=== PATIENT | female | born 1950 | race Caucasian/White ===

== ENCOUNTER 2017-01-10 08:01 | Emergency (ER) | payer MEDICAID ==
[~2017-01-10] VITALS: Ht 170.2 cm; Wt 51.0 kg
[~2017-01-10 08:01] MED LIST: MOBI7.5T PO
[2017-01-10 08:06] VITALS: BP 169/87; PULSE 98; RESP 20; TEMP 97.8; O2SAT 97
--- NOTE | 2017-01-10 08:24 | PD ---
HPI Chief Complaint: Fall Time Seen by Provider: 08:12 Travel History International Travel<30 days: No Contact w/Intl Traveler<30days: No Traveled to known affect area: No History of Present Illness HPI The patient was seen and examined in the presence of the nurse. She complains of right sided rib cage pain. One week ago she tripped over a rock and fell. She landed on her right side rib cage. She has pain. Worse with movement. Severity is moderate. Duration one week. No alleviating factors. PFSH Past Medical History Arthritis: Yes Asthma: No Heart Rhythm Problems: No Cardiovascular Problems: Yes (PHLEBITIS) High Cholesterol: No Chest Pain: Yes (on admission 11/2014) Congestive Heart Failure: No COPD: No Cerebrovascular Accident: No Diminished Hearing: No Gastrointestinal Disorders: Yes ("sharp pains ,that is it." ) Headaches: No Hiatal Hernia: No Hypertension: No Immune Disorder: No Implanted Vascular Access Dvce: Yes Kidney Stones: Yes (denied) Musculoskeletal: Yes Neurologic: No Respiratory: No Immunizations Current: No Migraines: Yes (as a child ) Seizures: No Sleep Apnea: No Menopausal: Yes : 0 Past Surgical History Abdominal Surgery: No Appendectomy: Yes Cardiac Surgery: No Ear Surgery: No Endocrine Surgery: No Eye Surgery: No Genitourinary Surgery: No Gynecologic Surgery: No Neurologic Surgery: Yes (CYST REMOVED FROM SPINE) Oral Surgery: No Thoracic Surgery: No Tonsillectomy: Yes Other Surgery: Yes Social History Alcohol Use: No Tobacco Use: No Substance Use: No Allergies-Medications (Allergen,Severity, Reaction): Coded Allergies: *MDRO Multi-Drug Resistant Organism (Verified Adverse Reaction, Unknown, ) 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 Reported Meds & Prescriptions Reported Meds & Active Scripts Active Percocet (Oxycodone-Acetaminophen) 5-325 mg Tab 1 Tab PO Q6H PRN Mobic (Meloxicam) 7.5 Mg Tab 7.5 Mg PO Q12HR 30 Days Review of Systems General / Constitutional: No: Fever HENT: No: Headaches Cardiovascular: Positive: Chest Pain or Discomfort Respiratory: No: Cough Gastrointestinal: No: Nausea Physical Exam Narrative RESPIRATORY: Respiratory effort unlabored, no retractions or use of accessory muscles. Breath sounds are clear and symmetric. CARDIOVASCULAR: Regular rate and rhythm without murmur. Extremities showed no edema or varicosities. GASTROINTESTINAL: Abdomen soft, non-tender, nondistended. Positive bowel sounds. No hepato-splenomegaly, or palpable masses. No guarding. SKIN: Focused skin assessment reveals no rash or ulcers. Skin is warm and dry. Palpation shows no induration or nodules. Muscle skull:. She has a lot of tenderness in the mid and anterior axillary line of the right rib cage. There is no ecchymosis or crepitus. Data Data Last Documented VS Vital Signs Date Time Temp Pulse Resp B/P Pulse Ox O2 Delivery O2 Flow Rate FiO2 01/10/17 08:25 90 16 97 Room Air 01/10/17 08:06 97.8 169/87 Orders Chest, Single Ap (01/10/17 ) Morphine Inj (Morphine Inj) (01/10/17 08:30) Ondansetron Inj (Zofran Inj) (01/10/17 08:30) MDM Medical Decision Making Medical Screen Exam Complete: Yes Emergency Medical Condition: Yes Medical Record Reviewed: Yes Differential Diagnosis Rib fracture, rib contusion, pneumothorax Narrative Course I have reviewed the patient's electronic medical record. She was here for costochondritis January 2016 I reviewed her chest x-ray which is normal No rib fracture or pneumothorax I gave her injection of morphine and Zofran for symptom relief I wrote her pain medication There are no objective findings on exam and has normal x-ray. This injury is 1-week-old She should follow up with primary care and hopefully she will have some gradual resolution Diagnosis Primary Impression: Contusion of rib on right side Qualified Code: S20.211A - Contusion of rib on right side, initial encounter Additional Instructions: The patient was advised to follow up with their physician and return if they worsen. The patient was warned about potential sedation for the medications they will receive on prescription. Med/Other Pt SpecificInfo: Prescription(s) given Scripts Oxycodone-Acetaminophen (Percocet)5-325 mg Tab1 Tab PO Q6H PRN (PAIN) #20 TAB Ref 0 Prov:Colt Esposito MD 01/10/17 Disposition: 01 DISCHARGE HOME Condition: Stable Colt Esposito MD Jan 10, 2017 08:24
[2017-01-10] MEDS ORDERED: ONDANSETRON HCL 4 MG/2 ML VIAL IM ONE (08:30)
[2017-01-10] MEDS ORDERED: MORPHINE SULFATE 4 MG/ML INJ IM ONE (08:30)
--- NOTE | 2017-01-10 08:44 | RADHPO ---
EXAM DATE/TIME: 01/10/2017 08:24 [facility] COMPARISON: CHEST SINGLE AP, February 24, 2016, 11:39. INDICATIONS : Right side rib pain post fall last week. MEDICAL HISTORY : Arthritis. Renal calculi. Ulcers. SURGICAL HISTORY : Appendectomy. Tonsillectomy. Discectomy, cervical. ENCOUNTER: Initial ACUITY: 1 week PAIN SCORE: 10/10 LOCATION: Right chest FINDINGS: A single view of the chest demonstrates the lungs to be symmetrically aerated without evidence of mas s, infiltrate or effusion. The cardiomediastinal contours are unremarkable. Osseous structures are intact. CONCLUSION: No acute disease. No evidence of displaced rib fracture. Delio Rivera MD on January 10, 2017 at 8:42 Board Certified Radiologist. This report was verified electronically.
[2017-01-10] MEDS ORDERED: PERC5TAB12 PO (09:12)
[2017-01-10 09:15] VITALS: RESP 16
[2017-01-10 09:39] VITALS: BP 156/79
== END 2017-01-10 09:41 | disposition home or self-care (01) ==
LOC: PHED 08:01
DX: S20.211A Contusion of right front wall of thorax, initial encounter (principal); Z87.39 Personal history of other diseases of the musculoskeletal system and connective tissue; Z86.79 Personal history of other diseases of the circulatory system; Z87.19 Personal history of other diseases of the digestive system; W01.0XXA Fall on same level from slipping, tripping and stumbling without subsequent striking against object, initial encounter
CPT/HCPCS: 71010; 96372; 99283; J2270; J2405

== ENCOUNTER 2017-07-03 14:51 | Inpatient (IN) | payer MEDICAID, OTHER ==
[2017-07-03] VITALS (8 sets, daily range): BP systolic 124–141; BP diastolic 53–69; PULSE 84–105; RESP 15–18; TEMP 96.9–99.1; O2SAT 94–99
[~2017-07-03] VITALS: Ht 170.2 cm; Wt 57.1 kg
[~2017-07-03 14:51] MED LIST changes: +PERC5TAB12 PO
--- NOTE | 2017-07-03 15:25 | PD ---
HPI Chief Complaint: GI Complaint Time Seen by Provider: 15:09 Travel History International Travel<30 days: No Contact w/Intl Traveler<30days: No Traveled to known affect area: No History of Present Illness HPI C/O CRAMPY ABD PAIN, 6/10, DIARRHEA FOR COUPLE OF WEEKS, THAT DOESN'T SEEM TO BE IMPROVING, WATERY. PATIENT STATES THAT SHE TOOK ALLEVE FOR HER BACK PAIN. DENIES TAKING ANY ANTIBIOTICS AT ALL GOING BACK 2-3MONTHS. PCP IS DR AMAYA PMHX: OSTEOARTHRITIS, SLIPPED DISK, "CROOKED BACK", H/O NECK SURGERY AND BLEEDING ULCER. PFSH Past Medical History Arthritis: Yes Asthma: No Heart Rhythm Problems: No Cardiovascular Problems: Yes (PHLEBITIS) High Cholesterol: No Chest Pain: Yes Congestive Heart Failure: No COPD: No Cerebrovascular Accident: No Diminished Hearing: No Gastrointestinal Disorders: Yes ("sharp pains ,that is it." ) Headaches: No Hiatal Hernia: No Hypertension: No Immune Disorder: No Implanted Vascular Access Dvce: Yes Kidney Stones: Yes (denied) Musculoskeletal: Yes Neurologic: No Respiratory: No Immunizations Current: No Migraines: Yes (as a child ) Seizures: No Sleep Apnea: No Ulcer: Yes (states hx of bleeding ulcers) Influenza Vaccination: No ?: Not Menopausal: Yes : 0 Past Surgical History Abdominal Surgery: No Appendectomy: Yes Cardiac Surgery: No Ear Surgery: No Endocrine Surgery: No Eye Surgery: No Genitourinary Surgery: No Gynecologic Surgery: No Neurologic Surgery: Yes (CYST REMOVED FROM SPINE) Oral Surgery: No Thoracic Surgery: No Tonsillectomy: Yes Other Surgery: Yes Social History Alcohol Use: No Tobacco Use: No (QUIT 2009) Substance Use: No Allergies-Medications (Allergen,Severity, Reaction): Coded Allergies: *MDRO Multi-Drug Resistant Organism (Verified Adverse Reaction, Unknown, 07/03/17) 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 Reported Meds & Prescriptions Reported Meds & Active Scripts Active No Active Prescriptions or Reported Medications Physical Exam Narrative GENERAL: SKIN: Warm and dry. HEAD: Atraumatic. Normocephalic. EYES: Pupils equal and round. No scleral icterus. No injection or drainage. ENT: No nasal bleeding or discharge. Mucous membranes pink and moist. NECK: Trachea midline. No JVD. CARDIOVASCULAR: Regular rate and rhythm. RESPIRATORY: No accessory muscle use. Clear to auscultation. Breath sounds equal bilaterally. GASTROINTESTINAL: Abdomen soft, DIFFUSELY TTP, nondistended. HYPOACTIVE BOWEL SOUNDS MUSCULOSKELETAL: Extremities without clubbing, cyanosis, or edema. No obvious deformities. NEUROLOGICAL: Awake and alert. No obvious cranial nerve deficits. Motor grossly within normal limits. Five out of 5 muscle strength in the arms and legs. Normal speech. PSYCHIATRIC: Appropriate mood and affect; insight and judgment normal. Data Data Last Documented VS Vital Signs Date Time Temp Pulse Resp B/P (MAP) Pulse Ox O2 Delivery O2 Flow Rate FiO2 07/03/17 17:53 100 15 131/54 (79) 97 07/03/17 15:54 Room Air 07/03/17 15:09 99.1 Orders Orders Complete Blood Count With Diff (07/03/17 15:09) Comprehensive Metabolic Panel (07/03/17 15:09) Lipase (07/03/17:09) Prothrombin Time / Inr (Pt) (07/03/17:09) Act Partial Throm Time (Ptt) (07/03/17 15:09) Urinalysis - C+S If Indicated (07/03/17 15:09) Ct Abd/Pel W/O Iv Contrast (07/03/17 15:09) Iv Access Insert/Monitor (07/03/17 15:09) Ecg Monitoring (07/03/17 15:09) Oximetry (07/03/17 15:09) NPO (07/03/17 15:09) Sodium Chloride 0.9% Flush (Ns Flush) (07/03/17 15:15) Enteric Path (Stool) (07/03/17 15:56) C Diff Toxin Pcr (07/03/17 15:56) Giardia Antigen (Stool) (07/03/17 15:56) Stool Ova And Parasite Screen (07/03/17 15:56) Stool Wbc (Leukocytes) (07/03/17 15:56) Hydromorphone Pf Inj (Dilaudid Pf Inj) (07/03/17 16:00) Ondansetron Inj (Zofran Inj) (07/03/17 16:00) Metronidazole 500 Mg Inj (Flagyl 500 Mg (07/03/17 16:00) Hydromorphone Pf Inj (Dilaudid Pf Inj) (07/03/17 17:15) Type And Screen (07/03/17 17:03) Lactic Acid (07/03/17 17:03) Red Blood Cells (Rbc) (07/03/17 17:17) Blood Product Administration (07/03/17 17:17) Sodium Chlor 0.9% 250 Ml Inj (Ns 250 Ml (07/03/17 17:30) Admit Order (Ed Use Only) (07/03/17 ) Labs Laboratory Tests Test 07/03/17 15:50 07/03/17 16:58 07/03/17 17:16 Prothrombin Time 11.8 SEC Prothromb Time International Ratio 1.1 RATIO Activated Partial Thromboplast Time 23.8 SEC Blood Urea Nitrogen 11 MG/DL Creatinine 0.72 MG/DL Random Glucose 99 MG/DL Total Protein 7.2 GM/DL Albumin 2.6 GM/DL Calcium Level 8.9 MG/DL Alkaline Phosphatase 144 U/L Aspartate Amino Transf (AST/SGOT) 26 U/L Alanine Aminotransferase (ALT/SGPT) 28 U/L Total Bilirubin 0.2 MG/DL Sodium Level 138 MEQ/L Potassium Level 3.2 MEQ/L Chloride Level 105 MEQ/L Carbon Dioxide Level 24.4 MEQ/L Anion Gap 9 MEQ/L Estimat Glomerular Filtration Rate 82 ML/MIN Lipase 116 U/L White Blood Count 4.4 TH/MM3 Red Blood Count 2.77 MIL/MM3 Hemoglobin 5.2 GM/DL Hematocrit 17.9 % Mean Corpuscular Volume 64.7 FL Mean Corpuscular Hemoglobin 18.8 PG Mean Corpuscular Hemoglobin Concent 29.1 % Red Cell Distribution Width 18.6 % Platelet Count 484 TH/MM3 Mean Platelet Volume 7.4 FL Neutrophils (%) (Auto) 49.5 % Lymphocytes (%) (Auto) 37.1 % Monocytes (%) (Auto) 11.6 % Eosinophils (%) (Auto) 1.5 % Basophils (%) (Auto) 0.3 % Neutrophils # (Auto) 2.2 TH/MM3 Lymphocytes # (Auto) 1.6 TH/MM3 Monocytes # (Auto) 0.5 TH/MM3 Eosinophils # (Auto) 0.1 TH/MM3 Basophils # (Auto) 0.0 TH/MM3 CBC Comment AUTO DIFF Differential Comment AUTO DIFF CONFIRMED Ovalocytes 1+ Lactic Acid Level 0.7 mmol/L MDM Medical Decision Making Medical Screen Exam Complete: Yes Emergency Medical Condition: Yes Medical Record Reviewed: Yes Differential Diagnosis ENTERITIS V COLITIS V DIVERTIC V CHRONIC PANCREATITIS V ELECTROLYTE ABNL V C DIFF Narrative Course CURRENTLY WILL SIGN PATIENT OUT PENDING BLOODWORK AND REEVALUATION Scripts No Active Prescriptions or Reported Meds Jovany Robins MD Jul 03, 2017 15:25
--- NOTE | 2017-07-03 15:49 | RADRPT ---
EXAM DATE/TIME: 07/03/2017 15:29 [facility] COMPARISON: ANGIOGRAM, GASTRODUODENAL ART, January 13, 2015, 12:38. INDICATIONS : Diarrhea with abdominal and back pain for one month. ORAL CONTRAST: No oral contrast ingested. RADIATION DOSE: 4.54 CTDIvol (mGy) MEDICAL HISTORY : None Central cord syndrome. SURGICAL HISTORY : None. ENCOUNTER: Initial ACUITY: 1 month PAIN SCALE: 4/10 LOCATION: abdomen TECHNIQUE: Volumetric scanning of the abdomen and pelvis was performed. Using automated exposure control and ad justment of the mA and/or kV according to patient size, radiation dose was kept as low as reasonably achievable to obtain optimal diagnostic quality images. DICOM format image data is available electro nically for review and comparison. FINDINGS: LOWER LUNGS: Minimal scarring in the lung bases. LIVER: Pneumobilia likely related to previous sphincterotomy or other biliary tract intervention. No evidenc e of focal liver mass. SPLEEN: Normal size without lesion. PANCREAS: Within normal limits. KIDNEYS: Multiple nonobstructing stones present bilaterally involving upper and mid pole collecting system on the right and upper mid and lower pole collecting system on the left. ADRENAL GLANDS: Within normal limits. VASCULAR: Embolization coils present in the region of the proximal gastroduodenal artery and the proximal gastr oepiploic artery BOWEL/MESENTERY: Mild nonspecific fluid and gaseous distention of the colon. No evidence of wall thickening or surroun ding inflammatory changes. Small bowel is focally unremarkable. ABDOMINAL WALL: Within normal limits. RETROPERITONEUM: There is no lymphadenopathy. BLADDER: No wall thickening or mass. REPRODUCTIVE: Within normal limits. INGUINAL: There is no lymphadenopathy or hernia. MUSCULOSKELETAL: Within normal limits for patient age. CONCLUSION: Pneumobilia. Nonobstructing kidney stones. Nonspecific fluid and gaseous distention of the colon Rajesh Hayden MD on July 03, 2017 at 15:40 Board Certified Radiologist. This report was verified electronically.
[2017-07-03] MEDS ORDERED: HYDROmorphone HCL PF 2 MG/ML VIAL IVS ONE (16:00)
[2017-07-03] MEDS ORDERED: ONDANSETRON HCL 4 MG/2 ML VIAL IVP ONE (16:00)
[2017-07-03] MEDS ORDERED: metroNIDAZOLE 500 MG INJ 100 ML IV ONE (16:00)
[2017-07-03 16:05] LABS: CHLORIDE 105 MEQ/L (98-107); POTASSIUM 3.2 MEQ/L (3.5-5.1); SODIUM (NA) 138 MEQ/L (136-145)
[2017-07-03 16:09] LABS: ANION GAP 9 MEQ/L (5-15); APTT (PATIENT) 23.8 SEC (24.3-30.1); BICARBONATE 24.4 MEQ/L (21.0-32.0); BLOOD UREA NITROGEN 11 MG/DL (7-18); INTERNATIONAL NORMALIZED RATIO 1.1 RATIO; PROTHROMBIN TIME - PATIENT 11.8 SEC (9.8-11.6)
--- NOTE | 2017-07-03 16:12 | PD ---
Data Data Last Documented VS Vital Signs Date Time Temp Pulse Resp B/P (MAP) Pulse Ox O2 Delivery O2 Flow Rate FiO2 07/03/17 17:53 100 15 131/54 (79) 97 07/03/17 15:54 Room Air 07/03/17 15:09 99.1 Orders Orders Complete Blood Count With Diff (07/03/17 15:09) Comprehensive Metabolic Panel (07/03/17 15:09) Lipase (07/03/17 15:09) Prothrombin Time / Inr (Pt) (07/03/17 15:09) Act Partial Throm Time (Ptt) (07/03/17 15:09) Urinalysis - C+S If Indicated (07/03/17 15:09) Ct Abd/Pel W/O Iv Contrast (07/03/17 15:09) Iv Access Insert/Monitor (07/03/17 15:09) Ecg Monitoring (07/03/17 15:09) Oximetry (07/03/17 15:09) NPO (07/03/17 15:09) Sodium Chloride 0.9% Flush (Ns Flush) (07/03/17 15:15) Enteric Path (Stool) (07/03/17 15:56) C Diff Toxin Pcr (07/03/17 15:56) Giardia Antigen (Stool) (07/03/17 15:56) Stool Ova And Parasite Screen (07/03/17 15:56) Stool Wbc (Leukocytes) (07/03/17 15:56) Hydromorphone Pf Inj (Dilaudid Pf Inj) (07/03/17 16:00) Ondansetron Inj (Zofran Inj) (07/03/17 16:00) Metronidazole 500 Mg Inj (Flagyl 500 Mg (07/03/17 16:00) Hydromorphone Pf Inj (Dilaudid Pf Inj) (07/03/17 17:15) Type And Screen (07/03/17 17:03) Lactic Acid (07/03/17 17:03) Red Blood Cells (Rbc) (07/03/17 17:17) Blood Product Administration (07/03/17 17:17) Sodium Chlor 0.9% 250 Ml Inj (Ns 250 Ml (07/03/17 17:30) Admit Order (Ed Use Only) (07/03/17 ) Labs Laboratory Tests Test 07/03/17 15:50 07/03/17 16:58 07/03/17 17:16 Prothrombin Time 11.8 SEC Prothromb Time International Ratio 1.1 RATIO Activated Partial Thromboplast Time 23.8 SEC Blood Urea Nitrogen 11 MG/DL Creatinine 0.72 MG/DL Random Glucose 99 MG/DL Total Protein 7.2 GM/DL Albumin 2.6 GM/DL Calcium Level 8.9 MG/DL Alkaline Phosphatase 144 U/L Aspartate Amino Transf (AST/SGOT) 26 U/L Alanine Aminotransferase (ALT/SGPT) 28 U/L Total Bilirubin 0.2 MG/DL Sodium Level 138 MEQ/L Potassium Level 3.2 MEQ/L Chloride Level 105 MEQ/L Carbon Dioxide Level 24.4 MEQ/L Anion Gap 9 MEQ/L Estimat Glomerular Filtration Rate 82 ML/MIN Lipase 116 U/L White Blood Count 4.4 TH/MM3 Red Blood Count 2.77 MIL/MM3 Hemoglobin 5.2 GM/DL Hematocrit 17.9 % Mean Corpuscular Volume 64.7 FL Mean Corpuscular Hemoglobin 18.8 PG Mean Corpuscular Hemoglobin Concent 29.1 % Red Cell Distribution Width 18.6 % Platelet Count 484 TH/MM3 Mean Platelet Volume 7.4 FL Neutrophils (%) (Auto) 49.5 % Lymphocytes (%) (Auto) 37.1 % Monocytes (%) (Auto) 11.6 % Eosinophils (%) (Auto) 1.5 % Basophils (%) (Auto) 0.3 % Neutrophils # (Auto) 2.2 TH/MM3 Lymphocytes # (Auto) 1.6 TH/MM3 Monocytes # (Auto) 0.5 TH/MM3 Eosinophils # (Auto) 0.1 TH/MM3 Basophils # (Auto) 0.0 TH/MM3 CBC Comment AUTO DIFF Differential Comment AUTO DIFF CONFIRMED Ovalocytes 1+ Lactic Acid Level 0.7 mmol/L MDM Supervised Visit with SUSHILA: No Narrative Course Patient care assumed from Dr. Robins at 1600. This is a 66-year-old female presents emergency Department with generalized abdominal pain and diarrhea for the past month. Found to be significantly anemic in the emergency department requiring transfusion. Tachycardic but normotensive. Noncontrast CT scan of the abdomen was performed by Dr. Robins which did show some pneumobilia. There is no portal gas however. Patient does have some tenderness on examination, rectal exam did show some mucus in the stool but no gross blood. He was transfused in the emergency department after risk-benefit complications and alternatives were discussed blood transfusion. Patient verbalized understanding and agreement to those risks. Labs otherwise were fairly unremarkable. Patient was discussed with Dr. Torres for admission who is agreeable. She was started on Flagyl in the emergency department for presumed C. difficile. Has not been able to give a stool sample as of yet. Diagnosis Primary Impression: Acute blood loss anemia Additional Impression: Abdominal pain Admitting Information Admitting Physician Requests: Admit Scripts No Active Prescriptions or Reported Meds Condition: Stable Issa Woodard MD Jul 03, 2017 16:12
[2017-07-03 16:13] LABS: ALT (GPT) 28 U/L (10-53); AST (GOT) 26 U/L (15-37)
[2017-07-03 16:14] LABS: GLOMERULAR FILTRATION RATE 82 ML/MIN (>89); TOTAL BILIRUBIN ADULT 0.2 MG/DL (0.2-1.0)
[2017-07-03 16:15] LABS: ALKALINE PHOSPHATASE 144 U/L (45-117)
[2017-07-03 17:11] LABS: AUTOMATED NEUTROPHIL # 2.2 TH/MM3 (1.8-7.7); BASOPHIL % 0.3 % (0.0-2.0); EOSINOPHIL # 0.1 TH/MM3 (0-0.4); EOSINOPHIL % 1.5 % (0.0-4.0); LYMPH % 37.1 % (9.0-44.0); LYMPHOCYTE # 1.6 TH/MM3 (1.0-4.8); MEAN CELL VOLUME 64.7 FL (80.0-100.0); MEAN CORPUSCULAR HEMOGLOBIN 18.8 PG (27.0-34.0); MONO % 11.6 % (0.0-8.0); NEUT % 49.5 % (16.0-70.0); PLATELET COUNT 484 TH/MM3 (150-450); RED BLOOD COUNT 2.77 MIL/MM3 (4.00-5.30); RED CELL DISTRIBUTION WIDTH 18.6 % (11.6-17.2); WHITE BLOOD COUNT 4.4 TH/MM3 (4.0-11.0)
[2017-07-03 17:14] LABS: HEMO FLAGS AUTO DIFF; MEAN CORPUSCULAR HGB CONC 29.1 % (32.0-36.0)
[2017-07-03 17:15] LABS: HEMATOCRIT 17.9 % (35.0-46.0)
[2017-07-03] MEDS ORDERED: HYDROmorphone HCL PF 1 MG/ML VIAL IV PUSH ONE (17:15)
[2017-07-03] MEDS ORDERED: SODIUM CHLOR 0.9% 250 ML INJ 250 ML IV ONE (17:30)
[2017-07-03 17:59] LABS: OVALOCYTES 1+ (NORMAL)
[2017-07-03 18:00] LABS: SCAN/DIFF AUTO DIFF CONFIRMED
[2017-07-03] MEDS ORDERED: ACETAMINOPHEN 325 MG TAB PO PRN (19:00)
[2017-07-03] MEDS ORDERED: NALOXONE HCL 0.4 MG/ML AMP IV PUSH PRN (19:00)
[2017-07-03] MEDS: HYDROmorphone HCL PF 1 MG/ML VIAL IV PUSH PRN (23:29)
[2017-07-03] MEDS: SODIUM CHLORIDE 0.9% FLUSH 10 ML FLUSH IV FLUSH PRN (23:30)
[2017-07-04] VITALS (11 sets, daily range): BP systolic 127–168; BP diastolic 64–80; PULSE 82–96; RESP 14–20; TEMP 96.9–98.2; O2SAT 96–100
[2017-07-04 03:16] LABS: C. DIFF EPI 027 PRESUMPTIVE NEGATIVE (NEGATIVE)
[2017-07-04] MEDS: HYDROmorphone HCL PF 1 MG/ML VIAL IV PUSH PRN ×5 (03:40→22:41)
[2017-07-04] MEDS: SODIUM CHLORIDE 0.9% FLUSH 10 ML FLUSH IV FLUSH PRN ×2 (03:40→22:41)
[2017-07-04 04:50] LABS: BLOOD, URINE NEG (NEG); GLUCOSE,URINE NEG (NEG); KETONE, URINE NEG (NEG); NITRITE,URINE NEG (NEG)
[2017-07-04 04:58] LABS: URINE COLOR YELLOW (YELLW/STRAW)
[2017-07-04 04:59] LABS: MUCUS URINE FEW /lpf (OCC)
[2017-07-04 05:00] LABS: BACTERIA, URINE MOD /hpf; COMMENT (UR) CULTURE INDICATED; CULTURE IF INDICATED CULTURE INDICATED; SQUAMOUS EPITHELIAL CELL URINE 0-5 /hpf (0-5)
[2017-07-04 07:30] LABS: METHOD OF COLLECTION CLEAN CATCH
[2017-07-04 09:13] LABS: AUTOMATED NEUTROPHIL # 2.4 TH/MM3 (1.8-7.7); BASOPHIL % 0.2 % (0.0-2.0); EOSINOPHIL # 0.1 TH/MM3 (0-0.4); EOSINOPHIL % 2.4 % (0.0-4.0); LYMPH % 34.2 % (9.0-44.0); LYMPHOCYTE # 1.6 TH/MM3 (1.0-4.8); MEAN CELL VOLUME 74.7 FL (80.0-100.0); MEAN CORPUSCULAR HEMOGLOBIN 23.5 PG (27.0-34.0); MEAN CORPUSCULAR HGB CONC 31.4 % (32.0-36.0); MONO % 11.4 % (0.0-8.0); NEUT % 51.8 % (16.0-70.0); PLATELET COUNT 451 TH/MM3 (150-450); RED BLOOD COUNT 3.75 MIL/MM3 (4.00-5.30); RED CELL DISTRIBUTION WIDTH 23.5 % (11.6-17.2); WHITE BLOOD COUNT 4.6 TH/MM3 (4.0-11.0)
[2017-07-04 09:14] LABS: HEMO FLAGS AUTO DIFF
[2017-07-04 09:18] LABS: BICARBONATE 23.2 MEQ/L (21.0-32.0)
[2017-07-04 09:26] LABS: POTASSIUM 3.7 MEQ/L (3.5-5.1)
[2017-07-04 09:47] LABS: SCAN/DIFF AUTO DIFF CONFIRMED
--- NOTE | 2017-07-04 10:32 | HHI.HP ---
[facility] Primary [facility] Physician Non-Staff Admission Diagnosis Abdominal pain, Severe Anemia Diagnoses: Travel History International Travel<30 Days: No Contact w/Intl Traveler <30 Da: No Traveled to Known Affected Are: No History of Present Illness This is a pleasant 66-year-old female with past medical history of duodenal ulcer, and C. difficile colitis in 2014 who presents with a one-month history of diarrhea as well as generalized abdominal pain. The patient states she has been having 3-5 loose stools a day for the past month. She denies any blood in her stool however she states one week ago her stool was [place] as in color. The patient also has been having generalized abdominal pain. No association with meals. Aggravating factors include cough and movement. The patient also has been complaining of a sharp pain in the right side of her ribs. The patient did have a GI bleed with a large duodenal ulcer in 2014 which was treated with embolization of the gastroduodenal artery without further recurrence. The patient denies any alcohol use. She denies any nausea or vomiting. She currently is complaining of pain along the right rib cage. She states she is hungry and would like to eat. In the emergency department she was found to have a hemoglobin of 6 however guaiac was negative. She was transfused 2 units of packed red blood cells with improvement of hemoglobin to 8 this morning. Review of Systems Constitutional: DENIES: Fatigue, Weight loss, Chills Eyes: DENIES: Blurred vision, Diplopia Ears, nose, mouth, throat: DENIES: Throat pain, Odynophagia Respiratory: DENIES: Cough, Shortness of breath Cardiovascular: DENIES: Chest pain, Palpitations Gastrointestinal: COMPLAINS OF: Abdominal pain, Diarrhea, DENIES: Nausea, Vomiting Genitourinary: DENIES: Urinary frequency, Dysuria Musculoskeletal: DENIES: Joint pain, Muscle aches Integumentary: DENIES: Pruritus, Rash Hematologic/lymphatic: DENIES: Lymphadenopathy Neurologic: DENIES: Abnormal gait, Headache Psychiatric: DENIES: Anxiety, Confusion Past Family Social History Past Medical History History of cervical spinal stenosis with myelopathy status post C3 to C4 fusion in 2015 History of duodenal ulcer in 2015 status post embolization of the gastroduodenal artery C. difficile colitis in 2015 Psoriasis B 12 deficiency Nephrolithiasis Allergies: Coded Allergies: *MDRO Multi-Drug Resistant Organism (Verified Adverse Reaction, Unknown, 07/03/17) MRSA 2006 wounds Family History Reviewed and noncontributory Social History Denies alcohol tobacco or illicit drug use Physical Exam Vital Signs Vital Signs Date Time Temp Pulse Resp B/P (MAP) Pulse Ox O2 Delivery O2 Flow Rate FiO2 07/04/17 08:00 97.5 95 20 168/80 (109) 98 07/04/17 06:07 87 07/04/17 03:12 96.9 84 16 127/67 99 07/04/17 03:12 97.1 82 14 141/64 (89) 99 07/04/17 03:01 97.1 82 14 141/64 (89) 99 07/04/17 02:47 97.0 86 16 150/76 98 07/04/17 02:35 97.0 86 16 150/76 98 07/04/17 00:17 96.9 84 16 127/67 99 07/03/17 23:55 98.3 90 15 124/69 94 07/03/17 23:50 98.3 90 15 124/69 94 07/03/17 23:01 98.3 90 15 124/69 (87) 94 07/03/17 23:00 96.9 84 16 127/67 (87) 99 07/03/17 20:00 97.2 93 16 125/53 (77) 94 07/03/17 17:53 100 15 131/54 (79) 97 07/03/17 15:54 98 Room Air 07/03/17 15:09 99.1 105 18 141/65 (90) 97 Physical Exam GENERAL: Well-nourished, well-developed cachectic appearing female patient. SKIN: Warm and dry. HEAD: Normocephalic. EYES: No scleral icterus. No injection or drainage. NECK: Supple, trachea midline. No JVD or lymphadenopathy. CARDIOVASCULAR: Regular rate and rhythm without murmurs, gallops, or rubs. RESPIRATORY: Breath sounds equal bilaterally. No accessory muscle use. GASTROINTESTINAL: Abdomen soft, non-tender, nondistended. She does have some pain along the right lateral costochondral junction and lateral right 10th through 12 ribs. EXTREMITIES: No cyanosis, or edema. NEUROLOGICAL: Awake, alert, and oriented x 3. Non-focal. Laboratory Laboratory Tests Test 07/03/17 15:50 07/03/17 16:58 07/03/17 17:16 07/03/17 23:25 Prothrombin Time 11.8 Prothromb Time International Ratio 1.1 Activated Partial Thromboplast Time 23.8 Blood Urea Nitrogen 11 Creatinine 0.72 Random Glucose 99 Total Protein 7.2 Albumin 2.6 Calcium Level 8.9 Alkaline Phosphatase 144 Aspartate Amino Transf (AST/SGOT) 26 Alanine Aminotransferase (ALT/SGPT) 28 Total Bilirubin 0.2 Sodium Level 138 Potassium Level 3.2 Chloride Level 105 Carbon Dioxide Level 24.4 Anion Gap 9 Estimat Glomerular Filtration Rate 82 Lipase 116 White Blood Count 4.4 Red Blood Count 2.77 Hemoglobin 5.2 Hematocrit 17.9 Mean Corpuscular Volume 64.7 Mean Corpuscular Hemoglobin 18.8 Mean Corpuscular Hemoglobin Concent 29.1 Red Cell Distribution Width 18.6 Platelet Count 484 Mean Platelet Volume 7.4 Neutrophils (%) (Auto) 49.5 Lymphocytes (%) (Auto) 37.1 Monocytes (%) (Auto) 11.6 Eosinophils (%) (Auto) 1.5 Basophils (%) (Auto) 0.3 Neutrophils # (Auto) 2.2 Lymphocytes # (Auto) 1.6 Monocytes # (Auto) 0.5 Eosinophils # (Auto) 0.1 Basophils # (Auto) 0.0 CBC Comment AUTO DIFF Differential Comment AUTO DIFF CONFIRMED Ovalocytes 1+ Lactic Acid Level 0.7 Stool C. difficile Toxin (PCR) NEGATIVE Stl C. difficile Toxin Epiderm 027 PRESUMPTIVE NEGATIVE Test 07/04/17 03:55 07/04/17 08:30 Urine Collection Type CLEAN CATCH Urine Color YELLOW Urine Turbidity SLIGHT Urine pH 6.0 Urine Specific [place] 1.008 Urine Protein NEG Urine Glucose (UA) NEG Urine Ketones NEG Urine Occult Blood NEG Urine Nitrite NEG Urine Bilirubin NEG Urine Leukocyte Esterase SMALL Urine WBC 9-14 Urine Squamous Epithelial Cells 0-5 Urine Amorphous Sediment SMALL Urine Bacteria MOD Urine Mucus FEW Microscopic Urinalysis Comment CULTURE INDICATED White Blood Count 4.6 Red Blood Count 3.75 Hemoglobin 8.8 Hematocrit 28.0 Mean Corpuscular Volume 74.7 Mean Corpuscular Hemoglobin 23.5 Mean Corpuscular Hemoglobin Concent 31.4 Red Cell Distribution Width 23.5 Platelet Count 451 Mean Platelet Volume 8.0 Neutrophils (%) (Auto) 51.8 Lymphocytes (%) (Auto) 34.2 Monocytes (%) (Auto) 11.4 Eosinophils (%) (Auto) 2.4 Basophils (%) (Auto) 0.2 Neutrophils # (Auto) 2.4 Lymphocytes # (Auto) 1.6 Monocytes # (Auto) 0.5 Eosinophils # (Auto) 0.1 Basophils # (Auto) 0.0 CBC Comment AUTO DIFF Differential Comment AUTO DIFF CONFIRMED Blood Urea Nitrogen 10 Creatinine 0.71 Random Glucose 86 Calcium Level 8.9 Sodium Level 138 Potassium Level 3.7 Chloride Level 105 Carbon Dioxide Level 23.2 Anion Gap 10 Estimat Glomerular Filtration Rate 83 Date/Time Source Procedure Growth Status 07/03/17 23:25 Stool Stool Cryptosporidium Exam Pending Received 07/03/17 23:25 Stool Stool Stool Pus (BOY) Pending Received 07/03/17 23:25 Stool Stool Giardia Antigen (BOY) Pending Received 07/04/17 03:55 Urine Clean Catch Urine Culture Pending Received Result Diagram: 07/04/17 0830 07/04/17 0830 Imaging Last Impressions Abdomen/Pelvis CT 07/03/17 1509 Signed Impressions: Service Date/Time: Monday, July 03, 2017 15:29 - CONCLUSION: Pneumobilia. Nonobstructing kidney stones. Nonspecific fluid and gaseous distention of the colon MD Adela Godfrey VTE Risk Assessment Caprini VTE Risk Assessment: No/Low Risk (score <= 1) Caprini Risk Assessment Model Point Value = 1 Point Value = 2 Point Value = 3 Point Value = 5 Age 41-60 Minor surgery BMI > 25 kg/m2 Swollen legs Varicose veins or History of unexplained or recurrent spontaneous Oral contraceptives or hormone replacement Sepsis (< 1 month) Serious lung disease, including pneumonia (< 1 month) Abnormal pulmonary function Acute myocardial infarction Congestive heart failure (< 1 month) History of inflammatory bowel disease Medical patient at bed rest Age 61-74 Arthroscopic surgery Major open surgery (> 45 min) Laparoscopic surgery (> 45 min) Malignancy Confined to bed (> 72 hours) Immobilizing plaster cast Central venous access Age >= 75 History of VTE Family history of VTE Factor V Leiden Prothrombin [id number] Lupus anticoagulant Anticardiolipin antibodies Elevated serum homocysteine Heparin-induced thrombocytopenia Other congenital or acquired thrombophilia Stroke (< 1 month) Elective arthroplasty Hip, pelvis, or leg fracture Acute spinal cord injury (< 1 month) Prophylaxis Regimen Total Risk Factor Score Risk Level Prophylaxis Regimen 0-1 Low Early ambulation 2 Moderate Order ONE of the following: *Sequential Compression Device (SCD) *Heparin 5000 units SQ BID 3-4 Higher Order ONE of the following medications: *Heparin 5000 units SQ TID *Enoxaparin/Lovenox 40 mg SQ daily (WT < 150 kg, CrCl > 30 mL/min) *Enoxaparin/Lovenox 30 mg SQ daily (WT < 150 kg, CrCl > 10-29 mL/min) *Enoxaparin/Lovenox 30 mg SQ BID (WT < 150 kg, CrCl > 30 mL/min) AND/OR *Sequential Compression Device (SCD) 5 or more Highest Order ONE of the following medications: *Heparin 5000 units SQ TID (Preferred with Epidurals) *Enoxaparin/Lovenox 40 mg SQ daily (WT < 150 kg, CrCl > 30 mL/min) *Enoxaparin/Lovenox 30 mg SQ daily (WT < 150 kg, CrCl > 10-29 mL/min) *Enoxaparin/Lovenox 30 mg SQ BID (WT < 150 kg, CrCl > 30 mL/min) AND *Sequential Compression Device (SCD) Assessment and Plan Problem List: (1) Anemia ICD Code: D64.9 - Anemia, unspecified (2) Diarrhea ICD Code: R19.7 - Diarrhea, unspecified (3) Abdominal pain ICD Code: R10.9 - Unspecified abdominal pain Status: Acute Assessment and Plan -Severe anemia with diarrhea 1 month. Guaiac was negative. She does have history of gastric ulcer. She appears somewhat malnourished on exam and albumin is 2.6. C. difficile PCR was negative. Stool cultures are pending. She does have a reported history of B-12 deficiency however B-12 level was normal in 2015 and she has no macrocytosis. I will order iron studies, B12, ferritin, folate. She has been transfused 2 units of packed red blood cells. Continue Protonix IV. GI has been consulted for further evaluation. -Generalized abdominal pain, she also has some right lateral rib pain, diarrhea for 1 month. Unclear etiology. Pain is out of proportion to exam. Chest x- ray was negative for any rib fracture. Abdominal CT scan did show pneumobilia possibly related to previous sphincterotomy or other biliary tract intervention , nonobstructing kidney stones, nonspecific fluid and gaseous distention of the colon. I will order an abdominal ultrasound for further evaluation of the abdominal pain and pneumobilia. GI consultation is also been requested. -Abnormal urinalysis. We'll treat with Rocephin pending urine cultures. -Hypokalemia. Repleted. -Malnutrition. -DVT prophylaxis with SCDs. Salma Bar MD Jul 04, 2017 10:32
[2017-07-04 12:51] LABS: FERRITIN 10 NG/ML (8-252); TRANSFERRIN IRON PROFILE 302 MG/DL (200-360)
[2017-07-04] MEDS: cefTRIAXone INJ 1,000 MG in SODIUM CHLORIDE 0.9% INJ 100 ML IV SCH (13:17)
--- NOTE | 2017-07-04 15:05 | PD.CONS ---
HPI History of Present Illness This is a 66 year old female who presented to the ED with c/o persistent diarrhea and generalized abdominal pain x 1 month. States abdominal pain is worse at upper abdominal area and is mostly constant. Reports she is having 3-5 loose stools per day. Reports that she did note bright red blood in stool 1 week ago. Denies nausea and vomiting. Patient states she has never had an EGD or Colonoscopy, but apparently she did have a GI bleed with a large duodenal ulcer (2014), s/p embolization of gastroduodenal artery. In ED HH was 5.2/17.9, with negative guaiac. Patient is s/p 2 units of PRBCs on 07/04. HH 8.8 today. PMH significant for C difficile colitis in 2014. (Eda Mcpherson) PFSH Past Medical History History of cervical spinal stenosis with myelopathy, s/p C3 to C4 fusion in 2014 History of duodenal ulcer in 2014, s/p embolization of the gastroduodenal artery C. difficile colitis in 2014 Psoriasis B 12 deficiency Nephrolithiasis (Eda Mcpherson) Coded Allergies: *MDRO Multi-Drug Resistant Organism (Verified Adverse Reaction, Unknown, 07/03/17) MRSA 2006 wounds Medications Current Medications Medications (Trade) Dose Ordered Sig/Warren Route PRN Reason Start Time Stop Time Status Last Admin Dose Admin Sodium Chloride (NS Flush) 2 ml UNSCH PRN IV FLUSH FLUSH AFTER USING IV ACCESS 07/03/17 15:15 07/04/17 03:40 Acetaminophen (Tylenol) 650 mg Q4H PRN PO TEMP > 100.4 07/03/17 19:00 Ondansetron HCl (Zofran Inj) 4 mg Q6H PRN IVP NAUSEA OR VOMITING 07/03/17 19:00 Naloxone HCl (Narcan Inj) 0.4 mg UNSCH PRN IV PUSH SEE LABEL COMMENTS 07/03/17 19:00 Hydromorphone HCl (Dilaudid Pf Inj) 0.2 mg Q4H PRN IV PUSH pain >5 07/03/17 22:45 07/04/17 13:56 Ceftriaxone Sodium 1000 mg/ Sodium Chloride 100 ml @ 200 mls/hr Q24H IV 07/04/17 13:00 07/04/17 13:17 Family History Noncontributory Social History ETOH, denies Tobacco, denies Illicit Drugs, denies (Eda Mcpherson) Review of Systems Constitutional: DENIES: Diaphoretic episodes, Fatigue, Fever, Weight gain, Weight loss, Chills, Dizziness, Change in appetite, Night Sweats Endocrine: DENIES: Polydipsia, Polyuria Eyes: DENIES: Blurred vision, Photosensitivity, Double Vision Ears, nose, mouth, throat: DENIES: Hearing loss, Vertigo, Oral lesions, Throat pain, Hoarseness Respiratory: DENIES: Cough, Wheezing, Hemoptysis, Sputum production, Shortness of breath Cardiovascular: DENIES: Chest pain, Palpitations, Syncope, Lower Extremity Edema, Orthopnea, Claudication Gastrointestinal: COMPLAINS OF: Abdominal pain, Bloody stools, Diarrhea, DENIES : Black stools, Constipation, Nausea, Vomiting, Difficulty Swallowing, Anorexia , Odynophagia, Swelling of Abdomen, Heartburn, Hematemesis Genitourinary: DENIES: Urinary frequency, Urinary incontinence, Urgency, Hematuria, Dysuria, Nocturia Musculoskeletal: DENIES: Joint pain, Muscle aches, Stiffness, Joint Swelling, Back pain, Neck pain Integumentary: DENIES: Abnormal pigmentation, Nail changes, Pruritus, Rash, Jaundice Hematologic/lymphatic: DENIES: Bruising, Lymphadenopathy Immunologic/allergic: DENIES: Eczema, Urticaria Neurologic: DENIES: Abnormal gait, Headache, Localized weakness, Paresthesias Psychiatric: DENIES: Anxiety, Confusion, Mood changes, Depression, Agitation, Suicidal Ideation (Eda Mcpherson) GI Exam Vitals I&O Vital Signs Date Time Temp Pulse Resp B/P (MAP) Pulse Ox O2 Delivery O2 Flow Rate FiO2 07/04/17 12:00 98.1 92 18 142/79 (100) 96 07/04/17 08:00 97.5 95 20 168/80 (109) 98 07/04/17 08:00 93 07/04/17 07:00 93 07/04/17 06:07 87 07/04/17 03:12 96.9 84 16 127/67 99 07/04/17 03:12 97.1 82 14 141/64 (89) 99 07/04/17 03:01 97.1 82 14 141/64 (89) 99 07/04/17 02:47 97.0 86 16 150/76 98 07/04/17 02:35 97.0 86 16 150/76 98 07/04/17 00:17 96.9 84 16 127/67 99 07/03/17 23:55 98.3 90 15 124/69 94 07/03/17 23:50 98.3 90 15 124/69 94 07/03/17 23:01 98.3 90 15 124/69 (87) 94 07/03/17 23:00 96.9 84 16 127/67 (87) 99 07/03/17 20:00 97.2 93 16 125/53 (77) 94 07/03/17 17:53 100 15 131/54 (79) 97 07/03/17 15:54 98 Room Air 07/03/17 15:09 99.1 105 18 141/65 (90) 97 I/O 07/03/17 07/03/17 07/03/17 07/04/17 07/04/17 07/04/17 07:00 15:00 23:00 07:00 15:00 23:00 Intake Total 100 ml 1825 ml Balance 100 ml 1825 ml Intake Oral 1080 ml IV Total 100 ml Packed Cells 720 ml Blood Product IV Normal Saline Flush 25 ml # Voids 0 3 # Bowel Movements 3 3 Imaging Last Impressions Abdomen/Pelvis CT 07/03/17 1509 Signed Impressions: Service Date/Time: Monday, July 03, 2017 15:29 - CONCLUSION: Pneumobilia. Nonobstructing kidney stones. Nonspecific fluid and gaseous distention of the colon Rajesh Hayden MD Laboratory Test 07/03/17 15:50 07/03/17 16:58 07/03/17 17:16 07/03/17 23:25 Prothrombin Time 11.8 SEC Prothromb Time International Ratio 1.1 RATIO Activated Partial Thromboplast Time 23.8 SEC Blood Urea Nitrogen 11 MG/DL Creatinine 0.72 MG/DL Random Glucose 99 MG/DL Total Protein 7.2 GM/DL Albumin 2.6 GM/DL Calcium Level 8.9 MG/DL Alkaline Phosphatase 144 U/L Aspartate Amino Transf (AST/SGOT) 26 U/L Alanine Aminotransferase (ALT/SGPT) 28 U/L Total Bilirubin 0.2 MG/DL Sodium Level 138 MEQ/L Potassium Level 3.2 MEQ/L Chloride Level 105 MEQ/L Carbon Dioxide Level 24.4 MEQ/L Anion Gap 9 MEQ/L Estimat Glomerular Filtration Rate 82 ML/MIN Lipase 116 U/L White Blood Count 4.4 TH/MM3 Red Blood Count 2.77 MIL/MM3 Hemoglobin 5.2 GM/DL Hematocrit 17.9 % Mean Corpuscular Volume 64.7 FL Mean Corpuscular Hemoglobin 18.8 PG Mean Corpuscular Hemoglobin Concent 29.1 % Red Cell Distribution Width 18.6 % Platelet Count 484 TH/MM3 Mean Platelet Volume 7.4 FL Neutrophils (%) (Auto) 49.5 % Lymphocytes (%) (Auto) 37.1 % Monocytes (%) (Auto) 11.6 % Eosinophils (%) (Auto) 1.5 % Basophils (%) (Auto) 0.3 % Neutrophils # (Auto) 2.2 TH/MM3 Lymphocytes # (Auto) 1.6 TH/MM3 Monocytes # (Auto) 0.5 TH/MM3 Eosinophils # (Auto) 0.1 TH/MM3 Basophils # (Auto) 0.0 TH/MM3 CBC Comment AUTO DIFF Differential Comment AUTO DIFF CONFIRMED Ovalocytes 1+ Lactic Acid Level 0.7 mmol/L Stool C. difficile Toxin (PCR) NEGATIVE Stl C. difficile Toxin Epiderm 027 PRESUMPTIVE NEGATIVE Test 07/04/17 03:55 07/04/17 08:30 Urine Collection Type CLEAN CATCH Urine Color YELLOW Urine Turbidity SLIGHT Urine pH 6.0 Urine Specific [place] 1.008 Urine Protein NEG mg/dL Urine Glucose (UA) NEG mg/dL Urine Ketones NEG mg/dL Urine Occult Blood NEG Urine Nitrite NEG Urine Bilirubin NEG Urine Leukocyte Esterase SMALL Urine WBC 9-14 /hpf Urine Squamous Epithelial Cells 0-5 /hpf Urine Amorphous Sediment SMALL Urine Bacteria MOD /hpf Urine Mucus FEW /lpf Microscopic Urinalysis Comment CULTURE INDICATED White Blood Count 4.6 TH/MM3 Red Blood Count 3.75 MIL/MM3 Hemoglobin 8.8 GM/DL Hematocrit 28.0 % Mean Corpuscular Volume 74.7 FL Mean Corpuscular Hemoglobin 23.5 PG Mean Corpuscular Hemoglobin Concent 31.4 % Red Cell Distribution Width 23.5 % Platelet Count 451 TH/MM3 Mean Platelet Volume 8.0 FL Neutrophils (%) (Auto) 51.8 % Lymphocytes (%) (Auto) 34.2 % Monocytes (%) (Auto) 11.4 % Eosinophils (%) (Auto) 2.4 % Basophils (%) (Auto) 0.2 % Neutrophils # (Auto) 2.4 TH/MM3 Lymphocytes # (Auto) 1.6 TH/MM3 Monocytes # (Auto) 0.5 TH/MM3 Eosinophils # (Auto) 0.1 TH/MM3 Basophils # (Auto) 0.0 TH/MM3 CBC Comment AUTO DIFF Differential Comment AUTO DIFF CONFIRMED Blood Urea Nitrogen 10 MG/DL Creatinine 0.71 MG/DL Random Glucose 86 MG/DL Calcium Level 8.9 MG/DL Sodium Level 138 MEQ/L Potassium Level 3.7 MEQ/L Chloride Level 105 MEQ/L Carbon Dioxide Level 23.2 MEQ/L Anion Gap 10 MEQ/L Estimat Glomerular Filtration Rate 83 ML/MIN Iron Level 374 MCG/DL Total Iron Binding Capacity 423 MCG/DL Percent Iron Saturation 88.5 % Ferritin 10 NG/ML Vitamin B12 Level 610 PG/ML Folate 16.6 NG/ML Date/Time Source Procedure Growth Status 07/03/17 23:25 Stool Stool Cryptosporidium Exam Pending Resulted 07/03/17 23:25 Stool Stool Stool Pus (BOY) - Final FEW WBC'S Resulted 07/03/17 23:25 Stool Stool Giardia Antigen (BOY) Pending Resulted 07/04/17 03:55 Urine Clean Catch Urine Culture Pending Received Physical Examination HEENT: Normocephalic; atraumatic; no jaundice. Poor dentition. NECK: Neck is supple. CHEST: CTA CARDIAC: RRR with no murmur gallop or rubs. ABDOMEN: Soft, nondistended, mild epigastric TTP; no hepatosplenomegaly; bowel sounds are present EXTREMITIES: No clubbing, cyanosis, or edema. SKIN: Normal; no rash; no jaundice. LEAD SOFTWARE ARCHITECT: No focal deficits; alert and oriented x 3 (Eda Mcpherson) Assessment and Plan Plan ASSESSMENT: - Severe anemia. HH was 5.2/17.9 at admit (07/03). S/p 2 units of PRBCs on 07/04. HH 8.828 today. Patient denies ever having EGD/Colonoscopy. Does have history of GI bleed with a large duodenal ulcer (2014), s/p embolization of gastroduodenal artery - Diarrhea, persistent x 1 month. Reports 3-5 loose stools today. History of C. difficile in 2015. C diff PCR negative. Cryptosporidium, Giardia, and stool pending. Stool Pus with few WBCs - Abdominal pain, generalized. Unclear etiology. Reports worse upper abdominal pain. Abdominal/Pelvis CT 07/03/13--Pneumobilia. Nonobstructing kidney stones. Nonspecific fluid and gaseous distention of the colon PLAN: - EGD/Colonoscopy on Monday - Obtain consents - Clear liquids today - NPO after MN tonight - Bowel prep today - Monitor HH, transfuse as necessary - Await Abdominal US results - Await stools studies - Supportive care - Further recommendations to follow based on results of above Patient seen and examined by Dr. Edwards and myself and this note is written on his behalf. (Eda Mcpherson) Plan patient was seen and examined, agree with above note, will plan on: EGD for anemia and abdominal pain, monitor labs (Maral Edwards MD) Eda Mcpherson Jul 04, 2017 15:05 Maral Edwards MD Jul 04, 2017 17:48
[2017-07-04] MEDS ORDERED: PEG (High)/E-LYTE SOLN 4000 ML BTL PO ONE (22:15)
[2017-07-05] VITALS: BP 168/78; PULSE 79; RESP 20; TEMP 95.6; O2SAT 99
[2017-07-05 04:00] VITALS: BP 154/77; PULSE 86; RESP 20; TEMP 98; O2SAT 99
[2017-07-05] MEDS: HYDROmorphone HCL PF 1 MG/ML VIAL IV PUSH PRN ×2 (04:49→20:55)
[2017-07-05] MEDS: SODIUM CHLORIDE 0.9% FLUSH 10 ML FLUSH IV FLUSH PRN ×2 (04:50→20:55)
[2017-07-05 08:00] VITALS: BP 118/77; PULSE 79; RESP 18; TEMP 97.7; O2SAT 95
[2017-07-05] MEDS ORDERED: PROPOFOL 200 MG/20 ML AMP IV ONE (09:24)
--- NOTE | 2017-07-05 09:37 | PD.PROCEDR ---
GI Procedure REFERRING PHYSICIAN TACO PROCEDURE PERFORMED EGD with biopsy followed by a colonoscopy with biopsy INDICATION FOR PROCEDURE Anemia and rectal bleeding and diarrhea PROCEDURE: The procedure, risks and benefits were discussed with Ms. Pearl and informed consent was obtained. Anesthesia sedated her with Diprivan. She was placed in the left lateral decubitus position. EGD: The Pentax videoscope was introduced through the oropharynx and advanced to the second portion of the duodenum under direct visualization. Retroflexion was performed in the stomach. FINDINGS: The esophagus this appeared to be unremarkable and within normal limits The stomach this too appeared to be unremarkable and within normal limits The duodenum there was a large ulcer in the duodenal bulb with raised inflamed edematous edges of unclear significance no visible vessel was noted no active bleeding although the tissue surrounding the ulcer was very friable and oozed biopsies were taken from the ulcer base and the edges the rest of the duodenum was unremarkable Colonoscopy: The Pentax videoscope was introduced through the rectum and advanced to cecum where the ileocecal valve and appendiceal orifice were identified. Retroflexion was performed in the rectum. Colonic prep was good FINDINGS: Colonic withdrawal time greater than 6 minutes. As the scope was slowly withdrawn colonic mucosa was carefully inspected this was noted to be unremarkable and within normal limits although way through random biopsies were taken from the ascending and descending colon retroflexion in the rectum was unremarkable cells rectal examination ESTIMATED BLOOD LOSS: None SPECIMENS REMOVED: Duodenal biopsies and colon biopsies COMPLICATIONS: None IMPRESSION: Duodenal ulcer Normal colonoscopy PLAN: Await biopsy Low residue diet Protonix 40 mg twice a day EGD in 2 months Follow-up with GI post discharge Continue with current supportive care Boone Sanchez MD Jul 05, 2017 09:37
[2017-07-05] MEDS ORDERED: MORPHINE SULFATE 4 MG/ML INJ ONE (10:04)
[2017-07-05 10:59] LABS: BASOPHIL % 0.5 % (0.0-2.0); EOSINOPHIL # 0.1 TH/MM3 (0-0.4); EOSINOPHIL % 3.2 % (0.0-4.0); HEMATOCRIT 27.8 % (35.0-46.0); MEAN CELL VOLUME 74.9 FL (80.0-100.0); MEAN CORPUSCULAR HEMOGLOBIN 22.9 PG (27.0-34.0); MEAN CORPUSCULAR HGB CONC 30.5 % (32.0-36.0); NEUT % 62.3 % (16.0-70.0); PLATELET COUNT 457 TH/MM3 (150-450); RED BLOOD COUNT 3.71 MIL/MM3 (4.00-5.30); RED CELL DISTRIBUTION WIDTH 23.9 % (11.6-17.2); WHITE BLOOD COUNT 4.7 TH/MM3 (4.0-11.0)
[2017-07-05 11:10] LABS: HEMO FLAGS AUTO DIFF
[2017-07-05 11:11] LABS: BICARBONATE 26.2 MEQ/L (21.0-32.0)
[2017-07-05] MEDS ORDERED: LOPERAMIDE HCL 2 MG CAP PO ONE (11:15)
--- NOTE | 2017-07-05 11:20 | HHI.PR ---
Subjective Remarks Patient underwent EGD and colonoscopy this morning with a large duodenal ulcer found which was not bleeding. She continues to complain of diarrhea and generalized abdominal pain. She requests Imodium. Objective Vitals Vital Signs Date Time Temp Pulse Resp B/P (MAP) Pulse Ox O2 Delivery O2 Flow Rate FiO2 07/05/17 09:50 71 18 118/53 (74) 100 07/05/17 09:35 97.8 113 18 108/50 (69) 100 07/05/17 08:00 97.7 79 18 118/77 (91) 95 07/05/17 07:50 98.1 73 18 162/79 (106) 100 07/05/17 04:00 98.0 86 20 154/77 (102) 99 07/05/17 00:00 95.6 79 20 168/78 (108) 99 07/04/17 20:00 91 07/04/17 20:00 98.1 86 20 159/80 (106) 100 07/04/17 16:00 98.2 96 18 143/73 (96) 96 07/04/17 12:00 98.1 92 18 142/79 (100) 96 I/O 07/04/17 07/04/17 07/04/17 07/05/17 07/05/17 07/05/17 07:00 15:00 23:00 07:00 15:00 23:00 Intake Total 1910 ml 100 ml 0 ml 300 ml Balance 1910 ml 100 ml 0 ml 300 ml Intake Oral 1080 ml 0 ml IV Total 85 ml 100 ml Packed Cells 720 ml Blood Product IV Normal Saline Flush 25 ml Other 300 ml # Voids 3 4 3 # Bowel Movements 3 3 4 Result Diagram: 07/05/17 1040 07/05/17 1040 Objective Remarks GENERAL: cachectic appearing female patient in no apparent distress. SKIN: Warm and dry. HEAD: Normocephalic. EYES: No scleral icterus. No injection or drainage. NECK: Supple, trachea midline. No JVD or lymphadenopathy. CARDIOVASCULAR: Regular rate and rhythm without murmurs, gallops, or rubs. RESPIRATORY: Breath sounds equal bilaterally. No accessory muscle use. GASTROINTESTINAL: Abdomen soft, non-tender, nondistended. She does have some pain along the right lateral costochondral junction and lateral right 10th through 12 ribs. EXTREMITIES: No cyanosis, or edema. NEUROLOGICAL: Awake, alert, and oriented x 3. Non-focal. A/P Problem List: (1) Anemia ICD Code: D64.9 - Anemia, unspecified (2) Diarrhea ICD Code: R19.7 - Diarrhea, unspecified (3) Abdominal pain ICD Code: R10.9 - Unspecified abdominal pain Status: Acute (4) HCV (hepatitis C virus) ICD Code: B19.20 - Unspecified viral hepatitis C without hepatic coma (5) Duodenal ulcer ICD Code: K26.9 - Duodenal ulcer Status: Acute Assessment and Plan -Severe anemia with diarrhea 1 month. EGD showed a large ulcer in the duodenal bulb which was not bleeding with friable surrounding tissue and edematous raised edges, biopsies were taken. Colonoscopy was normal. Guaiac was negative. She does have history of gastric ulcer. She appears somewhat malnourished on exam and albumin is 2.6. C. difficile PCR and stool enteric pathogens PCR was negative. She does have a reported history of B-12 deficiency however B-12 level is normal. Iron studies normal however these were taken post red blood cell transfusion. She has been transfused 2 units of packed red blood cells-hemoglobin stable at 8.5. Continue Protonix by mouth. On liquid diet per GI. We'll give Imodium for the diarrhea. -Generalized abdominal pain, she also has some right lateral rib pain, diarrhea for 1 month. Unclear etiology. Pain is out of proportion to exam. Chest x- ray was negative for any rib fracture. Abdominal CT scan did show pneumobilia possibly related to previous sphincterotomy or other biliary tract intervention , nonobstructing kidney stones, nonspecific fluid and gaseous distention of the colon. -Abnormal urinalysis. We'll treat with Rocephin pending urine cultures. -Hypokalemia. Repleted. -Malnutrition. -DVT prophylaxis with SCDs. Salma Bar MD Jul 05, 2017 11:20
[2017-07-05 11:33] LABS: KERATOCYTES 1+ (NORMAL); OVALOCYTES 1+ (NORMAL); SCAN/DIFF AUTO DIFF CONFIRMED; TARGET CELLS 1+ (NORMAL)
[2017-07-05 12:00] VITALS: BP 121/85; PULSE 72; RESP 17; TEMP 98; O2SAT 96
[2017-07-05] MEDS ORDERED: LACTATED RINGER'S 1000 ML INJ 1,000 ML ONE (12:06)
[2017-07-05] MEDS: PANTOPRAZOLE SOD 40 MG DELAYED RELEASE TAB PO SCH ×2 (13:11→20:54)
[2017-07-05] MEDS: cefTRIAXone INJ 1,000 MG in SODIUM CHLORIDE 0.9% INJ 100 ML IV SCH (13:12)
--- NOTE | 2017-07-05 14:01 | EKG ---
Date Performed: 07/05/2017 Time Performed: 10:47:22 PTAGE: 66 years EKG: Sinus rhythm VOLTAGE CRITERIA FOR LVH ABNORMAL ECG INTERPRETATION BASED ON A DEFAULT AGE OF 40 YEARS PREVIOUS TRACING : 09/07/2015 08.37 DOCTOR: Jd Salcedo Interpretating Date/Time 07/05/2017 13:59:19
[2017-07-05] MEDS: ONDANSETRON HCL 4 MG/2 ML VIAL IVP PRN (15:34)
[2017-07-05 20:00] VITALS: BP 149/74; PULSE 91; RESP 20; TEMP 98.1; O2SAT 99
[2017-07-05] MEDS: LOPERAMIDE HCL 2 MG CAP PO PRN (20:54)
[2017-07-05 23:00] VITALS: PULSE 77
[2017-07-06] VITALS (14 sets, daily range): BP systolic 126–167; BP diastolic 63–77; PULSE 69–88; RESP 16–21; TEMP 96–98.1; O2SAT 93–100
[2017-07-06] MEDS: HYDROmorphone HCL PF 1 MG/ML VIAL IV PUSH PRN ×5 (00:50→22:38)
[2017-07-06] MEDS: SODIUM CHLORIDE 0.9% FLUSH 10 ML FLUSH IV FLUSH PRN ×2 (00:50→04:58)
[2017-07-06 06:28] LABS: AUTOMATED NEUTROPHIL # 3.6 TH/MM3 (1.8-7.7); BASOPHIL % 0.5 % (0.0-2.0); EOSINOPHIL # 0.2 TH/MM3 (0-0.4); EOSINOPHIL % 3.9 % (0.0-4.0); HEMATOCRIT 24.2 % (35.0-46.0); LYMPH % 28.6 % (9.0-44.0); LYMPHOCYTE # 1.8 TH/MM3 (1.0-4.8); MEAN CELL VOLUME 73.6 FL (80.0-100.0); MONO % 9.4 % (0.0-8.0); NEUT % 57.6 % (16.0-70.0); PLATELET COUNT 439 TH/MM3 (150-450); RED BLOOD COUNT 3.29 MIL/MM3 (4.00-5.30); RED CELL DISTRIBUTION WIDTH 23.8 % (11.6-17.2); WHITE BLOOD COUNT 6.3 TH/MM3 (4.0-11.0)
[2017-07-06 06:38] LABS: HEMO FLAGS AUTO DIFF; MEAN CORPUSCULAR HGB CONC 29.8 % (32.0-36.0)
[2017-07-06 06:41] LABS: BICARBONATE 25.6 MEQ/L (21.0-32.0)
[2017-07-06 07:15] LABS: TARGET CELLS 1+ (NORMAL)
[2017-07-06 07:16] LABS: KERATOCYTES OCC (NORMAL); OVALOCYTES 1+ (NORMAL); SCAN/DIFF AUTO DIFF CONFIRMED
[2017-07-06] MEDS ORDERED: SODIUM CHLOR 0.9% 250 ML INJ 250 ML IV ONE (09:15)
[2017-07-06] MEDS ORDERED: POTASSIUM CHLORIDE 10 MEQ CONTROLLED RELEASE TAB PO ONE (10:00)
[2017-07-06] MEDS: LOPERAMIDE HCL 2 MG CAP PO PRN ×2 (10:53→21:02)
[2017-07-06] MEDS: ONDANSETRON HCL 4 MG/2 ML VIAL IVP PRN (10:54)
--- NOTE | 2017-07-06 11:46 | HHI.GIFU ---
Subjective Remarks Patient comfortable in bed denies any pain but complains of continued rectal bleeding she complains of blood clots and some abdominal pain Objective Vitals I&O Vital Signs Date Time Temp Pulse Resp B/P (MAP) Pulse Ox O2 Delivery O2 Flow Rate FiO2 07/06/17 08:45 98.0 83 20 149/69 (95) 100 07/06/17 04:00 98.1 86 16 136/70 (92) 99 07/06/17 00:00 98.0 88 21 167/77 (107) 95 07/05/17 23:00 77 07/05/17 20:00 98.1 91 20 149/74 (99) 99 07/05/17 12:00 98.0 72 17 121/85 (97) 96 I/O 07/05/17 07/05/17 07/05/17 07/06/17 07/06/17 07/06/17 07:00 15:00 23:00 07:00 15:00 23:00 Intake Total 0 ml 300 ml 720 ml 240 ml Balance 0 ml 300 ml 720 ml 240 ml Intake Oral 0 ml 720 ml 240 ml Other 300 ml # Voids 3 2 7 2 # Bowel Movements 4 2 0 Laboratory Laboratory Tests Test 07/06/17 06:00 White Blood Count 6.3 Red Blood Count 3.29 Hemoglobin 7.2 Hematocrit 24.2 Mean Corpuscular Volume 73.6 Mean Corpuscular Hemoglobin 22.0 Mean Corpuscular Hemoglobin Concent 29.8 Red Cell Distribution Width 23.8 Platelet Count 439 Mean Platelet Volume 7.3 Neutrophils (%) (Auto) 57.6 Lymphocytes (%) (Auto) 28.6 Monocytes (%) (Auto) 9.4 Eosinophils (%) (Auto) 3.9 Basophils (%) (Auto) 0.5 Neutrophils # (Auto) 3.6 Lymphocytes # (Auto) 1.8 Monocytes # (Auto) 0.6 Eosinophils # (Auto) 0.2 Basophils # (Auto) 0.0 CBC Comment AUTO DIFF Differential Comment AUTO DIFF CONFIRMED Target Cells 1+ Ovalocytes 1+ Keratocytes OCC Blood Urea Nitrogen 2 Creatinine 0.60 Random Glucose 79 Calcium Level 8.7 Sodium Level 141 Potassium Level 3.0 Chloride Level 108 Carbon Dioxide Level 25.6 Anion Gap 7 Estimat Glomerular Filtration Rate 101 Date/Time Source Procedure Growth Status 07/03/17 23:25 Stool Stool Cryptosporidium Exam Pending Resulted 07/03/17 23:25 Stool Stool Stool Pus (BOY) - Final FEW WBC'S Resulted 07/03/17 23:25 Stool Stool Giardia Antigen (BOY) Pending Resulted 07/04/17 03:55 Urine Clean Catch Urine Culture - Final Klebsiella Oxytoca Complete Imaging Last Impressions Abdomen/Pelvis CT 07/03/17 1509 Signed Impressions: Service Date/Time: Monday, July 03, 2017 15:29 - CONCLUSION: Pneumobilia. Nonobstructing kidney stones. Nonspecific fluid and gaseous distention of the colon Rajesh Hayden MD Physical Exam HEENT: normocephalic; atraumatic; no jaundice. Throat is clear. NECK: Neck is supple CHEST: Chest is clear to auscultation and percussion. CARDIAC: Regular rate and rhythm with no murmur gallop or rubs. ABDOMEN: Soft, nondistended, mild tenderness; no hepatosplenomegaly; bowel sounds are present in all four quadrants. EXTREMITIES: No clubbing, cyanosis, or edema. SKIN: Normal; no rash; no jaundice. RIGGING UP MAN: No focal deficits; alert and oriented times three. Assessment and Plan Plan Patient with anemia and rectal bleeding with diarrhea Underwent EGD yesterday and was found to have a large duodenal ulcer no stigmata of recent bleeding but certainly quite a bit of friability surrounding it This is most likely a cause of continued oozing and bleeding Continue with PPI Transfuse 2 units of packed RBCs Monitor labs and transfuse as needed We may need to repeat endoscopy if there is continued blood loss Avoid anticoagulants and aspirin Boone Sanchez MD Jul 06, 2017 11:46
[2017-07-06] MEDS: cefTRIAXone INJ 1,000 MG in SODIUM CHLORIDE 0.9% INJ 100 ML IV SCH (12:35)
--- NOTE | 2017-07-06 15:12 | HHI.PR ---
Subjective Remarks Patient continues to complain of generalized abdominal pain. She states she had bright red blood per rectum with 2 clots however the nurse states that she had not noticed any blood per rectum. Blood pressure is stable and she is not tachycardic. Hemoglobin is 7 and I ordered 2 units of packed red blood cells. Objective Vitals Vital Signs Date Time Temp Pulse Resp B/P (MAP) Pulse Ox O2 Delivery O2 Flow Rate FiO2 07/06/17 13:18 17 07/06/17 12:19 97.7 78 16 137/63 (87) 100 07/06/17 08:45 98.0 83 20 149/69 (95) 100 07/06/17 04:00 98.1 86 16 136/70 (92) 99 07/06/17 00:00 98.0 88 21 167/77 (107) 95 07/05/17 23:00 77 07/05/17 20:00 98.1 91 20 149/74 (99) 99 I/O 07/05/17 07/05/17 07/05/17 07/06/17 07/06/17 07/06/17 07:00 15:00 23:00 07:00 15:00 23:00 Intake Total 0 ml 300 ml 720 ml 240 ml Balance 0 ml 300 ml 720 ml 240 ml Intake Oral 0 ml 720 ml 240 ml Other 300 ml # Voids 3 2 7 2 2 # Bowel Movements 4 2 0 Result Diagram: 07/06/17 0600 07/06/17 0600 Objective Remarks GENERAL: cachectic appearing female patient in no apparent distress. SKIN: Warm and dry. HEAD: Normocephalic. EYES: No scleral icterus. No injection or drainage. NECK: Supple, trachea midline. No JVD or lymphadenopathy. CARDIOVASCULAR: Regular rate and rhythm without murmurs, gallops, or rubs. RESPIRATORY: Breath sounds equal bilaterally. No accessory muscle use. GASTROINTESTINAL: Abdomen soft, non-tender, nondistended. She does have some pain along the right lateral costochondral junction and lateral right 10th through 12 ribs. EXTREMITIES: No cyanosis, or edema. NEUROLOGICAL: Awake, alert, and oriented x 3. Non-focal. A/P Problem List: (1) Anemia ICD Code: D64.9 - Anemia, unspecified Status: Acute (2) Diarrhea ICD Code: R19.7 - Diarrhea, unspecified (3) Abdominal pain ICD Code: R10.9 - Unspecified abdominal pain Status: Acute (4) HCV (hepatitis C virus) ICD Code: B19.20 - Unspecified viral hepatitis C without hepatic coma (5) Duodenal ulcer ICD Code: K26.9 - Duodenal ulcer Status: Acute Assessment and Plan -Duodenal ulcer EGD showed a large ulcer in the duodenal bulb which was not bleeding with friable surrounding tissue and edematous raised edges, biopsies were taken. Colonoscopy was normal. Guaiac was negative. She does have history of gastric ulcer. She appears somewhat malnourished on exam and albumin is 2.6. C. difficile PCR and stool enteric pathogens PCR was negative. She does have a reported history of B-12 deficiency however B-12 level is normal. Iron studies normal however these were taken post red blood cell transfusion. She has been transfused 2 units of packed red blood cells- hemoglobin stable at 8.5. Continue Protonix by mouth. On liquid diet per GI. We'll give Imodium for the diarrhea. -Anemia of acute and chronic blood loss. Status post 2 units packed red blood cells. We'll give additional 2 units today repeat CBC in the morning. Nurse to notify for any blood per rectum. Patient may need repeat endoscopy in the morning. Discussed with Dr. Delgado. -Generalized abdominal pain, she also has some right lateral rib pain, diarrhea for [address] scan did show pneumobilia possibly related to previous sphincterotomy or other biliary tract intervention, nonobstructing kidney stones, nonspecific fluid and gaseous distention of the colon. Pain is likely due to the ulcer. Continue pain control as needed. -Abnormal urinalysis. We'll treat with Rocephin pending urine cultures. -Hypokalemia. Repleted. -Malnutrition. -DVT prophylaxis with SCDs. Salma Bar MD Jul 06, 2017 15:12
[2017-07-06] MEDS: PANTOPRAZOLE SOD 40 MG DELAYED RELEASE TAB PO SCH ×2 (21:00→21:03)
[2017-07-07] VITALS: BP 163/80; PULSE 79; RESP 16; TEMP 98; O2SAT 97
[2017-07-07] MEDS: HYDROmorphone HCL PF 1 MG/ML VIAL IV PUSH PRN ×4 (02:35→21:48)
[2017-07-07 06:20] LABS: AUTOMATED NEUTROPHIL # 3.2 TH/MM3 (1.8-7.7); BASOPHIL # 0.1 TH/MM3 (0-0.2); EOSINOPHIL # 0.4 TH/MM3 (0-0.4); EOSINOPHIL % 5.9 % (0.0-4.0); HEMATOCRIT 34.5 % (35.0-46.0); HEMO FLAGS DIFF FINAL; LYMPH % 32.4 % (9.0-44.0); LYMPHOCYTE # 2.1 TH/MM3 (1.0-4.8); MEAN CELL VOLUME 78.1 FL (80.0-100.0); MEAN CORPUSCULAR HEMOGLOBIN 25.6 PG (27.0-34.0); MEAN CORPUSCULAR HGB CONC 32.8 % (32.0-36.0); MONO % 10.6 % (0.0-8.0); NEUT % 50.1 % (16.0-70.0); PLATELET COUNT 400 TH/MM3 (150-450); RED BLOOD COUNT 4.42 MIL/MM3 (4.00-5.30); RED CELL DISTRIBUTION WIDTH 23.9 % (11.6-17.2); WHITE BLOOD COUNT 6.5 TH/MM3 (4.0-11.0)
[2017-07-07 06:30] LABS: POTASSIUM 3.6 MEQ/L (3.5-5.1)
[2017-07-07 06:36] LABS: BICARBONATE 27.4 MEQ/L (21.0-32.0)
[2017-07-07 08:06] VITALS: BP 123/52; PULSE 85; RESP 16; TEMP 98.5; O2SAT 92
[2017-07-07] MEDS: PANTOPRAZOLE SOD 40 MG DELAYED RELEASE TAB PO SCH ×2 (08:34→20:57)
[2017-07-07] MEDS: LOPERAMIDE HCL 2 MG CAP PO PRN (08:35)
--- NOTE | 2017-07-07 10:06 | HHI.PR ---
Subjective Remarks Patient states she has severe more episodes of blood per rectume last night. No tachycardia, hb 11 this morning after 2 units rbc transfusion yesterday. pt c/o hunger. Objective Vitals Vital Signs Date Time Temp Pulse Resp B/P (MAP) Pulse Ox O2 Delivery O2 Flow Rate FiO2 07/07/17 08:06 98.5 85 16 123/52 (75) 92 07/07/17 00:00 98.0 79 16 163/80 (107) 97 07/06/17 20:00 96.0 81 20 158/70 (99) 97 07/06/17 19:56 96.0 81 20 158/70 97 07/06/17 19:00 98.1 69 18 145/75 93 07/06/17 18:00 98.0 74 19 147/68 93 07/06/17 17:00 98.0 18 132/76 100 07/06/17 16:20 97.6 81 18 146/68 99 07/06/17 16:19 98.0 80 20 126/76 (93) 100 07/06/17 16:05 97.2 77 18 157/69 07/06/17 15:54 96.8 77 17 156/69 100 07/06/17 13:18 17 07/06/17 12:19 97.7 78 16 137/63 (87) 100 I/O 07/06/17 07/06/17 07/06/17 07/07/17 07/07/17 07/07/17 07:00 15:00 23:00 07:00 15:00 23:00 Intake Total 240 ml 2513 ml 0 ml Output Total 0 ml Balance 240 ml 2513 ml 0 ml Intake Oral 240 ml 1680 ml 0 ml Packed Cells 800 ml Blood Product IV Normal Saline Flush 33 ml Output Urine Total 0 ml Stool Total 0 ml # Voids 2 2 7 4 # Bowel Movements 0 7 3 Result Diagram: 07/07/1710 07/07/1710 Objective Remarks GENERAL: cachectic appearing female patient in no apparent distress. SKIN: Warm and dry. HEAD: Normocephalic. EYES: No scleral icterus. No injection or drainage. NECK: Supple, trachea midline. No JVD or lymphadenopathy. CARDIOVASCULAR: Regular rate and rhythm without murmurs, gallops, or rubs. RESPIRATORY: Breath sounds equal bilaterally. No accessory muscle use. GASTROINTESTINAL: Abdomen soft, non-tender, nondistended. She does have some pain along the right lateral costochondral junction and lateral right 10th through 12 ribs. EXTREMITIES: No cyanosis, or edema. NEUROLOGICAL: Awake, alert, and oriented x 3. Non-focal. A/P Problem List: (1) Anemia ICD Code: D64.9 - Anemia, unspecified Status: Acute (2) Diarrhea ICD Code: R19.7 - Diarrhea, unspecified (3) Abdominal pain ICD Code: R10.9 - Unspecified abdominal pain Status: Acute (4) HCV (hepatitis C virus) ICD Code: B19.20 - Unspecified viral hepatitis C without hepatic coma (5) Duodenal ulcer ICD Code: K26.9 - Duodenal ulcer Status: Acute Assessment and Plan -Duodenal ulcer - EGD showed larged ulcer in the duodenal bulb which was not bleeding with friable surrounding tissue and edematous raised edges, biopsies were taken. Colonoscopy was normal. S/p total 4 units of packed red blood cells-hemoglobin at 11 this morning. Continue Protonix by mouth. On liquid diet per GI. Pt c/o bleeding last night, may need repeat EGD. -Anemia of acute and chronic blood loss. Status post 4 units packed red blood cells. monitor CBC. -Chronic diarrhea - C. difficile PCR and stool enteric pathogens PCR was negative. Colonoscopy negative. Imodium prn. -Generalized abdominal pain, she also has some right lateral rib pain, diarrhea for [address] scan did show pneumobilia possibly related to previous sphincterotomy or other biliary tract intervention, nonobstructing kidney stones, nonspecific fluid and gaseous distention of the colon. Pain is likely due to the ulcer. Continue pain control as needed. -UTI - klebsiella oxytoca. continue Rocephin. -Hypokalemia. Repleted. -Malnutrition. -DVT prophylaxis with SCDs. Salma Bar MD Jul 07, 2017 10:06
--- NOTE | 2017-07-07 11:05 | HHI.GIFU ---
Subjective Remarks Patient laying in bed comfortably, she stated that she still have rectal bleeding, nursing staff did not see any blood coming, her hemoglobin is stable at 11.7 today, she is hungry want to eat Objective Vitals I&O Vital Signs Date Time Temp Pulse Resp B/P (MAP) Pulse Ox O2 Delivery O2 Flow Rate FiO2 07/07/17 08:06 98.5 85 16 123/52 (75) 92 07/07/17 00:00 98.0 79 16 163/80 (107) 97 07/06/17 20:00 96.0 81 20 158/70 (99) 97 07/06/17 19:56 96.0 81 20 158/70 97 07/06/17 19:00 98.1 69 18 145/75 93 07/06/17 18:00 98.0 74 19 147/68 93 07/06/17 17:00 98.0 18 132/76 100 07/06/17 16:20 97.6 81 18 146/68 99 07/06/17 16:19 98.0 80 20 126/76 (93) 100 07/06/17 16:05 97.2 77 18 157/69 07/06/17 15:54 96.8 77 17 156/69 100 07/06/17 13:18 17 07/06/17 12:19 97.7 78 16 137/63 (87) 100 I/O 07/06/17 07/06/17 07/06/17 07/07/17 07/07/17 07/07/17 07:00 15:00 23:00 07:00 15:00 23:00 Intake Total 240 ml 2513 ml 0 ml Output Total 0 ml Balance 240 ml 2513 ml 0 ml Intake Oral 240 ml 1680 ml 0 ml Packed Cells 800 ml Blood Product IV Normal Saline Flush 33 ml Output Urine Total 0 ml Stool Total 0 ml # Voids 2 2 7 4 # Bowel Movements 0 7 3 Laboratory Laboratory Tests Test 07/07/17 06:10 White Blood Count 6.5 Red Blood Count 4.42 Hemoglobin 11.3 Hematocrit 34.5 Mean Corpuscular Volume 78.1 Mean Corpuscular Hemoglobin 25.6 Mean Corpuscular Hemoglobin Concent 32.8 Red Cell Distribution Width 23.9 Platelet Count 400 Mean Platelet Volume 6.9 Neutrophils (%) (Auto) 50.1 Lymphocytes (%) (Auto) 32.4 Monocytes (%) (Auto) 10.6 Eosinophils (%) (Auto) 5.9 Basophils (%) (Auto) 1.0 Neutrophils # (Auto) 3.2 Lymphocytes # (Auto) 2.1 Monocytes # (Auto) 0.7 Eosinophils # (Auto) 0.4 Basophils # (Auto) 0.1 CBC Comment DIFF FINAL Differential Comment Blood Urea Nitrogen 2 Creatinine 0.74 Random Glucose 80 Calcium Level 8.6 Sodium Level 140 Potassium Level 3.6 Chloride Level 107 Carbon Dioxide Level 27.4 Anion Gap 6 Estimat Glomerular Filtration Rate 79 Date/Time Source Procedure Growth Status 07/03/17 23:25 Stool Stool Cryptosporidium Exam - Final NEGATIVE - NO CRYPTOSPORIDIUM ANTIGEN... Complete 07/03/17 23:25 Stool Stool Stool Pus (BOY) - Final FEW WBC'S Complete 07/03/17 23:25 Stool Stool Giardia Antigen (BOY) - Final NEGATIVE - NO GIARDIA ANTIGEN DETECTE... Complete 07/04/17 03:55 Urine Clean Catch Urine Culture - Final Klebsiella Oxytoca Complete Physical Exam HEENT: normocephalic; atraumatic; no jaundice. Throat is clear. Poor dentition , NECK: Neck is supple CHEST: Chest is clear to auscultation and percussion. CARDIAC: Regular rate and rhythm with no murmur gallop or rubs. ABDOMEN: Soft, nondistended, mild tenderness; no hepatosplenomegaly; bowel sounds are present in all four quadrants. EXTREMITIES: No clubbing, cyanosis, or edema. SKIN: Normal; no rash; no jaundice. PROFESSOR OF JOURNALISM: No focal deficits; alert and oriented times three. Assessment and Plan Plan Patient with anemia and rectal bleeding with diarrhea Underwent EGD yesterday and was found to have a large duodenal ulcer no stigmata of recent bleeding but certainly quite a bit of friability surrounding it This is most likely a cause of continued oozing and bleeding Continue with PPI Transfuse 2 units of packed RBCs Monitor labs and transfuse as needed We may need to repeat endoscopy if there is continued blood loss Avoid anticoagulants and aspirin 07-07-17 patient seems to be doing better, hemoglobin is stable, and nursing staff doesn't report any bleeding, I had a discussion with . off-pump were going to repeat H&H this afternoon and if she is stable we will advance diet to regular and possibly discharge her home, she will follow up with GI in 1 week, if she started bleeding she will need a repeat upper endoscopy Maral Edwards MD Jul 07, 2017 11:05
[2017-07-07 12:38] VITALS: BP 145/59; PULSE 83; RESP 20; TEMP 98; O2SAT 95
[2017-07-07] MEDS: cefTRIAXone INJ 1,000 MG in SODIUM CHLORIDE 0.9% INJ 100 ML IV SCH (13:41)
[2017-07-07 13:59] LABS: HEMATOCRIT 35.6 % (35.0-46.0)
[2017-07-07 14:17] LABS: REVIEW FLAG FINAL
[2017-07-07 16:00] VITALS: BP 155/92; PULSE 80; RESP 18; TEMP 96.9; O2SAT 99
[2017-07-07 21:20] VITALS: BP 185/97; PULSE 76; RESP 20; TEMP 98.7; O2SAT 97
[2017-07-07 23:59] VITALS: BP 172/90; PULSE 95; RESP 20; TEMP 98.8; O2SAT 96
[2017-07-08] MEDS: HYDROmorphone HCL PF 1 MG/ML VIAL IV PUSH PRN ×3 (01:37→11:17)
[2017-07-08 07:12] LABS: AUTOMATED NEUTROPHIL # 2.4 TH/MM3 (1.8-7.7); BASOPHIL % 0.8 % (0.0-2.0); EOSINOPHIL # 0.3 TH/MM3 (0-0.4); EOSINOPHIL % 5.3 % (0.0-4.0); HEMATOCRIT 35.3 % (35.0-46.0); LYMPH % 36.2 % (9.0-44.0); LYMPHOCYTE # 1.8 TH/MM3 (1.0-4.8); MEAN CELL VOLUME 79.1 FL (80.0-100.0); MEAN CORPUSCULAR HEMOGLOBIN 24.3 PG (27.0-34.0); MEAN CORPUSCULAR HGB CONC 30.8 % (32.0-36.0); NEUT % 46.7 % (16.0-70.0); PLATELET COUNT 409 TH/MM3 (150-450); RED BLOOD COUNT 4.46 MIL/MM3 (4.00-5.30); RED CELL DISTRIBUTION WIDTH 25.2 % (11.6-17.2); WHITE BLOOD COUNT 5.1 TH/MM3 (4.0-11.0)
[2017-07-08 07:20] LABS: HEMO FLAGS AUTO DIFF
[2017-07-08 07:21] LABS: POTASSIUM 3.3 MEQ/L (3.5-5.1)
[2017-07-08 07:24] LABS: BICARBONATE 28.3 MEQ/L (21.0-32.0)
[2017-07-08 08:00] VITALS: BP 152/69; PULSE 80; RESP 18; TEMP 98.5; O2SAT 97
[2017-07-08 08:20] LABS: SCAN/DIFF AUTO DIFF CONFIRMED
[2017-07-08] MEDS: SODIUM CHLORIDE 0.9% FLUSH 10 ML FLUSH IV FLUSH PRN ×2 (08:50→11:17)
[2017-07-08] MEDS: PANTOPRAZOLE SOD 40 MG DELAYED RELEASE TAB PO SCH (08:51)
[2017-07-08] MEDS ORDERED: PANT40TA3 PO (11:24)
[2017-07-08] MEDS ORDERED: LOPE2CAP92 PO (11:24)
[2017-07-08] MEDS ORDERED: CIPR500T2 PO (11:24)
[2017-07-08] MEDS ORDERED: POTA-163 PO (11:28)
--- NOTE | 2017-07-08 11:28 | HHI.DS ---
Discharge Summary Admission Date Jul 03, 2017 at 18:58 Discharge Date: Jul 08, 2017 Admitting Diagnosis Abdominal pain, Severe Anemia (1) Anemia ICD Code: D64.9 - Anemia, unspecified Status: Acute (2) Diarrhea ICD Code: R19.7 - Diarrhea, unspecified (3) Abdominal pain ICD Code: R10.9 - Unspecified abdominal pain Status: Acute (4) HCV (hepatitis C virus) ICD Code: B19.20 - Unspecified viral hepatitis C without hepatic coma (5) Duodenal ulcer ICD Code: K26.9 - Duodenal ulcer Status: Acute Procedures EGD, colonoscopy Brief History - From Admission This is a pleasant 66-year-old female with past medical history of duodenal ulcer, and C. difficile colitis in 2014 who presents with a one-month history of diarrhea as well as generalized abdominal pain. The patient states she has been having 3-5 loose stools a day for the past month. She denies any blood in her stool however she states one week ago her stool was [place] as in color. The patient also has been having generalized abdominal pain. No association with meals. Aggravating factors include cough and movement. The patient also has been complaining of a sharp pain in the right side of her ribs. The patient did have a GI bleed with a large duodenal ulcer in 2014 which was treated with embolization of the gastroduodenal artery without further recurrence. The patient denies any alcohol use. She denies any nausea or vomiting. She currently is complaining of pain along the right rib cage. She states she is hungry and would like to eat. In the emergency department she was found to have a hemoglobin of 6 however guaiac was negative. She was transfused 2 units of packed red blood cells with improvement of hemoglobin to 8 this morning. CBC/BMP: 07/08/17 0703 07/08/17 0703 Significant Findings Laboratory Tests Test 07/06/17 06:00 07/07/17 06:10 07/07/17 13:17 07/08/17 07:03 Red Blood Count 3.29 MIL/MM3 (4.00-5.30) Hemoglobin 7.2 GM/DL (11.6-15.3) 11.3 GM/DL (11.6-15.3) 11.0 GM/DL (11.6-15.3) 10.9 GM/DL (11.6-15.3) Hematocrit 24.2 % (35.0-46.0) 34.5 % (35.0-46.0) Mean Corpuscular Volume 73.6 FL (80.0-100.0) 78.1 FL (80.0-100.0) 79.1 FL (80.0-100.0) Mean Corpuscular Hemoglobin 22.0 PG (27.0-34.0) 25.6 PG (27.0-34.0) 24.3 PG (27.0-34.0) Mean Corpuscular Hemoglobin Concent 29.8 % (32.0-36.0) 30.8 % (32.0-36.0) Red Cell Distribution Width 23.8 % (11.6-17.2) 23.9 % (11.6-17.2) 25.2 % (11.6-17.2) Monocytes (%) (Auto) 9.4 % (0.0-8.0) 10.6 % (0.0-8.0) 11.0 % (0.0-8.0) Target Cells 1+ (NORMAL) Ovalocytes 1+ (NORMAL) Keratocytes OCC (NORMAL) Blood Urea Nitrogen 2 MG/DL (7-18) 2 MG/DL (7-18) 2 MG/DL (7-18) Potassium Level 3.0 MEQ/L (3.5-5.1) 3.3 MEQ/L (3.5-5.1) Chloride Level 108 MEQ/L (98-107) Mean Platelet Volume 6.9 FL (7.0-11.0) 6.6 FL (7.0-11.0) Eosinophils (%) (Auto) 5.9 % (0.0-4.0) 5.3 % (0.0-4.0) Estimat Glomerular Filtration Rate 79 ML/MIN (>89) Creatinine 0.46 MG/DL (0.50-1.00) Imaging Last Impressions Abdomen/Pelvis CT 07/03/17 6401 Signed Impressions: Service Date/Time: Monday, July 03, 2017 15:29 - CONCLUSION: Pneumobilia. Nonobstructing kidney stones. Nonspecific fluid and gaseous distention of the colon Rajesh Hayden MD PE at Discharge GENERAL: cachectic appearing female patient in no apparent distress. SKIN: Warm and dry. HEAD: Normocephalic. EYES: No scleral icterus. No injection or drainage. NECK: Supple, trachea midline. No JVD or lymphadenopathy. CARDIOVASCULAR: Regular rate and rhythm without murmurs, gallops, or rubs. RESPIRATORY: Breath sounds equal bilaterally. No accessory muscle use. GASTROINTESTINAL: Abdomen soft, non-tender, nondistended. She does have some pain along the right lateral costochondral junction and lateral right 10th through 12 ribs. EXTREMITIES: No cyanosis, or edema. NEUROLOGICAL: Awake, alert, and oriented x 3. Non-focal. Pt update on day of discharge Patient is doing well. She states she had a bowel movement with small amount of old blood in it. Abdominal pain improved. Hospital Course The patient was admitted to the hospital, she was transfused a total of 4 units packed red blood cells. Gastroenterology was consulted. She underwent EGD showing a large nonbleeding duodenal ulcer, colonoscopy was normal. Stool studies were negative for infection. The patient was observed for several days to ensure hemoglobin remained stable. The patient was also treated for UTI. The patient will be discharged home today. She is instructed to [facility]. She is instructed to avoid NSAIDs. Continue on PPI. Report any GI bleeding. She'll be treated with Cipro for 3 more days. Additionally we'll supplement her with potassium as she is prone to hypokalemia given her chronic diarrhea. Patient informed she may take Imodium as needed for the diarrhea. Pt Condition on Discharge: Stable Discharge Disposition: Discharge Home Discharge Time: > 30 minutes Discharge Instructions DIET: Follow Instructions for: As Tolerated, No Restrictions Additional Diet Instructions: No NSAIDS Avoid coffee Activities you can perform: Regular-No Restrictions Follow up Referrals: Gastroenterology - 2 Weeks @ [facility] New Medications: Ciprofloxacin (Ciprofloxacin) 500 Mg Tab 500 MG PO BID for Infection, #6 TAB 0 Refills Potassium Chloride ER (Potassium Chloride ER) 20 Meq Tab 20 MEQ PO DAILY for Electrolyte Replacement, #30 TAB 0 Refills Loperamide HCl (Hm Loperamide HCl) 2 Mg Cap 2 MG PO Q4H PRN for diarrhea, #30 CAP Pantoprazole (Pantoprazole) 40 Mg Tab 40 MG PO Q12HR for ulcer, #60 TAB Salma Bar MD Jul 08, 2017 11:27
== END 2017-07-08 12:59 | disposition home or self-care (01) | DRG 384 ==
LOC: PHED 14:51 → PHEDA 18:58 → PH5A 21:05 → PH3B 07-07 14:54
PROVIDERS: ADMIT Family Medicine; ATTEND Family Medicine
PROC: 30233N1 Transfusion of Nonautologous Red Blood Cells into Peripheral Vein, Percutaneous Approach (ICD-10-PCS; principal; 2017-07-03)
PROC: 0DBK8ZX Excision of Ascending Colon, Via Natural or Artificial Opening Endoscopic, Diagnostic (ICD-10-PCS; 2017-07-05)
PROC: 0DBM8ZX Excision of Descending Colon, Via Natural or Artificial Opening Endoscopic, Diagnostic (ICD-10-PCS; 2017-07-05)
PROC: 0DB98ZX Excision of Duodenum, Via Natural or Artificial Opening Endoscopic, Diagnostic (ICD-10-PCS; 2017-07-05 08:56)
DX: K26.9 Duodenal ulcer, unspecified as acute or chronic, without hemorrhage or perforation (principal); D62 Acute posthemorrhagic anemia; E46 Unspecified protein-calorie malnutrition; Z68.1 Body mass index [BMI] 19.9 or less, adult; N39.0 Urinary tract infection, site not specified; B96.1 Klebsiella pneumoniae [K. pneumoniae] as the cause of diseases classified elsewhere; Z87.11 Personal history of peptic ulcer disease; D50.0 Iron deficiency anemia secondary to blood loss (chronic); E87.6 Hypokalemia; B19.20 Unspecified viral hepatitis C without hepatic coma; M54.9 Dorsalgia, unspecified; Z79.1 Long term (current) use of non-steroidal anti-inflammatories (NSAID); Z87.891 Personal history of nicotine dependence; N20.0 Calculus of kidney; Z98.1 Arthrodesis status
CPT/HCPCS: 36430; 74176; 80048; 80053; 81001; 82607; 82728; 82746; 83540; 83550; 83605; 83690; 85014; 85018; 85025; 85610; 85730; 86850; 86900; 86901; 86920; 87077; 87086; 87186; 87205; 87328; 87329; 87493; 87506; 88305; 93005; 96365; 96375; 96376; J0696; J1170; J2270; J2405; J7050; J7120; P9016

== ENCOUNTER 2017-07-19 19:11 | Emergency (ER) | payer MEDICAID ==
[~2017-07-19 19:11] MED LIST changes: +CIPR500T2 PO; +LOPE2CAP92 PO; -MOBI7.5T PO; +PANT40TA3 PO; -PERC5TAB12 PO; +POTA-163 PO
[2017-07-19 19:19] VITALS: BP 146/67; PULSE 110; RESP 20; TEMP 98.7; O2SAT 98
[2017-07-19 20:30] VITALS: RESP 16; O2SAT 97
[2017-07-19 20:35] VITALS: BP 151/68; PULSE 97; RESP 16; O2SAT 97
[2017-07-19] MEDS ORDERED: SODIUM CHLOR 0.9% 1000 ML INJ 1,000 ML IV SCH (20:45)
[2017-07-19] MEDS ORDERED: FAMOTIDINE 20 MG/2 ML VIAL IV PUSH ONE (20:45)
[2017-07-19] MEDS ORDERED: ONDANSETRON HCL 4 MG/2 ML VIAL IVP ONE (20:45)
[2017-07-19] MEDS ORDERED: MORPHINE SULFATE 4 MG/ML INJ IV PUSH ONE (20:45)
--- NOTE | 2017-07-19 20:53 | PD ---
HPI Chief Complaint: GI Complaint Time Seen by Provider: 20:35 Travel History International Travel<30 days: No Contact w/Intl Traveler<30days: No Traveled to known affect area: No History of Present Illness HPI 66-year-old female complains abdominal pain, generalized weakness and blood in the stool. Patient was admitted to [facility] on July 03 and discharge July 08 for anemia, diarrhea, abdominal pain, hepatitis C, Duodenal ulcer. Patient was seen by yard jockey and had upper GI endoscopy and colonoscopy. Patient was found to have duodenal ulcer. Patient was given 4 units of blood transfusion for anemia. Patient was discharged home. Patient was given prescription for Cipro, potassium, loperamide, pantoprazole. Patient states that she has persistent abdominal pain and diarrhea despite the medications. Patient states that the stool has been dark and occasionally red. Patient states that she had persistent cramping pain and sharp pain diffuse over the abdomen. Patient denies any pain radiation. Patient denies any fever chills. Patient denies any dysuria or frequency. Patient denies any vaginal discharge or bleeding. PFSH Past Medical History Arthritis: Yes Asthma: No Heart Rhythm Problems: No Cancer: No (denied) Cardiovascular Problems: Yes (PHLEBITIS) High Cholesterol: No Chemotherapy: No (denied) Chest Pain: Yes Congestive Heart Failure: No COPD: No Cerebrovascular Accident: No Diminished Hearing: No Gastrointestinal Disorders: Yes Headaches: No Hiatal Hernia: No Hypertension: No Immune Disorder: No Implanted Vascular Access Dvce: Yes Kidney Stones: Yes Musculoskeletal: Yes Neurologic: No Psychiatric: No (denied) Respiratory: No Immunizations Current: No Migraines: Yes (as a child ) Seizures: No Sleep Apnea: No Ulcer: Yes (states hx of bleeding ulcers) Menopausal: Yes : 0 Past Surgical History Abdominal Surgery: No AICD: No (denied) Appendectomy: Yes Arteriovenous Shunt: No (denied) Cardiac Surgery: No Ear Surgery: No Endocrine Surgery: No Eye Surgery: No Genitourinary Surgery: No Gynecologic Surgery: No Insulin Pump: No (denied) Neurologic Surgery: Yes (CYST REMOVED FROM SPINE) Oral Surgery: No Thoracic Surgery: No Tonsillectomy: Yes Other Surgery: Yes Social History Alcohol Use: No Tobacco Use: No (QUIT 2009) Substance Use: No Allergies-Medications (Allergen,Severity, Reaction): Coded Allergies: *MDRO Multi-Drug Resistant Organism (Verified Adverse Reaction, Unknown, 07/03/17) MRSA 2006 wounds Reported Meds & Prescriptions Reported Meds & Active Scripts Active Potassium Chloride ER (Potassium Chloride) 20 Meq Tab 20 Meq PO DAILY Pantoprazole (Pantoprazole Sodium) 40 Mg Tab 40 Mg PO Q12HR Hm Loperamide HCl (Loperamide HCl) 2 Mg Cap 2 Mg PO Q4H PRN Review of Systems General / Constitutional: No: Fever Eyes: No: Visual changes HENT: No: Headaches Cardiovascular: No: Chest Pain or Discomfort Respiratory: No: Shortness of Breath Gastrointestinal: Positive: Abdominal Pain, Hematochezia Genitourinary: No: Dysuria Musculoskeletal: No: Pain Skin: No Rash Neurologic: No: Weakness Psychiatric: No: Depression Endocrine: No: Polydipsia Hematologic/Lymphatic: No: Easy Bruising Physical Exam Narrative GENERAL: Well-nourished, well-developed patient. SKIN: Focused skin assessment warm/dry. HEAD: Normocephalic. EYES: No scleral icterus. No injection or drainage. NECK: Supple, trachea midline. No JVD or lymphadenopathy. CARDIOVASCULAR: Regular rate and rhythm without murmurs, gallops, or rubs. RESPIRATORY: Breath sounds equal bilaterally. No accessory muscle use. GASTROINTESTINAL: Abdomen soft, nondistended. Patient has moderate diffuse tenderness over the abdomen. No rebound tenderness. No mass. MUSCULOSKELETAL: No cyanosis, or edema. BACK: Nontender without obvious deformity. No CVA tenderness. Neurologic exam normal. Data Data Last Documented VS Vital Signs Date Time Temp Pulse Resp B/P (MAP) Pulse Ox O2 Delivery O2 Flow Rate FiO2 07/19/17 22:15 14 07/19/17 21:35 118/59 (78) 100 Room Air 07/19/17 20:35 97 07/19/17 19:19 98.7 Orders Orders Complete Blood Count With Diff (07/19/17 20:45) Comprehensive Metabolic Panel (07/19/17 20:45) Lipase (07/19/17 20:45) Prothrombin Time / Inr (Pt) (07/19/17 20:45) Act Partial Throm Time (Ptt) (07/19/17 20:45) Urinalysis - C+S If Indicated (07/19/17 20:45) Ct Abd/Pel W Iv Contrast(Rout) (07/19/17 20:45) Iv Access Insert/Monitor (07/19/17 20:45) Ecg Monitoring (07/19/17 20:45) Oximetry (07/19/17 20:45) Morphine Inj (Morphine Inj) (07/19/17 20:45) Ondansetron Inj (Zofran Inj) (07/19/17 20:45) Sodium Chlor 0.9% 1000 Ml Inj (Ns 1000 M (07/19/17 20:45) Famotidine Inj (Pepcid Inj) (07/19/17 20:45) Type And Screen (07/19/17 20:45) Iohexol 350 Inj (Omnipaque 350 Inj) (07/19/17 22:28) Ed Discharge Order (07/19/17 23:11) Labs Laboratory Tests Test 07/19/17 20:55 07/19/17 22:55 White Blood Count 6.1 TH/MM3 Red Blood Count 4.09 MIL/MM3 Hemoglobin 10.7 GM/DL Hematocrit 32.5 % Mean Corpuscular Volume 79.5 FL Mean Corpuscular Hemoglobin 26.1 PG Mean Corpuscular Hemoglobin Concent 32.8 % Red Cell Distribution Width 28.5 % Platelet Count 259 TH/MM3 Mean Platelet Volume 9.6 FL Neutrophils (%) (Auto) 56.1 % Lymphocytes (%) (Auto) 27.1 % Monocytes (%) (Auto) 13.0 % Eosinophils (%) (Auto) 3.0 % Basophils (%) (Auto) 0.8 % Neutrophils # (Auto) 3.4 TH/MM3 Lymphocytes # (Auto) 1.7 TH/MM3 Monocytes # (Auto) 0.8 TH/MM3 Eosinophils # (Auto) 0.2 TH/MM3 Basophils # (Auto) 0.0 TH/MM3 CBC Comment AUTO DIFF Differential Comment AUTO DIFF CONFIRMED Platelet Estimate NORMAL Platelet Morphology Comment NORMAL Prothrombin Time 11.8 SEC Prothromb Time International Ratio 1.1 RATIO Activated Partial Thromboplast Time 26.4 SEC Blood Urea Nitrogen 18 MG/DL Creatinine 0.97 MG/DL Random Glucose 105 MG/DL Total Protein 7.6 GM/DL Albumin 3.1 GM/DL Calcium Level 9.2 MG/DL Alkaline Phosphatase 133 U/L Aspartate Amino Transf (AST/SGOT) 54 U/L Alanine Aminotransferase (ALT/SGPT) 44 U/L Total Bilirubin 0.3 MG/DL Sodium Level 138 MEQ/L Potassium Level 4.2 MEQ/L Chloride Level 104 MEQ/L Carbon Dioxide Level 25.0 MEQ/L Anion Gap 9 MEQ/L Estimat Glomerular Filtration Rate 58 ML/MIN Lipase 156 U/L [facility] Medical Decision Making Medical Screen Exam Complete: Yes Emergency Medical Condition: Yes Interpretation(s) Last Impressions Abdomen/Pelvis CT 07/19/172044 Signed Impressions: Service Date/Time: Wednesday, July 19, 2017 22:23 - CONCLUSION: No acute intra-abdominal or pelvic process relative to the prior study. Bilateral multiple subcentimeter calyceal nonobstructing stones. Nonspecific fluid distention of the colon is stable. Pneumatobilia air in the intra-and extrahepatic bile ducts gallbladder not with assurety visualized. Justin Bowers MD 23:04 PM. CBC hemoglobin 10.7 hematocrit 32.5. MCV 79.5. WBC 6.1 with normal differential. CMP within normal limit. Differential Diagnosis Differential diagnosis including bleeding gastric ulcer, bleeding duodenal ulcer , colitis, UTI, pyelonephritis, nephrolithiasis, pancreatitis, cholecystitis. Narrative Course 66-year-old female with abdominal pain, diarrhea, bloody stool. History GI bleed that needed transfusion recently. Normal saline solution 1 25 cc an hour. Pepcid 20 mg IV. Morphine 2 mg IV. Zofran 4 mg IV. Diagnosis Primary Impression: Abdominal pain Qualified Codes: R10.84 - Generalized abdominal pain Additional Impression: Gastroenteritis Patient Instructions: General Instructions Additional Instructions: Bentyl and Lomotil as directed. Follow-up with personal physician. Return if worse. Med/Other Pt SpecificInfo: Prescription(s) given Scripts Diphenoxylate-Atropine (Lomotil) 2.5-0.025 Mg Tab 1 TAB PO Q6H Y for DIARRHEA, #12 TAB 0 Refills Prov: Grant Jin MD 07/19/17 Dicyclomine (Bentyl) 10 Mg Cap 10 MG PO TID Y for PAIN SCALE 1 TO 10, #30 CAP 0 Refills Prov: Grant Jin MD 07/19/17 Disposition: 01 DISCHARGE HOME Condition: Stable Grant Jin MD Jul 19, 2017 20:53
[2017-07-19 21:17] LABS: AUTOMATED NEUTROPHIL # 3.4 TH/MM3 (1.8-7.7); BASOPHIL % 0.8 % (0.0-2.0); EOSINOPHIL # 0.2 TH/MM3 (0-0.4); HEMATOCRIT 32.5 % (35.0-46.0); LYMPH % 27.1 % (9.0-44.0); LYMPHOCYTE # 1.7 TH/MM3 (1.0-4.8); MEAN CELL VOLUME 79.5 FL (80.0-100.0); MEAN CORPUSCULAR HEMOGLOBIN 26.1 PG (27.0-34.0); MEAN CORPUSCULAR HGB CONC 32.8 % (32.0-36.0); NEUT % 56.1 % (16.0-70.0); PLATELET COUNT 259 TH/MM3 (150-450); RED BLOOD COUNT 4.09 MIL/MM3 (4.00-5.30); RED CELL DISTRIBUTION WIDTH 28.5 % (11.6-17.2); WHITE BLOOD COUNT 6.1 TH/MM3 (4.0-11.0)
[2017-07-19 21:20] LABS: HEMO FLAGS AUTO DIFF
[2017-07-19 21:27] LABS: CHLORIDE 104 MEQ/L (98-107); POTASSIUM 4.2 MEQ/L (3.5-5.1); SODIUM (NA) 138 MEQ/L (136-145)
[2017-07-19 21:31] LABS: ANION GAP 9 MEQ/L (5-15)
[2017-07-19 21:32] LABS: BLOOD UREA NITROGEN 18 MG/DL (7-18)
[2017-07-19 21:34] LABS: ALT (GPT) 44 U/L (10-53); AST (GOT) 54 U/L (15-37); GLOMERULAR FILTRATION RATE 58 ML/MIN (>89)
[2017-07-19 21:35] VITALS: BP 118/59; PULSE 90; RESP 16; O2SAT 100
[2017-07-19 21:36] LABS: TOTAL BILIRUBIN ADULT 0.3 MG/DL (0.2-1.0)
[2017-07-19 21:37] LABS: ALKALINE PHOSPHATASE 133 U/L (45-117)
[2017-07-19 21:48] LABS: APTT (PATIENT) 26.4 SEC (24.3-30.1); INTERNATIONAL NORMALIZED RATIO 1.1 RATIO; PROTHROMBIN TIME - PATIENT 11.8 SEC (9.8-11.6)
[2017-07-19 22:03] LABS: PLATELET ESTIMATE SMEAR NORMAL (NORMAL); PLATELET MORPHOLOGY NORMAL (NORMAL); SCAN/DIFF AUTO DIFF CONFIRMED
[2017-07-19] MEDS ORDERED: IOHEXOL 350 MG/ML 10 ML VIAL (for RAD DIAG) IVCONTRAST ONE (22:28)
--- NOTE | 2017-07-19 22:45 | RADRPT ---
EXAM DATE/TIME: 07/19/2017 22:23 [facility] COMPARISON: CT ABDOMEN & PELVIS W/O CONTRAST, July 03, 2017, 15:29. INDICATIONS : Diarrhea and diffuse abdominal pain. IV CONTRAST: 95 cc Omnipaque 350 (iohexol) IV ORAL CONTRAST: No oral contrast ingested. RADIATION DOSE: 5.69 CTDIvol (mGy) MEDICAL HISTORY : Bleeding ulcers. SURGICAL HISTORY : None. ENCOUNTER: Initial ACUITY: 2 weeks PAIN SCALE: 5/10 LOCATION: Bilateral abdomen TECHNIQUE: Volumetric scanning of the abdomen and pelvis was performed. Using automated exposure control and adjustment of the mA and/or kV according to patient size, radiation dose was kept as low as reasonably achievable to obtain optimal diagnostic quality images. DICOM format image data is av ailable electronically for review and comparison. FINDINGS: LOWER LUNGS: The visualized lower lungs are clear. LIVER: Homogeneous density without lesion. Gallbladder is not seen as a luminal structure. There is pneumatobilia with air in the intra-and extrahepatic bile ducts. SPLEEN: Normal size without lesion. PANCREAS: Within normal limits. KIDNEYS: Normal in size and shape. There is no mass or hydronephrosis. Bilateral multiple renal calculi calyceal or appreciated nonobstructive bowel subcentimeter cyst in size. ADRENAL GLANDS: Within normal limits. VASCULAR: There is no aortic aneurysm. Embolization coil is noted in the region of the upper abdo men gastroduodenal artery BOWEL/MESENTERY: The stomach, small bowel, and colon demonstrate no acute abnormality. There is no free intraperitoneal air or fluid. ABDOMINAL WALL: Within normal limits. RETROPERITONEUM: There is no lymphadenopathy. BLADDER: No wall thickening or mass. REPRODUCTIVE: Within normal limits. INGUINAL: There is no lymphadenopathy or hernia. MUSCULOSKELETAL: Within normal limits for patient age. Degenerative disc disease of the lower lum bar spine L4-5 and L5-S1 as well as facet arthritic change. CONCLUSION: No acute intra-abdominal or pelvic process relative to the prior study. Bilateral multiple subcentimeter calyceal nonobstructing ston es. Nonspecific fluid distention of the colon is stable. Pneumatobilia air in the intra-and extrahepa tic bile ducts gallbladder not with assurety visualized. Justin Bowers MD on July 19, 2017 at 22:37 Board Certified Radiologist. This report was verified electronically.
[2017-07-19 23:09] LABS: BLOOD, URINE NEG (NEG); GLUCOSE,URINE NEG (NEG); KETONE, URINE NEG (NEG); NITRITE,URINE NEG (NEG); PH, URINE 6.5 (5.0-8.5)
[2017-07-19 23:15] VITALS: BP 131/50; PULSE 85; RESP 16; O2SAT 98
[2017-07-19] MEDS ORDERED: LOMO2.5T PO (23:15)
[2017-07-19] MEDS ORDERED: DICY10 PO (23:15)
[2017-07-19 23:22] LABS: METHOD OF COLLECTION VOIDED; URINE COLOR YELLOW (YELLW/STRAW)
[2017-07-19 23:24] LABS: BACTERIA, URINE RARE /hpf; COMMENT (UR) CULTURE INDICATED; CULTURE IF INDICATED CULTURE INDICATED; SQUAMOUS EPITHELIAL CELL URINE 0-3 /hpf (0-5)
== END 2017-07-19 23:35 | disposition home or self-care (01) ==
LOC: PHED 19:11
DX: K52.9 Noninfective gastroenteritis and colitis, unspecified (principal)
CPT/HCPCS: 74177; 80053; 81001; 83690; 85025; 85610; 85730; 86850; 86900; 86901; 87086; 96361; 96374; 96375; 99285; J2270; J2405; J7030; Q9967

== ENCOUNTER 2017-07-20 08:47 | Emergency (ER) | payer MEDICAID ==
[~2017-07-20] VITALS: Ht 170.2 cm; Wt 49.0 kg
[~2017-07-20 08:47] MED LIST changes: -CIPR500T2 PO; +DICY10 PO; +LOMO2.5T PO
[2017-07-20 08:50] VITALS: BP 144/69; PULSE 87; RESP 16; TEMP 97.5; O2SAT 98
--- NOTE | 2017-07-20 10:12 | PD ---
HPI Chief Complaint: Abdominal Pain Time Seen by Provider: 09:56 Travel History International Travel<30 days: No Contact w/Intl Traveler<30days: No Traveled to known affect area: No History of Present Illness HPI The patient is a 66-year-old female who presents to the emergency department for lower abdominal pain, diarrhea, and rectal bleeding. The patient states she has a 1 month history of similar symptoms and was admitted to the hospitalist beginning of July. The patient underwent a CT of her abdomen and pelvis as well as an endoscopy and colonoscopy. The patient also stated she had stool cultures at that time which were negative. The patient was subsequently discharged home and advised to follow-up with a library assistant. The patient called the library assistant office, however, states she has Medicaid and would have to pay out of pocket. Therefore, she has not followed up with a library assistant. The patient was also evaluated in the emergency department last night where she had blood work and a CT abdomen and pelvis performed that was subsequent discharged home. The patient states she had 3 episodes of diarrhea this morning which she describes as loose with dark colored stool and occasional bright colored blood. She does complain of lower abdominal pain, distention, and cramping. She denies any dysuria. She denies any nausea or vomiting. The patient does have a history of previous appendectomy. The patient also has a history of previous feeding tube from similar symptoms 3 years ago per her report. Symptoms are moderate, there are no current alleviating or exacerbating factors. PFSH Past Medical History Arthritis: Yes Asthma: No Autoimmune Disease: No (denied) Anxiety: No (denied) Depression: No (denied) Heart Rhythm Problems: No Cancer: No (denied) Cardiovascular Problems: Yes (PHLEBITIS) High Cholesterol: No Chest Pain: Yes Congestive Heart Failure: No COPD: No Cerebrovascular Accident: No Diabetes: No (denied) Patient Takes Glucophage: No Diminished Hearing: No Endocrine: No (denied) Gastrointestinal Disorders: Yes GERD: No (denied) Headaches: No Hiatal Hernia: No Hypertension: No Immune Disorder: No Implanted Vascular Access Dvce: No (UNKNOWN) Kidney Stones: Yes Musculoskeletal: Yes Neurologic: No Psychiatric: No (denied) Reproductive: No (denied) Respiratory: No Immunizations Current: No Migraines: Yes (as a child ) Radiation Therapy: No (denied) Renal Failure: No (denied) Seizures: No Sickle Cell Disease: No (denied) Sleep Apnea: No Ulcer: Yes (states hx of bleeding ulcers) Tetanus Vaccination: > 5 Years Menopausal: Yes : 0 Past Surgical History Abdominal Surgery: No AICD: No (denied) Appendectomy: Yes Arteriovenous Shunt: No (denied) Cardiac Surgery: No Ear Surgery: No Endocrine Surgery: No Eye Surgery: No Genitourinary Surgery: No Gynecologic Surgery: No Insulin Pump: No (denied) Neurologic Surgery: Yes (CYST REMOVED FROM SPINE) Oral Surgery: No Pacemaker: No (denied) Thoracic Surgery: No Tonsillectomy: Yes Other Surgery: Yes Social History Alcohol Use: No Tobacco Use: No (QUIT 2009) Substance Use: No Allergies-Medications (Allergen,Severity, Reaction): Coded Allergies: *MDRO Multi-Drug Resistant Organism (Verified Adverse Reaction, Unknown, 07/20/17) 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 Reported Meds & Prescriptions Reported Meds & Active Scripts Active Lomotil (Diphenoxylate-Atropine) 2.5-0.025 Mg Tab 1 Tab PO Q6H PRN Bentyl (Dicyclomine HCl) 10 Mg Cap 10 Mg PO TID PRN Potassium Chloride ER (Potassium Chloride) 20 Meq Tab 20 Meq PO DAILY Pantoprazole (Pantoprazole Sodium) 40 Mg Tab 40 Mg PO Q12HR Hm Loperamide HCl (Loperamide HCl) 2 Mg Cap 2 Mg PO Q4H PRN Review of Systems Except as stated in HPI: all other systems reviewed are Neg General / Constitutional: No: Fever Cardiovascular: No: Chest Pain or Discomfort Respiratory: No: Shortness of Breath Gastrointestinal: Positive: Diarrhea, Abdominal Pain, Hematochezia, Loss of Appetite, No: Nausea, Vomiting, Hematemesis Genitourinary: No: Dysuria Musculoskeletal: No: Weakness Physical Exam Narrative GENERAL: Awake, alert, nontoxic-appearing 66-year-old female who appears her stated age and is in no acute respiratory distress. SKIN: Focused skin assessment warm/dry. HEAD: Atraumatic. Normocephalic. EYES: Pupils equal and round. No scleral icterus. No injection or drainage. ENT: No nasal bleeding or discharge. Mucous membranes pink and moist. NECK: Trachea midline. No JVD. CARDIOVASCULAR: Regular rate and rhythm. No murmur appreciated. Heart rate in the 80s. RESPIRATORY: No accessory muscle use. Clear to auscultation. Breath sounds equal bilaterally. GASTROINTESTINAL: Abdomen soft, mildly distended, tender in the lower quadrants bilaterally. Tympany noted. Well-healed right lower quadrant scar. Well- healed scar in the epigastrium. Rectal: The exam was performed in the presence of a female nurse. No gross blood. Guaiac negative. MUSCULOSKELETAL: No obvious deformities. No clubbing. No cyanosis. No edema. NEUROLOGICAL: Awake and alert. No obvious cranial nerve deficits. Motor grossly within normal limits. Normal speech. PSYCHIATRIC: Appropriate mood and affect; insight and judgment normal. Data Data Last Documented VS Vital Signs Date Time Temp Pulse Resp B/P (MAP) Pulse Ox O2 Delivery O2 Flow Rate FiO2 07/20/17 10:23 98 Room Air 07/20/17 08:50 97.5 87 16 144/69 (94) Orders Orders Complete Blood Count With Diff (07/20/17 10:06) Comprehensive Metabolic Panel (07/20/17 10:06) Lipase (07/20/17 10:06) Lactic Acid (07/20/17 10:06) Iv Access Insert/Monitor (07/20/17 10:06) Ecg Monitoring (07/20/17 10:06) Oximetry (07/20/17 10:06) Morphine Inj (Morphine Inj) (07/20/17 10:15) Ondansetron Inj (Zofran Inj) (07/20/17 10:15) Sodium Chloride 0.9% Flush (Ns Flush) (07/20/17 10:15) Abdomen, Upright Only (07/20/17 10:06) Sodium Chlorid 0.9% 500 Ml Inj (Ns 500 M (07/20/17 10:15) Labs Laboratory Tests Test 07/20/17 11:05 White Blood Count 5.0 TH/MM3 Red Blood Count 3.97 MIL/MM3 Hemoglobin 10.0 GM/DL Hematocrit 31.9 % Mean Corpuscular Volume 80.2 FL Mean Corpuscular Hemoglobin 25.1 PG Mean Corpuscular Hemoglobin Concent 31.3 % Red Cell Distribution Width 29.0 % Platelet Count 250 TH/MM3 Mean Platelet Volume 9.0 FL Neutrophils (%) (Auto) 61.8 % Lymphocytes (%) (Auto) 25.6 % Monocytes (%) (Auto) 8.8 % Eosinophils (%) (Auto) 3.3 % Basophils (%) (Auto) 0.5 % Neutrophils # (Auto) 3.1 TH/MM3 Lymphocytes # (Auto) 1.3 TH/MM3 Monocytes # (Auto) 0.4 TH/MM3 Eosinophils # (Auto) 0.2 TH/MM3 Basophils # (Auto) 0.0 TH/MM3 CBC Comment AUTO DIFF Differential Comment AUTO DIFF CONFIRMED Blood Urea Nitrogen 16 MG/DL Creatinine 0.80 MG/DL Random Glucose 78 MG/DL Total Protein 6.8 GM/DL Albumin 2.8 GM/DL Calcium Level 9.1 MG/DL Alkaline Phosphatase 117 U/L Aspartate Amino Transf (AST/SGOT) 41 U/L Alanine Aminotransferase (ALT/SGPT) 36 U/L Total Bilirubin 0.5 MG/DL Sodium Level 141 MEQ/L Potassium Level 3.8 MEQ/L Chloride Level 106 MEQ/L Carbon Dioxide Level 26.5 MEQ/L Anion Gap 9 MEQ/L Estimat Glomerular Filtration Rate 72 ML/MIN Lactic Acid Level 0.6 mmol/L Lipase 140 U/L MDM Medical Decision Making Medical Screen Exam Complete: Yes Emergency Medical Condition: Yes Medical Record Reviewed: Yes Interpretation(s) Laboratory Tests Test 07/20/17 11:05 White Blood Count 5.0 TH/MM3 Red Blood Count 3.97 MIL/MM3 Hemoglobin 10.0 GM/DL Hematocrit 31.9 % Mean Corpuscular Volume 80.2 FL Mean Corpuscular Hemoglobin 25.1 PG Mean Corpuscular Hemoglobin Concent 31.3 % Red Cell Distribution Width 29.0 % Platelet Count 250 TH/MM3 Mean Platelet Volume 9.0 FL Neutrophils (%) (Auto) 61.8 % Lymphocytes (%) (Auto) 25.6 % Monocytes (%) (Auto) 8.8 % Eosinophils (%) (Auto) 3.3 % Basophils (%) (Auto) 0.5 % Neutrophils # (Auto) 3.1 TH/MM3 Lymphocytes # (Auto) 1.3 TH/MM3 Monocytes # (Auto) 0.4 TH/MM3 Eosinophils # (Auto) 0.2 TH/MM3 Basophils # (Auto) 0.0 TH/MM3 CBC Comment AUTO DIFF Differential Comment AUTO DIFF CONFIRMED Blood Urea Nitrogen 16 MG/DL Creatinine 0.80 MG/DL Random Glucose 78 MG/DL Total Protein 6.8 GM/DL Albumin 2.8 GM/DL Calcium Level 9.1 MG/DL Alkaline Phosphatase 117 U/L Aspartate Amino Transf (AST/SGOT) 41 U/L Alanine Aminotransferase (ALT/SGPT) 36 U/L Total Bilirubin 0.5 MG/DL Sodium Level 141 MEQ/L Potassium Level 3.8 MEQ/L Chloride Level 106 MEQ/L Carbon Dioxide Level 26.5 MEQ/L Anion Gap 9 MEQ/L Estimat Glomerular Filtration Rate 72 ML/MIN Lactic Acid Level 0.6 mmol/L Lipase 140 U/L Differential Diagnosis Differential diagnosis includes colitis, diverticulosis, internal hemorrhoids, IBS, IBD, duodenal ulcer, upper GI bleed, partial small bowel obstruction, ileus. Narrative Course IV was established, labs are drawn and sent, and the patient was placed on cardiac telemetry monitoring and continuous pulse oximetry monitoring. Rectal exam was performed, no gross blood, was guaiac negative. I reviewed the patient 's EMR, she was admitted in the hospital at the beginning of month on July [address] the abdomen and pelvis at that time which revealed slight: Distention but was otherwise unremarkable. The patient did have anemia at that time and was transfused. The patient had an endoscopy and colonoscopy performed by Dr. Sanchez, which revealed a duodenal ulcer. Colonoscopy was unremarkable. The patient was subsequent discharged home and advised to follow- up as an outpatient. The patient's CT of the abdomen and pelvis was performed last night, there was no significant changes from the CT performed at the beginning of the month. I did review the patient's stool studies from her hospitalization, C. difficile was negative, although and parasites was negative , Giardia was negative, and enteric pathogens and stool were negative. The patient appears to have chronic diarrhea with intermittent episodes of hematochezia, therefore, repeat CBC was performed. The patient was administered morphine, Zofran, and a bolus of IV fluids. The patient's abdomen was slightly tympanic and distended inferiorly, although the CT last night was negative, upright abdominal x-ray was ordered to evaluate for air-fluid levels. The patient's hemoglobin was 10, last hemoglobin was 10.7 and the previous one was 11.0. BUN and creatinine are normal. Lactic acid is unremarkable. The patient's hemoglobin is not significantly changed. She is stable for outpatient follow-up with her library assistant. [facility] Point of Care Internal Pos. & Neg. Controls: Passed Fecal Specimen Occult Blood: Negative Diagnosis Primary Impression: Diarrhea Qualified Codes: R19.7 - Diarrhea, unspecified Patient Instructions: General Instructions Additional Instructions: follow-up with your primary physician and library assistant. Please provide the patient a copy of her lab results at discharge. Return if symptoms worsen or progress. Continue Bentyl and Lomotil as previously directed. Med/Other Pt SpecificInfo: No Change to Meds Disposition: 01 DISCHARGE HOME Condition: Stable Michael Harris MD Jul 20, 2017 10:12
[2017-07-20] MEDS ORDERED: SODIUM CHLORID 0.9% 500 ML INJ 500 ML IV ONE (10:15)
[2017-07-20] MEDS ORDERED: ONDANSETRON HCL 4 MG/2 ML VIAL IVP ONE (10:15)
[2017-07-20] MEDS ORDERED: SODIUM CHLORIDE 0.9% FLUSH 10 ML FLUSH IV FLUSH PRN (10:15)
[2017-07-20] MEDS ORDERED: MORPHINE SULFATE 4 MG/ML INJ IV PUSH ONE (10:15)
[2017-07-20 10:23] VITALS: O2SAT 98
--- NOTE | 2017-07-20 10:40 | RADRPT ---
EXAM DATE/TIME: 07/20/2017 10:22 [facility] COMPARISON: CT ABDOMEN & PELVIS W CONTRAST, July 19, 2017, 22:23. INDICATIONS : Abdominal pain for 1 month. MEDICAL HISTORY : bleeding ulcers SURGICAL HISTORY : None. ENCOUNTER: Initial ACUITY: 1 month PAIN SCORE: 7/10 LOCATION: Left lower quadrant FINDINGS: Single upright view of the abdomen. Multiple air-fluid levels throughout the colon which is not diste nded. Several small air-fluid levels in nondistended loops of small bowel in the left upper quadrant. No pneumatosis or free air. Air is noted throughout the common bile duct and central intrahepatic du cts similar to prior CT exam. The contrast is seen in the bladder. Remainder of the exam is unchanged . CONCLUSION: 1. Fluid noted throughout the colon similar to prior CT examination. No significant radiographic evid ence for colonic wall thickening, infarction, or perforation. 2. Nonspecific air-fluid levels in nondistended small bowel in the left upper quadrant. 3. Pneumobilia. Ray Lake MD on July 20, 2017 at 10:35 Board Certified Radiologist. This report was verified electronically.
[2017-07-20 11:13] LABS: AUTOMATED NEUTROPHIL # 3.1 TH/MM3 (1.8-7.7); BASOPHIL % 0.5 % (0.0-2.0); EOSINOPHIL # 0.2 TH/MM3 (0-0.4); EOSINOPHIL % 3.3 % (0.0-4.0); HEMATOCRIT 31.9 % (35.0-46.0); LYMPH % 25.6 % (9.0-44.0); LYMPHOCYTE # 1.3 TH/MM3 (1.0-4.8); MEAN CELL VOLUME 80.2 FL (80.0-100.0); MEAN CORPUSCULAR HEMOGLOBIN 25.1 PG (27.0-34.0); MEAN CORPUSCULAR HGB CONC 31.3 % (32.0-36.0); MONO % 8.8 % (0.0-8.0); NEUT % 61.8 % (16.0-70.0); PLATELET COUNT 250 TH/MM3 (150-450); RED BLOOD COUNT 3.97 MIL/MM3 (4.00-5.30)
[2017-07-20 11:17] LABS: HEMO FLAGS AUTO DIFF
[2017-07-20 11:22] LABS: CHLORIDE 106 MEQ/L (98-107); POTASSIUM 3.8 MEQ/L (3.5-5.1); SODIUM (NA) 141 MEQ/L (136-145)
[2017-07-20 11:26] LABS: ANION GAP 9 MEQ/L (5-15); BICARBONATE 26.5 MEQ/L (21.0-32.0)
[2017-07-20 11:27] LABS: BLOOD UREA NITROGEN 16 MG/DL (7-18)
[2017-07-20 11:29] LABS: ALT (GPT) 36 U/L (10-53); AST (GOT) 41 U/L (15-37); GLOMERULAR FILTRATION RATE 72 ML/MIN (>89)
[2017-07-20 11:31] LABS: TOTAL BILIRUBIN ADULT 0.5 MG/DL (0.2-1.0)
[2017-07-20 11:32] LABS: ALKALINE PHOSPHATASE 117 U/L (45-117)
[2017-07-20 11:38] LABS: SCAN/DIFF AUTO DIFF CONFIRMED
[2017-07-20 12:00] VITALS: BP 150/62; PULSE 86; RESP 16; O2SAT 97
[2017-07-20] MEDS ORDERED: MORPHINE SULFATE 2 MG/ML INJ IV PUSH ONE (12:00)
[2017-07-20 12:23] VITALS: BP 142/56; PULSE 75; RESP 16; O2SAT 97
== END 2017-07-20 12:44 | disposition home or self-care (01) ==
LOC: PHED 08:47
DX: R19.7 Diarrhea, unspecified (principal); R10.30 Lower abdominal pain, unspecified
CPT/HCPCS: 74000; 80053; 83605; 83690; 85025; 96361; 96374; 96375; 96376; 99284; J2270; J2405; J7040

== ENCOUNTER 2017-07-21 11:39 | Emergency (ER) | payer MEDICAID ==
[~2017-07-21] VITALS: Ht 170.2 cm; Wt 49.0 kg
[2017-07-21 11:50] VITALS: BP 140/66; PULSE 81; RESP 16; TEMP 97.3; O2SAT 98
[2017-07-21] MEDS ORDERED: SODIUM CHLOR 0.9% 1000 ML INJ 1,000 ML IV SCH (12:12)
[2017-07-21 12:14] VITALS: O2SAT 100
[2017-07-21] MEDS ORDERED: ONDANSETRON HCL 4 MG/2 ML VIAL IVP ONE (12:15)
[2017-07-21] MEDS ORDERED: SODIUM CHLORIDE 0.9% FLUSH 10 ML FLUSH IV FLUSH PRN (12:15)
[2017-07-21] MEDS ORDERED: MORPHINE SULFATE 4 MG/ML INJ IV PUSH ONE (12:15)
--- NOTE | 2017-07-21 12:24 | PD ---
HPI Chief Complaint: Altered Mental Status Time Seen by Provider: 12:02 Travel History International Travel<30 days: No Contact w/Intl Traveler<30days: No Traveled to known affect area: No History of Present Illness HPI The patient is a 66-year-old female who presents to the emergency department for continuing diarrhea. The patient is a 1 month history of diarrhea and was admitted to the hospital one month ago. The patient had an extensive workup including endoscopy, colonoscopy, and stool studies which revealed a duodenal ulcer but were otherwise unremarkable. The patient was transfused for anemia during her hospitalization with subsequent discharged home. The patient is advised to follow-up with her resolution expert, she called 2 weeks later, however, has been unable to see her resolution expert secondary to insurance related issues. The patient is staying with family members who state they are unable to take care of the patient because of her diarrhea. The patient states the diarrhea is intermittent, occasionally dark, occasionally has bright colored blood. The patient was evaluated in the emergency department yesterday where she had a rectal exam which was unremarkable and was guaiac negative. Her hemoglobin was stable in the 10 range at that time the patient was discharged home. However, family members note the patient continues have diarrhea. Their primary physician, Dr. Gtz , is currently working on getting the patient placed. The patient denies any fever, chills, or sweats. She does complain of intermittent abdominal pain and distention with her diarrhea which is been chronic for one month. She denies any acute chest pain or shortness of breath. PFSH Past Medical History Hx Anticoagulant Therapy: No Arthritis: Yes Asthma: No Autoimmune Disease: No (denied) Anxiety: No (denied) Depression: No (denied) Heart Rhythm Problems: No Cancer: No (denied) Cardiovascular Problems: Yes (PHLEBITIS) High Cholesterol: No Chest Pain: Yes Congestive Heart Failure: No COPD: No Cerebrovascular Accident: No Diabetes: No Diminished Hearing: No Endocrine: No (denied) Gastrointestinal Disorders: Yes GERD: No (denied) Headaches: No Hiatal Hernia: No Hypertension: No Immune Disorder: No Implanted Vascular Access Dvce: No (UNKNOWN) Kidney Stones: Yes Musculoskeletal: Yes Neurologic: No Psychiatric: No (denied) Reproductive: No (denied) Respiratory: No Immunizations Current: No Migraines: Yes (as a child ) Radiation Therapy: No (denied) Renal Failure: No (denied) Seizures: No Sickle Cell Disease: No (denied) Sleep Apnea: No Ulcer: Yes (states hx of bleeding ulcers) Tetanus Vaccination: > 5 Years Influenza Vaccination: No ?: Not Menopausal: Yes : 0 Past Surgical History Abdominal Surgery: No AICD: No (denied) Appendectomy: Yes Arteriovenous Shunt: No (denied) Cardiac Surgery: No Ear Surgery: No Endocrine Surgery: No Eye Surgery: No Genitourinary Surgery: No Gynecologic Surgery: No Insulin Pump: No (denied) Neurologic Surgery: Yes (CYST REMOVED FROM SPINE) Oral Surgery: No Pacemaker: No (denied) Thoracic Surgery: No Tonsillectomy: Yes Other Surgery: Yes Social History Alcohol Use: No Tobacco Use: No (QUIT 2009) Substance Use: No Allergies-Medications (Allergen,Severity, Reaction): Coded Allergies: *MDRO Multi-Drug Resistant Organism (Verified Adverse Reaction, Unknown, 07/21/17) 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 Reported Meds & Prescriptions Reported Meds & Active Scripts Active Lomotil (Diphenoxylate-Atropine) 2.5-0.025 Mg Tab 1 Tab PO Q6H PRN Bentyl (Dicyclomine HCl) 10 Mg Cap 10 Mg PO TID PRN Potassium Chloride ER (Potassium Chloride) 20 Meq Tab 20 Meq PO DAILY Pantoprazole (Pantoprazole Sodium) 40 Mg Tab 40 Mg PO Q12HR Hm Loperamide HCl (Loperamide HCl) 2 Mg Cap 2 Mg PO Q4H PRN Review of Systems Except as stated in HPI: all other systems reviewed are Neg General / Constitutional: No: Fever Cardiovascular: No: Chest Pain or Discomfort Respiratory: No: Shortness of Breath Gastrointestinal: Positive: Diarrhea, Abdominal Pain, No: Nausea, Vomiting Genitourinary: No: Dysuria Musculoskeletal: No: Weakness Neurologic: No: Change in Mentation Physical Exam Narrative GENERAL: Awake, alert, pleasant 66-year-old female who appears her stated age and is in no acute respiratory distress. SKIN: Focused skin assessment warm/dry. HEAD: Atraumatic. Normocephalic. EYES: Pupils equal and round. No scleral icterus. No injection or drainage. ENT: No nasal bleeding or discharge. Mucous membranes pink and moist. NECK: Trachea midline. No JVD. CARDIOVASCULAR: Regular rate and rhythm. No murmur appreciated. Heart rate in the 70s. RESPIRATORY: No accessory muscle use. Clear to auscultation. Breath sounds equal bilaterally. GASTROINTESTINAL: Abdomen soft, mild distention and tympany. Well-healed scar right lower quadrant. No guarding or rigidity. MUSCULOSKELETAL: No obvious deformities. No clubbing. No cyanosis. No edema. NEUROLOGICAL: Awake and alert. No obvious cranial nerve deficits. Motor grossly within normal limits. Normal speech. The patient is oriented to person , place, month, year, and secondary school registrar. Nonfocal on exam. PSYCHIATRIC: Appropriate mood and affect; insight and judgment normal. Data Data Last Documented VS Vital Signs Date Time Temp Pulse Resp B/P (MAP) Pulse Ox O2 Delivery O2 Flow Rate FiO2 07/21/17 13:16 80 16 147/74 (98) 98 Room Air 07/21/17 11:50 97.3 Orders Orders Complete Blood Count With Diff (07/21/17 12:12) Comprehensive Metabolic Panel (07/21/17 12:12) Lipase (07/21/17 12:12) Lactic Acid (07/21/17 12:12) Abdomen, Flat & Upright (07/21/17 ) Iv Access Insert/Monitor (07/21/17 12:12) Ecg Monitoring (07/21/17 12:12) Oximetry (07/21/17 12:12) Morphine Inj (Morphine Inj) (07/21/17 12:15) Ondansetron Inj (Zofran Inj) (07/21/17 12:15) Sodium Chlor 0.9% 1000 Ml Inj (Ns 1000 M (07/21/17 12:12) Sodium Chloride 0.9% Flush (Ns Flush) (07/21/17 12:15) Ct Abd/Pel W/O Iv Contrast (07/21/17 ) Labs Laboratory Tests Test 07/21/17 13:15 White Blood Count 4.6 TH/MM3 Red Blood Count 4.10 MIL/MM3 Hemoglobin 10.8 GM/DL Hematocrit 33.2 % Mean Corpuscular Volume 81.0 FL Mean Corpuscular Hemoglobin 26.2 PG Mean Corpuscular Hemoglobin Concent 32.4 % Red Cell Distribution Width 28.9 % Platelet Count 261 TH/MM3 Mean Platelet Volume 9.0 FL Neutrophils (%) (Auto) 64.6 % Lymphocytes (%) (Auto) 20.5 % Monocytes (%) (Auto) 9.0 % Eosinophils (%) (Auto) 5.1 % Basophils (%) (Auto) 0.8 % Neutrophils # (Auto) 3.1 TH/MM3 Lymphocytes # (Auto) 0.9 TH/MM3 Monocytes # (Auto) 0.4 TH/MM3 Eosinophils # (Auto) 0.2 TH/MM3 Basophils # (Auto) 0.0 TH/MM3 CBC Comment AUTO DIFF Differential Comment AUTO DIFF CONFIRMED Blood Urea Nitrogen 12 MG/DL Creatinine 0.80 MG/DL Random Glucose 76 MG/DL Total Protein 7.3 GM/DL Albumin 2.9 GM/DL Calcium Level 9.3 MG/DL Alkaline Phosphatase 116 U/L Aspartate Amino Transf (AST/SGOT) 73 U/L Alanine Aminotransferase (ALT/SGPT) 45 U/L Total Bilirubin 0.6 MG/DL Sodium Level 139 MEQ/L Potassium Level 4.7 MEQ/L Chloride Level 106 MEQ/L Carbon Dioxide Level 25.7 MEQ/L Anion Gap 7 MEQ/L Estimat Glomerular Filtration Rate 72 ML/MIN Lactic Acid Level 0.9 mmol/L Lipase 520 U/L [facility] Medical Decision Making Medical Screen Exam Complete: Yes Emergency Medical Condition: Yes Medical Record Reviewed: Yes Interpretation(s) Last Impressions Abdomen/Pelvis CT 07/21/17 0000 Signed Impressions: Service Date/Time: Friday, July 21, 2017 13:33 - CONCLUSION: 1. No acute abnormality. 2. Pneumobilia without biliary dilatation suggesting prior sphincterotomy. This is stable. 3. Bilateral nonobstructing renal calculi. Choco Oliveira Jr., MD Abdomen X-Ray 07/21/17 0000 Signed Impressions: Service Date/Time: Friday, July 21, 2017 12:23 - CONCLUSION: 1. Mild ileus. Bilateral renal calculi. Pneumobilia. Holland Kee MD Laboratory Tests Test 07/21/17 13:15 White Blood Count 4.6 TH/MM3 Red Blood Count 4.10 MIL/MM3 Hemoglobin 10.8 GM/DL Hematocrit 33.2 % Mean Corpuscular Volume 81.0 FL Mean Corpuscular Hemoglobin 26.2 PG Mean Corpuscular Hemoglobin Concent 32.4 % Red Cell Distribution Width 28.9 % Platelet Count 261 TH/MM3 Mean Platelet Volume 9.0 FL Neutrophils (%) (Auto) 64.6 % Lymphocytes (%) (Auto) 20.5 % Monocytes (%) (Auto) 9.0 % Eosinophils (%) (Auto) 5.1 % Basophils (%) (Auto) 0.8 % Neutrophils # (Auto) 3.1 TH/MM3 Lymphocytes # (Auto) 0.9 TH/MM3 Monocytes # (Auto) 0.4 TH/MM3 Eosinophils # (Auto) 0.2 TH/MM3 Basophils # (Auto) 0.0 TH/MM3 CBC Comment AUTO DIFF Differential Comment AUTO DIFF CONFIRMED Blood Urea Nitrogen 12 MG/DL Creatinine 0.80 MG/DL Random Glucose 76 MG/DL Total Protein 7.3 GM/DL Albumin 2.9 GM/DL Calcium Level 9.3 MG/DL Alkaline Phosphatase 116 U/L Aspartate Amino Transf (AST/SGOT) 73 U/L Alanine Aminotransferase (ALT/SGPT) 45 U/L Total Bilirubin 0.6 MG/DL Sodium Level 139 MEQ/L Potassium Level 4.7 MEQ/L Chloride Level 106 MEQ/L Carbon Dioxide Level 25.7 MEQ/L Anion Gap 7 MEQ/L Estimat Glomerular Filtration Rate 72 ML/MIN Lactic Acid Level 0.9 mmol/L Lipase 520 U/L Differential Diagnosis Differential diagnosis includes chronic diarrhea, C. difficile, symptomatic anemia, inability to care for self, hyponatremia, inflammatory diarrhea, IBD, IBS. Narrative Course IV was established, labs are drawn and sent, and the patient was placed on cardiac telemetry monitoring and continuous pulse oximetry monitoring. I reviewed the patient's previous hospitalizations including acute CTs of the abdomen and pelvis. Revealed a distended colon but no acute changes. The patient had an upright x-ray yesterday which revealed a distended colon but no acute changes. I do discussion with the [id number] who wants the patient placed regarding the strict admission criteria for placement later. I advised him that if the patient did not meet criteria they were more than welcome to suture the heel caser once again for placement or go through their primary physician is currently working on placement. Flat and upright x-ray was ordered. The patient was administered IV fluids, morphine, and Zofran. The flat and upright x-ray reveals questionable mild ileus. Therefore, CT the abdomen and pelvis was performed, there is no evidence of ileus, there appears to be improvement when compared to previous CT. The patient's lipase level was 520, however, no evidence of pancreatitis on CT. Her symptoms are chronic diarrhea, she is stable for outpatient follow-up. Diagnosis Primary Impression: Diarrhea Qualified Codes: R19.7 - Diarrhea, unspecified Additional Impression: Anemia Qualified Codes: D64.9 - Anemia, unspecified Patient Instructions: General Instructions Additional Instructions: please provide the patient a copy of her CT results and lab results at discharge. Follow-up with her primary physician. Follow-up with your resolution expert as previously directed. Follow-up with your primary physician for placement. Disposition: 01 DISCHARGE HOME Condition: Stable Michael Harris MD Jul 21, 2017 12:23
--- NOTE | 2017-07-21 12:24 | PD ---
HPI Chief Complaint: Altered Mental Status Time Seen by Provider: 12:02 Travel History International Travel<30 days: No Contact w/Intl Traveler<30days: No Traveled to known affect area: No History of Present Illness HPI The patient is a 66-year-old female who presents to the emergency department for continuing diarrhea. The patient is a 1 month history of diarrhea and was admitted to the hospital one month ago. The patient had an extensive workup including endoscopy, colonoscopy, and stool studies which revealed a duodenal ulcer but were otherwise unremarkable. The patient was transfused for anemia during her hospitalization with subsequent discharged home. The patient is advised to follow-up with her motor home electrical foreman, she called 2 weeks later, however, has been unable to see her motor home electrical foreman secondary to insurance related issues. The patient is staying with family members who state they are unable to take care of the patient because of her diarrhea. The patient states the diarrhea is intermittent, occasionally dark, occasionally has bright colored blood. The patient was evaluated in the emergency department yesterday where she had a rectal exam which was unremarkable and was guaiac negative. Her hemoglobin was stable in the 10 range at that time the patient was discharged home. However, family members note the patient continues have diarrhea. Their primary physician, Dr. Gtz , is currently working on getting the patient placed. The patient denies any fever, chills, or sweats. She does complain of intermittent abdominal pain and distention with her diarrhea which is been chronic for one month. She denies any acute chest pain or shortness of breath. PFSH Past Medical History Hx Anticoagulant Therapy: No Arthritis: Yes Asthma: No Autoimmune Disease: No (denied) Anxiety: No (denied) Depression: No (denied) Heart Rhythm Problems: No Cancer: No (denied) Cardiovascular Problems: Yes (PHLEBITIS) High Cholesterol: No Chest Pain: Yes Congestive Heart Failure: No COPD: No Cerebrovascular Accident: No Diabetes: No Diminished Hearing: No Endocrine: No (denied) Gastrointestinal Disorders: Yes GERD: No (denied) Headaches: No Hiatal Hernia: No Hypertension: No Immune Disorder: No Implanted Vascular Access Dvce: No (UNKNOWN) Kidney Stones: Yes Musculoskeletal: Yes Neurologic: No Psychiatric: No (denied) Reproductive: No (denied) Respiratory: No Immunizations Current: No Migraines: Yes (as a child ) Radiation Therapy: No (denied) Renal Failure: No (denied) Seizures: No Sickle Cell Disease: No (denied) Sleep Apnea: No Ulcer: Yes (states hx of bleeding ulcers) Tetanus Vaccination: > 5 Years Influenza Vaccination: No ?: Not Menopausal: Yes : 0 Past Surgical History Abdominal Surgery: No AICD: No (denied) Appendectomy: Yes Arteriovenous Shunt: No (denied) Cardiac Surgery: No Ear Surgery: No Endocrine Surgery: No Eye Surgery: No Genitourinary Surgery: No Gynecologic Surgery: No Insulin Pump: No (denied) Neurologic Surgery: Yes (CYST REMOVED FROM SPINE) Oral Surgery: No Pacemaker: No (denied) Thoracic Surgery: No Tonsillectomy: Yes Other Surgery: Yes Social History Alcohol Use: No Tobacco Use: No (QUIT 2009) Substance Use: No Allergies-Medications (Allergen,Severity, Reaction): Coded Allergies: *MDRO Multi-Drug Resistant Organism (Verified Adverse Reaction, Unknown, 07/21/17) 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 Reported Meds & Prescriptions Reported Meds & Active Scripts Active Lomotil (Diphenoxylate-Atropine) 2.5-0.025 Mg Tab 1 Tab PO Q6H PRN Bentyl (Dicyclomine HCl) 10 Mg Cap 10 Mg PO TID PRN Potassium Chloride ER (Potassium Chloride) 20 Meq Tab 20 Meq PO DAILY Pantoprazole (Pantoprazole Sodium) 40 Mg Tab 40 Mg PO Q12HR Hm Loperamide HCl (Loperamide HCl) 2 Mg Cap 2 Mg PO Q4H PRN Review of Systems Except as stated in HPI: all other systems reviewed are Neg General / Constitutional: No: Fever Cardiovascular: No: Chest Pain or Discomfort Respiratory: No: Shortness of Breath Gastrointestinal: Positive: Diarrhea, Abdominal Pain, No: Nausea, Vomiting Genitourinary: No: Dysuria Musculoskeletal: No: Weakness Neurologic: No: Change in Mentation Physical Exam Narrative GENERAL: Awake, alert, pleasant 66-year-old female who appears her stated age and is in no acute respiratory distress. SKIN: Focused skin assessment warm/dry. HEAD: Atraumatic. Normocephalic. EYES: Pupils equal and round. No scleral icterus. No injection or drainage. ENT: No nasal bleeding or discharge. Mucous membranes pink and moist. NECK: Trachea midline. No JVD. CARDIOVASCULAR: Regular rate and rhythm. No murmur appreciated. Heart rate in the 70s. RESPIRATORY: No accessory muscle use. Clear to auscultation. Breath sounds equal bilaterally. GASTROINTESTINAL: Abdomen soft, mild distention and tympany. Well-healed scar right lower quadrant. No guarding or rigidity. MUSCULOSKELETAL: No obvious deformities. No clubbing. No cyanosis. No edema. NEUROLOGICAL: Awake and alert. No obvious cranial nerve deficits. Motor grossly within normal limits. Normal speech. The patient is oriented to person , place, month, year, and fiction and nonfiction writer prose. Nonfocal on exam. PSYCHIATRIC: Appropriate mood and affect; insight and judgment normal. Data Data Last Documented VS Vital Signs Date Time Temp Pulse Resp B/P (MAP) Pulse Ox O2 Delivery O2 Flow Rate FiO2 07/21/17 13:16 80 16 147/74 (98) 98 Room Air 07/21/17 11:50 97.3 Orders Orders Complete Blood Count With Diff (07/21/17 12:12) Comprehensive Metabolic Panel (07/21/17 12:12) Lipase (07/21/17 12:12) Lactic Acid (07/21/17 12:12) Abdomen, Flat & Upright (07/21/17 ) Iv Access Insert/Monitor (07/21/17 12:12) Ecg Monitoring (07/21/17 12:12) Oximetry (07/21/17 12:12) Morphine Inj (Morphine Inj) (07/21/17 12:15) Ondansetron Inj (Zofran Inj) (07/21/17 12:15) Sodium Chlor 0.9% 1000 Ml Inj (Ns 1000 M (07/21/17 12:12) Sodium Chloride 0.9% Flush (Ns Flush) (07/21/17 12:15) Ct Abd/Pel W/O Iv Contrast (07/21/17 ) Labs Laboratory Tests Test 07/21/17 13:15 White Blood Count 4.6 TH/MM3 Red Blood Count 4.10 MIL/MM3 Hemoglobin 10.8 GM/DL Hematocrit 33.2 % Mean Corpuscular Volume 81.0 FL Mean Corpuscular Hemoglobin 26.2 PG Mean Corpuscular Hemoglobin Concent 32.4 % Red Cell Distribution Width 28.9 % Platelet Count 261 TH/MM3 Mean Platelet Volume 9.0 FL Neutrophils (%) (Auto) 64.6 % Lymphocytes (%) (Auto) 20.5 % Monocytes (%) (Auto) 9.0 % Eosinophils (%) (Auto) 5.1 % Basophils (%) (Auto) 0.8 % Neutrophils # (Auto) 3.1 TH/MM3 Lymphocytes # (Auto) 0.9 TH/MM3 Monocytes # (Auto) 0.4 TH/MM3 Eosinophils # (Auto) 0.2 TH/MM3 Basophils # (Auto) 0.0 TH/MM3 CBC Comment AUTO DIFF Differential Comment AUTO DIFF CONFIRMED Blood Urea Nitrogen 12 MG/DL Creatinine 0.80 MG/DL Random Glucose 76 MG/DL Total Protein 7.3 GM/DL Albumin 2.9 GM/DL Calcium Level 9.3 MG/DL Alkaline Phosphatase 116 U/L Aspartate Amino Transf (AST/SGOT) 73 U/L Alanine Aminotransferase (ALT/SGPT) 45 U/L Total Bilirubin 0.6 MG/DL Sodium Level 139 MEQ/L Potassium Level 4.7 MEQ/L Chloride Level 106 MEQ/L Carbon Dioxide Level 25.7 MEQ/L Anion Gap 7 MEQ/L Estimat Glomerular Filtration Rate 72 ML/MIN Lactic Acid Level 0.9 mmol/L Lipase 520 U/L [facility] Medical Decision Making Medical Screen Exam Complete: Yes Emergency Medical Condition: Yes Medical Record Reviewed: Yes Interpretation(s) Last Impressions Abdomen/Pelvis CT 07/21/17 0000 Signed Impressions: Service Date/Time: Friday, July 21, 2017 13:33 - CONCLUSION: 1. No acute abnormality. 2. Pneumobilia without biliary dilatation suggesting prior sphincterotomy. This is stable. 3. Bilateral nonobstructing renal calculi. Choco Oliveira Jr., MD Abdomen X-Ray 07/21/17 0000 Signed Impressions: Service Date/Time: Friday, July 21, 2017 12:23 - CONCLUSION: 1. Mild ileus. Bilateral renal calculi. Pneumobilia. Holland Kee MD Laboratory Tests Test 07/21/17 13:15 White Blood Count 4.6 TH/MM3 Red Blood Count 4.10 MIL/MM3 Hemoglobin 10.8 GM/DL Hematocrit 33.2 % Mean Corpuscular Volume 81.0 FL Mean Corpuscular Hemoglobin 26.2 PG Mean Corpuscular Hemoglobin Concent 32.4 % Red Cell Distribution Width 28.9 % Platelet Count 261 TH/MM3 Mean Platelet Volume 9.0 FL Neutrophils (%) (Auto) 64.6 % Lymphocytes (%) (Auto) 20.5 % Monocytes (%) (Auto) 9.0 % Eosinophils (%) (Auto) 5.1 % Basophils (%) (Auto) 0.8 % Neutrophils # (Auto) 3.1 TH/MM3 Lymphocytes # (Auto) 0.9 TH/MM3 Monocytes # (Auto) 0.4 TH/MM3 Eosinophils # (Auto) 0.2 TH/MM3 Basophils # (Auto) 0.0 TH/MM3 CBC Comment AUTO DIFF Differential Comment AUTO DIFF CONFIRMED Blood Urea Nitrogen 12 MG/DL Creatinine 0.80 MG/DL Random Glucose 76 MG/DL Total Protein 7.3 GM/DL Albumin 2.9 GM/DL Calcium Level 9.3 MG/DL Alkaline Phosphatase 116 U/L Aspartate Amino Transf (AST/SGOT) 73 U/L Alanine Aminotransferase (ALT/SGPT) 45 U/L Total Bilirubin 0.6 MG/DL Sodium Level 139 MEQ/L Potassium Level 4.7 MEQ/L Chloride Level 106 MEQ/L Carbon Dioxide Level 25.7 MEQ/L Anion Gap 7 MEQ/L Estimat Glomerular Filtration Rate 72 ML/MIN Lactic Acid Level 0.9 mmol/L Lipase 520 U/L Differential Diagnosis Differential diagnosis includes chronic diarrhea, C. difficile, symptomatic anemia, inability to care for self, hyponatremia, inflammatory diarrhea, IBD, IBS. Narrative Course IV was established, labs are drawn and sent, and the patient was placed on cardiac telemetry monitoring and continuous pulse oximetry monitoring. I reviewed the patient's previous hospitalizations including acute CTs of the abdomen and pelvis. Revealed a distended colon but no acute changes. The patient had an upright x-ray yesterday which revealed a distended colon but no acute changes. I do discussion with the [id number] who wants the patient placed regarding the strict admission criteria for placement later. I advised him that if the patient did not meet criteria they were more than welcome to suture the clinical case manager once again for placement or go through their primary physician is currently working on placement. Flat and upright x-ray was ordered. The patient was administered IV fluids, morphine, and Zofran. The flat and upright x-ray reveals questionable mild ileus. Therefore, CT the abdomen and pelvis was performed, there is no evidence of ileus, there appears to be improvement when compared to previous CT. The patient's lipase level was 520, however, no evidence of pancreatitis on CT. Her symptoms are chronic diarrhea, she is stable for outpatient follow-up. Diagnosis Primary Impression: Diarrhea Qualified Codes: R19.7 - Diarrhea, unspecified Additional Impression: Anemia Qualified Codes: D64.9 - Anemia, unspecified Patient Instructions: General Instructions Additional Instructions: please provide the patient a copy of her CT results and lab results at discharge. Follow-up with her primary physician. Follow-up with your motor home electrical foreman as previously directed. Follow-up with your primary physician for placement. Disposition: 01 DISCHARGE HOME Condition: Stable Michael Harris MD Jul 21, 2017 12:23
--- NOTE | 2017-07-21 12:56 | RADRPT ---
EXAM DATE/TIME: 07/21/2017 12:23 [place] COMPARISON: No previous studies available for comparison. INDICATIONS : Rectal bleeding. MEDICAL HISTORY : Ulcer SURGICAL HISTORY : None. ENCOUNTER: Subsequent ACUITY: 1 month PAIN SCORE: 9/10 LOCATION: abdomen FINDINGS: Supine and upright views of the abdomen were performed. There is a mild ileus. No obstruction or free air. Advanced degenerative changes in the spine. Bilateral renal calculi noted. There is air in the biliary ductal system. This was noted on recent CT. CONCLUSION: 1. Mild ileus. Bilateral renal calculi. Pneumobilia. Holland Kee MD on July 21, 2017 at 12:53 Board Certified Radiologist. This report was verified electronically.
[2017-07-21 13:16] VITALS: BP 147/74; PULSE 80; RESP 16; O2SAT 98
[2017-07-21 13:23] LABS: AUTOMATED NEUTROPHIL # 3.1 TH/MM3 (1.8-7.7); BASOPHIL % 0.8 % (0.0-2.0); EOSINOPHIL # 0.2 TH/MM3 (0-0.4); EOSINOPHIL % 5.1 % (0.0-4.0); HEMATOCRIT 33.2 % (35.0-46.0); HEMOGLOBIN 10.8 GM/DL (11.6-15.3); LYMPH % 20.5 % (9.0-44.0); LYMPHOCYTE # 0.9 TH/MM3 (1.0-4.8); MEAN CORPUSCULAR HEMOGLOBIN 26.2 PG (27.0-34.0); MEAN CORPUSCULAR HGB CONC 32.4 % (32.0-36.0); MONOCYTE # 0.4 TH/MM3 (0-0.9); NEUT % 64.6 % (16.0-70.0); PLATELET COUNT 261 TH/MM3 (150-450); RED CELL DISTRIBUTION WIDTH 28.9 % (11.6-17.2); WHITE BLOOD COUNT 4.6 TH/MM3 (4.0-11.0)
--- NOTE | 2017-07-21 13:51 | RADRPT ---
EXAM DATE/TIME: 07/21/2017 13:33 [facility] COMPARISON: CT ABDOMEN & PELVIS W CONTRAST, September 07, 2015, 9:39. CT ABDOMEN & PELVIS W/O CONTRAST, July, 15:29. INDICATIONS : Diffuse abdominal pain and diarrhea x 1 month. ORAL CONTRAST: No oral contrast ingested. RADIATION DOSE: 4.56 CTDIvol (mGy) MEDICAL HISTORY : None SURGICAL HISTORY : None. ENCOUNTER: Initial ACUITY: 1 month PAIN SCALE: 9/10 LOCATION: Diffuse abdomen. TECHNIQUE: Volumetric scanning of the abdomen and pelvis was performed. Using automated exposure control and ad justment of the mA and/or kV according to patient size, radiation dose was kept as low as reasonably achievable to obtain optimal diagnostic quality images. DICOM format image data is available electro nically for review and comparison. FINDINGS: LOWER LUNGS: A long-term stable final millimeter nodule within the right lung base posteriorly. LIVER: Homogeneous density without lesion. There is no dilation of the biliary tree. Pneumobilia again seen . This is unchanged. No calcified gallstones. SPLEEN: Normal size without lesion. PANCREAS: Within normal limits. Metallic structures are seen degenerating artifact adjacent to the pancreatic h ead. KIDNEYS: Bilateral nonobstructing renal calculi are seen. The largest stones measure 7 mm in size. No ureteral stones observed. No hydronephrosis or hydroureter. No perinephric stranding. ADRENAL GLANDS: Within normal limits. VASCULAR: There is no aortic aneurysm. BOWEL/MESENTERY: The stomach, small bowel, and colon demonstrate no acute abnormality. There is no free intraperitone al air or fluid. ABDOMINAL WALL: Within normal limits. RETROPERITONEUM: There is no lymphadenopathy. BLADDER: No wall thickening or mass. REPRODUCTIVE: Within normal limits. INGUINAL: There is no lymphadenopathy or hernia. MUSCULOSKELETAL: Within normal limits for patient age. CONCLUSION: 1. No acute abnormality. 2. Pneumobilia without biliary dilatation suggesting prior sphincterotomy. This is stable. 3. Bilateral nonobstructing renal calculi. Choco Oliveira Jr., MD on July 21, 2017 at 13:43 Board Certified Radiologist. This report was verified electronically.
[2017-07-21 13:58] LABS: ALBUMIN 2.9 GM/DL (3.4-5.0); ALKALINE PHOSPHATASE 116 U/L (45-117); ALT (GPT) 45 U/L (10-53); AST (GOT) 73 U/L (15-37); BICARBONATE 25.7 MEQ/L (21.0-32.0); BLOOD UREA NITROGEN 12 MG/DL (7-18); CALCIUM 9.3 MG/DL (8.5-10.1); CHLORIDE 106 MEQ/L (98-107); GLOMERULAR FILTRATION RATE 72 ML/MIN (>89); GLUCOSE,RANDOM 76 MG/DL (74-106); LIPASE 520 U/L (73-393); SODIUM (NA) 139 MEQ/L (136-145); TOTAL BILIRUBIN ADULT 0.6 MG/DL (0.2-1.0); TOTAL PROTEIN 7.3 GM/DL (6.4-8.2)
[2017-07-21 14:12] VITALS: BP 150/76; PULSE 88; RESP 16; O2SAT 98
== END 2017-07-21 14:26 | disposition home or self-care (01) ==
LOC: PHED 11:39
DX: R19.7 Diarrhea, unspecified (principal)
CPT/HCPCS: 74020; 74176; 80053; 83605; 83690; 85025; 96361; 96374; 99285; J2270; J2405; J7030

== ENCOUNTER 2017-10-15 14:24 | Observation (INO) | payer OTHER, MEDICAID ==
[~2017-10-15] VITALS: Ht 170.2 cm; Wt 50.0 kg
[~2017-10-15 14:24] MED LIST changes: +DEXAMETHASONE SOD PHOS 4 MG/ML VIAL IV ONE; +LIDOCAINE HCL 1% PF 5 ML SYRINGE OTHER ONE; +LOPE2CAP2 PO; -LOPE2CAP92 PO; +ONDANSETRON HCL 4 MG/2 ML VIAL IV ONE; +PROPOFOL 200 MG/20 ML AMP IV ONE; +SUCCINYLCHOLINE CHLORIDE 200 MG/10 ML VIAL IV ONE
[2017-10-15 14:56] VITALS: BP 169/76; PULSE 93; RESP 37; TEMP 97.4; O2SAT 99
[2017-10-15] MEDS ORDERED: MORPHINE SULFATE 2 MG/ML INJ IV PUSH ONE ×2 (15:00→16:30)
[2017-10-15] MEDS ORDERED: GLUCAGON 1 MG/ML VIAL IV PUSH ONE (15:00)
[2017-10-15 15:34] LABS: ALBUMIN 2.6 GM/DL (3.4-5.0); ALT (GPT) 37 U/L (10-53); AST (GOT) 34 U/L (15-37); BICARBONATE 25.5 MEQ/L (21.0-32.0); BLOOD UREA NITROGEN 12 MG/DL (7-18); CALCIUM 8.6 MG/DL (8.5-10.1); CHLORIDE 110 MEQ/L (98-107); CREATININE 0.67 MG/DL (0.50-1.00); GLOMERULAR FILTRATION RATE 88 ML/MIN (>89); GLUCOSE,RANDOM 105 MG/DL (74-106); SODIUM (NA) 142 MEQ/L (136-145)
[2017-10-15 15:38] LABS: ALKALINE PHOSPHATASE 109 U/L (45-117); AUTOMATED NEUTROPHIL # 4.5 TH/MM3 (1.8-7.7); BASOPHIL % 0.4 % (0.0-2.0); EOSINOPHIL # 0.1 TH/MM3 (0-0.4); EOSINOPHIL % 0.7 % (0.0-4.0); HEMATOCRIT 26.3 % (35.0-46.0); HEMOGLOBIN 9.1 GM/DL (11.6-15.3); LYMPH % 26.9 % (9.0-44.0); LYMPHOCYTE # 1.9 TH/MM3 (1.0-4.8); MEAN CELL VOLUME 94.6 FL (80.0-100.0); MEAN CORPUSCULAR HEMOGLOBIN 32.8 PG (27.0-34.0); MEAN CORPUSCULAR HGB CONC 34.7 % (32.0-36.0); MEAN PLATELET VOLUME 6.9 FL (7.0-11.0); MONO % 7.3 % (0.0-8.0); MONOCYTE # 0.5 TH/MM3 (0-0.9); NEUT % 64.7 % (16.0-70.0); PLATELET COUNT 713 TH/MM3 (150-450); RED BLOOD COUNT 2.78 MIL/MM3 (4.00-5.30); RED CELL DISTRIBUTION WIDTH 15.6 % (11.6-17.2); TOTAL BILIRUBIN ADULT 0.3 MG/DL (0.2-1.0); TOTAL PROTEIN 7.1 GM/DL (6.4-8.2); TROPONIN I 0.02 NG/ML (0.02-0.05)
--- NOTE | 2017-10-15 15:39 | RADRPT ---
EXAM DATE/TIME: 10/15/2017 15:02 [facility] COMPARISON: CHEST SINGLE AP, January 10, 2017, 8:24. INDICATIONS : Chest pain. MEDICAL HISTORY : None. SURGICAL HISTORY : None. ENCOUNTER: Initial ACUITY: 1 day PAIN SCORE: 10/10 LOCATION: Bilateral chest FINDINGS: A single view of the chest demonstrates the lungs to be symmetrically aerated without evidence of mas s, infiltrate or effusion. The cardiomediastinal contours are unremarkable. Osseous structures are intact. CONCLUSION: No acute disease. Matthew Arredondo MD on October 15, 2017 at 15:36 Board Certified Radiologist. This report was verified electronically.
[2017-10-15] MEDS ORDERED: LORazepam 2 MG/ML VIAL IV PUSH ONE (16:30)
--- NOTE | 2017-10-15 16:34 | HHI.HP ---
[facility] Unknown Admission Diagnosis Diagnoses: (1) Esophageal obstruction due to food impaction Diagnosis: Principal (2) Dysphagia Diagnosis: Principal (3) Chest pain Diagnosis: Principal Chief Complaint: Chicken stuck in throat Travel History International Travel<30 Days: No Contact w/Intl Traveler <30 Da: No Traveled to Known Affected Are: No History of Present Illness 67-year-old female with past medical history significant for C. difficile, was cervical spine stenosis, duodenal ulcers, psoriasis, B12 deficiency, and nephrolithiasis who presents to the emergency department via [facility] after choking on a piece of chicken while eating today. Reports she was at a [employer] restaurant and was eating sesame chicken when she swallowed and began coughing, she then felt as if she could not breath and continued coughing so they called [facility]. Patient believes she did manage to swallowed a piece of chicken and does not believe it was ever coughed up or expelled. She continues to have throat pain and states that it is painful when she swallows. She also reports chest pain during the episode, denies any chest pain at the moment. Besides throat pain she also complains of mid back pain which she states she has had for a number of years due to arthritis.at the moment she also complains of some SOB, will cough and sputum is productive and describes it as yellow. Denies experiencing any fever, chills, nausea, or vomiting. Patient denies any choking or coughing in the past while eating or drinking. She does report that at one point she did have a feeding tube but that was due to her prolonged stay in the hospital when she had neck fusion. Denies having to thicken fluids to drink. Review of Systems Except as stated in HPI: all other systems reviewed are Neg Past Family Social History Past Medical History Duodenal ulcers with bleeding C. difficile Psoriasis B12 deficiency Cervical spine stenosis with myopathy Nephrolithiasis OA Past Surgical History C3-C4 fusion in 2014 Appendectomy Tonsillectomy Reported Medications Reported Meds & Active Scripts Active Lomotil (Diphenoxylate-Atropine) 2.5-0.025 Mg Tab 1 Tab PO Q6H PRN Potassium Chloride ER (Potassium Chloride) 20 Meq Tab 20 Meq PO DAILY Hm Loperamide HCl (Loperamide HCl) 2 Mg Cap 2 Mg PO Q4H PRN Allergies: Coded Allergies: *MDRO Multi-Drug Resistant Organism (Verified Adverse Reaction, Unknown, ) MRSA 2006 wounds Family History Mother: heart conditions Father: NM's Sister: DM Social History Tobacco: quit 4 yrs ago, use to smoke 1/2 PPD x 20yrs Alcohol use: denies Illicit drug use: denies Lives with sister Physical Exam Vital Signs Vital Signs Date Time Temp Pulse Resp B/P (MAP) Pulse Ox O2 Delivery O2 Flow Rate FiO2 10/15/17 14:56 Room Air 10/15/17 14:56 97.4 93 37 169/76 (107) 99 Room Air Physical Exam GENERAL: This is a thin white female in no apparent distress. SKIN: No rashes, ecchymoses or lesions. Cool and dry. HEAD: Atraumatic. Normocephalic. No temporal or scalp tenderness. EYES: Pupils equal round and reactive. Extraocular motions intact. No scleral icterus. No injection or drainage. ENT: Nose without bleeding, purulent drainage or septal hematoma. Throat without erythema, or exudate. Uvula midline. Airway patent. NECK: Trachea midline. No JVD or lymphadenopathy. Neck tenderness with palpation on right side. CARDIOVASCULAR: Regular rate and rhythm without murmurs, gallops, or rubs. RESPIRATORY: Clear to auscultation. Breath sounds equal bilaterally. No wheezes , rales, or rhonchi. GASTROINTESTINAL: Abdomen soft, non-tender, nondistended, right upper quadrant scar noted from old PEG tube. No guarding. MUSCULOSKELETAL: Extremities without clubbing, cyanosis, or edema. No joint tenderness, effusion, or edema noted. No calf tenderness. NEUROLOGICAL: Awake and alert. Cranial nerves II through XII intact. Motor and sensory grossly within normal limits. 4/5 muscle strength in all muscle groups. Normal speech, no facial droop. Laboratory Laboratory Tests Test 10/15/17 15:10 White Blood Count 7.0 Red Blood Count 2.78 Hemoglobin 9.1 Hematocrit 26.3 Mean Corpuscular Volume 94.6 Mean Corpuscular Hemoglobin 32.8 Mean Corpuscular Hemoglobin Concent 34.7 Red Cell Distribution Width 15.6 Platelet Count 713 Mean Platelet Volume 6.9 Neutrophils (%) (Auto) 64.7 Lymphocytes (%) (Auto) 26.9 Monocytes (%) (Auto) 7.3 Eosinophils (%) (Auto) 0.7 Basophils (%) (Auto) 0.4 Neutrophils # (Auto) 4.5 Lymphocytes # (Auto) 1.9 Monocytes # (Auto) 0.5 Eosinophils # (Auto) 0.1 Basophils # (Auto) 0.0 CBC Comment DIFF FINAL Differential Comment Blood Urea Nitrogen 12 Creatinine 0.67 Random Glucose 105 Total Protein 7.1 Albumin 2.6 Calcium Level 8.6 Alkaline Phosphatase 109 Aspartate Amino Transf (AST/SGOT) 34 Alanine Aminotransferase (ALT/SGPT) 37 Total Bilirubin 0.3 Sodium Level 142 Potassium Level 4.1 Chloride Level 110 Carbon Dioxide Level 25.5 Anion Gap 7 Estimat Glomerular Filtration Rate 88 Troponin I 0.02 Result Diagram: 10/15/17 1510 10/15/17 1510 Imaging Last Impressions Chest X-Ray 10/15/17 0000 Signed Impressions: Service Date/Time: Sunday, October 15, 2017 15:02 - CONCLUSION: No acute disease. MD Adela Watson VTE Risk Assessment Caprini VTE Risk Assessment: No/Low Risk (score <= 1) Caprini Risk Assessment Model Point Value = 1 Point Value = 2 Point Value = 3 Point Value = 5 Age 41-60 Minor surgery BMI > 25 kg/m2 Swollen legs Varicose veins or History of unexplained or recurrent spontaneous Oral contraceptives or hormone replacement Sepsis (< 1 month) Serious lung disease, including pneumonia (< 1 month) Abnormal pulmonary function Acute myocardial infarction Congestive heart failure (< 1 month) History of inflammatory bowel disease Medical patient at bed rest Age 61-74 Arthroscopic surgery Major open surgery (> 45 min) Laparoscopic surgery (> 45 min) Malignancy Confined to bed (> 72 hours) Immobilizing plaster cast Central venous access Age >= 75 History of VTE Family history of VTE Factor V Leiden Prothrombin [id number] Lupus anticoagulant Anticardiolipin antibodies Elevated serum homocysteine Heparin-induced thrombocytopenia Other congenital or acquired thrombophilia Stroke (< 1 month) Elective arthroplasty Hip, pelvis, or leg fracture Acute spinal cord injury (< 1 month) Prophylaxis Regimen Total Risk Factor Score Risk Level Prophylaxis Regimen 0-1 Low Early ambulation 2 Moderate Order ONE of the following: *Sequential Compression Device (SCD) *Heparin 5000 units SQ BID 3-4 Higher Order ONE of the following medications: *Heparin 5000 units SQ TID *Enoxaparin/Lovenox 40 mg SQ daily (WT < 150 kg, CrCl > 30 mL/min) *Enoxaparin/Lovenox 30 mg SQ daily (WT < 150 kg, CrCl > 10-29 mL/min) *Enoxaparin/Lovenox 30 mg SQ BID (WT < 150 kg, CrCl > 30 mL/min) AND/OR *Sequential Compression Device (SCD) 5 or more Highest Order ONE of the following medications: *Heparin 5000 units SQ TID (Preferred with Epidurals) *Enoxaparin/Lovenox 40 mg SQ daily (WT < 150 kg, CrCl > 30 mL/min) *Enoxaparin/Lovenox 30 mg SQ daily (WT < 150 kg, CrCl > 10-29 mL/min) *Enoxaparin/Lovenox 30 mg SQ BID (WT < 150 kg, CrCl > 30 mL/min) AND *Sequential Compression Device (SCD) Assessment and Plan Assessment and Plan 67-year-old female with past medical history off C. difficile, was cervical spine stenosis, duodenal ulcers, psoriasis, B12 deficiency, and nephrolithiasis who presents to the emergency department via [facility] after choking on a piece of chicken while eating today. Patient continues to complain of throat pain with swallowing. Esophageal obstruction with food - Patient continues to complain of throat pain with swallowing, given morphine while in ED - Chest x-ray done and reviewed, no acute disease seen. - Respiratory rate on admission 37 due to anxiety. Patient was provided with Ativan while in ED, appears calm during my examination. - She is on room air with oxygen saturation 99% - ED provider has spoke to GI who will likely scope patient tomorrow - Barium swallow ordered - Will place patient nothing by mouth for the moment until barium swallow is completed - We'll provide hydration with NS@100ml/hr, patient can also have ice chips. - Pain control with IV morphine, Zofran if needed for nausea - Admit patient to observation unit. Chest pain - Likely related to episode of lunch chicken and throat, denies any throat pain at the time of my examination - Troponin obtained while in ED, 0.02 - EKG done while in ED reviewed, sinus rhythm, heart rate 91 Anemia - CBC reviewed, no leukocytosis hemoglobin 9.1, hematocrit 26.3 - Patient does have history of bleeding ulcers, recheck CBC in the morning, monitor for active bleeding. DVT prophylaxis -SCDs Problem Qualifiers (1) Chest pain: Qualified Codes: R07.9 - Chest pain, unspecified Nancie Goodman Oct 15, 2017 16:34
--- NOTE | 2017-10-15 16:47 | PD ---
HPI Chief Complaint: Respiratory Symptoms Time Seen by Provider: 14:51 Travel History International Travel<30 days: No Contact w/Intl Traveler<30days: No Traveled to known affect area: No History of Present Illness HPI Patient is a 67 year old female who comes in because she believes there is chicken stuck in her throat. She says she was eating chicken for lunch when she felt it get stuck. She says she then started to feel pain in her chest. She says she can swallow, but it hurts to swallow. She says there were no bones in the chicken. She says this has never happened before. She says nothing seems to make her symptoms better. She denies difficulty breathing. PFSH Past Medical History Hx Anticoagulant Therapy: No Arthritis: Yes Asthma: No Heart Rhythm Problems: No Cardiovascular Problems: Yes (PHLEBITIS) High Cholesterol: No Chest Pain: Yes Congestive Heart Failure: No COPD: No Cerebrovascular Accident: No Diabetes: No Diminished Hearing: No Gastrointestinal Disorders: Yes Headaches: No Hiatal Hernia: No Hypertension: No Immune Disorder: No Kidney Stones: Yes Musculoskeletal: Yes Neurologic: No Respiratory: No Immunizations Current: No Migraines: Yes (as a child ) Seizures: No Sleep Apnea: No Ulcer: Yes (states hx of bleeding ulcers) ?: Not Menopausal: Yes : 0 Past Surgical History Abdominal Surgery: No Appendectomy: Yes Cardiac Surgery: No Ear Surgery: No Endocrine Surgery: No Eye Surgery: No Genitourinary Surgery: No Gynecologic Surgery: No Neurologic Surgery: Yes (CYST REMOVED FROM SPINE) Oral Surgery: No Thoracic Surgery: No Tonsillectomy: Yes Other Surgery: Yes Social History Alcohol Use: No Tobacco Use: No (QUIT 2009) Substance Use: No Allergies-Medications (Allergen,Severity, Reaction): Coded Allergies: *MDRO Multi-Drug Resistant Organism (Verified Adverse Reaction, Unknown, ) 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 Reported Meds & Prescriptions Reported Meds & Active Scripts Active Lomotil (Diphenoxylate-Atropine) 2.5-0.025 Mg Tab 1 Tab PO Q6H PRN Potassium Chloride ER (Potassium Chloride) 20 Meq Tab 20 Meq PO DAILY Hm Loperamide HCl (Loperamide HCl) 2 Mg Cap 2 Mg PO Q4H PRN Review of Systems Except as stated in HPI: all other systems reviewed are Neg General / Constitutional: No: Fever, Chills HENT: No: Headaches, Lightheadedness Cardiovascular: Positive: Chest Pain or Discomfort Respiratory: No: Cough Gastrointestinal: Positive: Nausea, No: Abdominal Pain Genitourinary: No: Dysuria Musculoskeletal: No: Myalgias Skin: No Rash, No Change in Pigmentation Neurologic: No: Weakness, Dizziness Physical Exam Narrative GENERAL: Awake and alert, in no acute distress. SKIN: Focused skin assessment warm/dry. HEAD: Atraumatic. Normocephalic. EYES: Pupils equal and round. No scleral icterus. ENT: Mucous membranes pink and moist. No drooling. NECK: Trachea midline. No JVD. CARDIOVASCULAR: Regular rate and rhythm. No murmur appreciated. RESPIRATORY: No accessory muscle use. Clear to auscultation. Breath sounds equal bilaterally. GASTROINTESTINAL: Abdomen soft, non-tender, nondistended. MUSCULOSKELETAL: No obvious deformities. No clubbing. No cyanosis. No edema. NEUROLOGICAL: Awake and alert. No obvious cranial nerve deficits. Motor grossly within normal limits. Normal speech. PSYCHIATRIC: Appropriate mood and affect; insight and judgment normal. Data Data Last Documented VS Vital Signs Date Time Temp Pulse Resp B/P (MAP) Pulse Ox O2 Delivery O2 Flow Rate FiO2 10/15/17 14:56 Room Air 10/15/17 14:56 97.4 93 37 169/76 (107) 99 Orders Orders Iv Access Insert/Monitor (10/15/17 14:54) Complete Blood Count With Diff (10/15/17 14:54) Comprehensive Metabolic Panel (10/15/17 14:54) Troponin I (10/15/17 14:54) Electrocardiogram (10/15/17 ) Morphine Inj (Morphine Inj) (10/15/17 15:00) Glucagon Inj (Glucagon Inj) (10/15/17 15:00) Chest, Single Ap (10/15/17 ) Consent (10/15/17 15:32) Panendo (10/15/17 ) Barium Swallow (10/15/17 ) Lorazepam Inj (Ativan Inj) (10/15/17 16:30) Morphine Inj (Morphine Inj) (10/15/17 16:30) Labs Laboratory Tests Test 10/15/17 15:10 White Blood Count 7.0 TH/MM3 Red Blood Count 2.78 MIL/MM3 Hemoglobin 9.1 GM/DL Hematocrit 26.3 % Mean Corpuscular Volume 94.6 FL Mean Corpuscular Hemoglobin 32.8 PG Mean Corpuscular Hemoglobin Concent 34.7 % Red Cell Distribution Width 15.6 % Platelet Count 713 TH/MM3 Mean Platelet Volume 6.9 FL Neutrophils (%) (Auto) 64.7 % Lymphocytes (%) (Auto) 26.9 % Monocytes (%) (Auto) 7.3 % Eosinophils (%) (Auto) 0.7 % Basophils (%) (Auto) 0.4 % Neutrophils # (Auto) 4.5 TH/MM3 Lymphocytes # (Auto) 1.9 TH/MM3 Monocytes # (Auto) 0.5 TH/MM3 Eosinophils # (Auto) 0.1 TH/MM3 Basophils # (Auto) 0.0 TH/MM3 CBC Comment DIFF FINAL Differential Comment Blood Urea Nitrogen 12 MG/DL Creatinine 0.67 MG/DL Random Glucose 105 MG/DL Total Protein 7.1 GM/DL Albumin 2.6 GM/DL Calcium Level 8.6 MG/DL Alkaline Phosphatase 109 U/L Aspartate Amino Transf (AST/SGOT) 34 U/L Alanine Aminotransferase (ALT/SGPT) 37 U/L Total Bilirubin 0.3 MG/DL Sodium Level 142 MEQ/L Potassium Level 4.1 MEQ/L Chloride Level 110 MEQ/L Carbon Dioxide Level 25.5 MEQ/L Anion Gap 7 MEQ/L Estimat Glomerular Filtration Rate 88 ML/MIN Troponin I 0.02 NG/ML [facility] Medical Decision Making Medical Screen Exam Complete: Yes Emergency Medical Condition: Yes Medical Record Reviewed: Yes Interpretation(s) ECG shows NSR at 91, no ST elevation or depression, normal intervals. Differential Diagnosis food impaction vs throat irritation vs chest pain Narrative Course Patient is a 67 year old female who comes in complaining of a food bolus. She says she has chicken stuck in her throat. She has no signs of airway compromise. IV established, labs sent. Labs show no acute abnormalities. Given Glucagon and morphine. I spoke with Dr. Bailey who came to see the patient. She suggests observation and a barium swallow. Patient admitted for further management. Diagnosis Primary Impression: Esophageal obstruction due to food impaction Additional Impression: Chest pain Qualified Codes: R07.9 - Chest pain, unspecified Admitting Information Admitting Physician Requests: Observation Pina Stovall MD Oct 15, 2017 16:47
[2017-10-15] MEDS ORDERED: IOHEXOL 350 MG/ML 10 ML VIAL (for RAD DIAG) IVCONTRAST ONE (16:50)
[2017-10-15] MEDS ORDERED: SODIUM CHLORIDE 0.9% FLUSH 10 ML FLUSH IV FLUSH PRN (17:00)
[2017-10-15] MEDS ORDERED: SENNOSIDES 8.6 MG TAB PO PRN (17:00)
[2017-10-15] MEDS ORDERED: LACTULOSE SYRUP 20 GM/30 ML CUP PO PRN (17:00)
[2017-10-15] MEDS ORDERED: MAGNESIUM HYDROXIDE SUSP 30 ML CUP PO PRN (17:00)
[2017-10-15] MEDS ORDERED: BISACODYL 10 MG SUPP RECTAL PRN (17:00)
[2017-10-15] MEDS ORDERED: NALOXONE HCL 0.4 MG/ML AMP IV PUSH PRN (17:00)
[2017-10-15] MEDS ORDERED: ONDANSETRON HCL 4 MG/2 ML VIAL IVP PRN (17:00)
[2017-10-15 17:32] VITALS: O2SAT 99
[2017-10-15] MEDS: SODIUM CHLOR 0.9% 1000 ML INJ 1,000 ML IV SCH (17:44)
--- NOTE | 2017-10-15 18:19 | MB ---
cc: LUCA RODRIGUEZ M.D. DATE OF CONSULTATION 10/15/[address] Rogers REASON FOR CONSULTATION Possible foreign body impaction. HISTORY OF THE PRESENT ILLNESS Ms. Pearl is a 67-year-old lady with multiple medical problems. She came to the emergency room brought by [facility] after choking on a piece of chicken. According to her she was in a restaurant eating chicken and she started coughing, felt that she could not breathe and swallow , [facility] was called. She swallowed the chicken and shortly after that the coughing began again. She also was vomiting along with shortness of breath. According to her a piece of chicken never came back. She is feeling better at this time. She is complaining of some pain in her throat. I gave her water to swallow and she was able to swallow it. Also she complains of some pain on the left side of her neck and back pain. She usually has back pain but according to her this is a bit worse than normal. Currently she is not coughing. Her saturations are okay. As I mentioned, I gave her water to drink and she was able to drink it and keep it down. She just complains of some pain in her throat when swallowing. PAST MEDICAL HISTORY 1. Bleeding ulcer. 2. Osteoarthritis. 3. Colitis. PAST SURGICAL HISTORY 1. Neck fusion. 2. Appendectomy. 3. Tonsillectomy. MEDICATIONS 1. Lomotil. 2. Potassium chloride. 3. Imodium p.r.n. ALLERGIES No known allergies. FAMILY HISTORY Coronary artery disease. SOCIAL HISTORY Quit smoking 4 years ago. Denies any alcohol or illicit drugs. She lives with her sister. PHYSICAL EXAMINATION GENERAL: On clinical examination she is sitting comfortably in bed at this time in no acute distress. Edentulous. VITAL SIGNS: Temperature 97.4, pulse 93, respiration 20, blood pressure 169/76. HEENT: Pupils equal, round, reactive to light and accommodation. NECK: No JVD. No lymphadenopathy. CHEST: Clear to auscultation and percussion. CARDIOVASCULAR: S1-S2. No murmur. ABDOMEN: Soft. Nontender. Bowel sounds are present. CENTRAL NERVOUS SYSTEM: Awake, alert, oriented x3. No focal signs identified. LABORATORY DATA Her labs were reviewed. Hemoglobin 9.1, white count 7.0, platelets 713. IMAGING Chest x-ray was normal. IMPRESSION 1. Choking episode after eating chicken. The patient is able to swallow water at this time, possible passed. 2. Odynophagia, most likely secondary to food bolus impaction. Clinically seems to have resolved at this time. Upper endoscopy, dilatation and possible foreign body was discussed with the patient. At this time OR has a full schedule, unable to accommodate right away but she may have passed the bolus. RECOMMENDATIONS 1. N.p.o. except medication. 2. Barium swallow. 3. PPI. 4. If any indication of food bolus obstruction we will do an endoscopy tonight, if not tomorrow morning to further evaluate. We will also reviewed her old records and she has a history of anemia, colitis and peptic ulcer disease. Thank you again. We will continue to follow the patient along with you. MD LINDA Rebolledo/RASHARD /5:02 PM /5:44 PM MTDChristina
[2017-10-15 18:52] VITALS: BP 164/88; PULSE 89; RESP 24; TEMP 97.6; O2SAT 98
[2017-10-15] MEDS ORDERED: SODIUM CHLORID 0.9% 500 ML IV PRN (19:45)
[2017-10-15] MEDS ORDERED: CHLORHEXIDINE GLUCONATE 2 % 1 PACK (2 CLOTHS) TOPICAL PRN (19:45)
[2017-10-15] MEDS ORDERED: POVIDONE IODINE 5% (ANTISEPSIS KIT) 4 APPLICATIONS EACH NARE PRN (19:45)
[2017-10-15] MEDS ORDERED: LACTATED RINGER'S 1000 ML IV PRN (19:45)
[2017-10-15] MEDS ORDERED: FLUMAZENIL 1 MG/10 ML VIAL ONE (20:13)
[2017-10-15] MEDS ORDERED: MIDAZOLAM HCL 2 MG/2 ML VIAL ONE (20:25)
--- NOTE | 2017-10-15 20:27 | PD.PROCEDR ---
GI Procedure PROCEDURE PERFORMED EGD with biopsy INDICATION FOR PROCEDURE Possible foreign body impaction PROCEDURE: The procedure, risks and benefits were discussed with Ms. Pearl and informed consent was obtained. Anesthesia sedated her with Diprivan. She was placed in the left lateral decubitus position. EGD: The Pentax videoscope was introduced through the oropharynx and advanced to the second portion of the duodenum under direct visualization. Retroflexion was performed in the stomach. Biopsy from the pyloric channel, distal esophagus, and proximal esophagus FINDINGS: Nodular mucosa at the proximal esophagus biopsy was done Severe esophagitis with an area that has Shae-Regalado tear most likely from retching because of foreign body, biopsy from the distal esophagus for esophagitis Stomach full of food possible gastroparesis Pyloric channel ulcer large extending to the duodenum bulb biopsy was done ESTIMATED BLOOD LOSS: None SPECIMENS REMOVED: Proximal esophagus, distal esophagus, pyloric channel COMPLICATIONS: None PLAN: Clear liquid Start PPI Monitor H&H Gastric emptying study later Maral Edwards MD Oct 15, 2017 20:27
[2017-10-15] MEDS ORDERED: PANTOPRAZOLE SOD 40 MG DELAYED RELEASE TAB PO ONE (20:30)
[2017-10-15] MEDS: SODIUM CHLORIDE 0.9% FLUSH 10 ML FLUSH IV FLUSH SCH (20:45)
[2017-10-15] MEDS ORDERED: DO NOT ADM ANY ANTICOAGULANT DRUGS PRN (20:45)
[2017-10-15 21:37] VITALS: BP_SYST 165; BP_SYST 175; BP_DIAS 79; BP_DIAS 87; PULSE 78; RESP 18; TEMP 98.4; O2SAT 98
[2017-10-15] MEDS: MORPHINE SULFATE 2 MG/ML INJ IV PUSH PRN (23:14)
[2017-10-16 00:17] VITALS: BP 151/97; PULSE 97; RESP 18; TEMP 98.1; O2SAT 94
[2017-10-16] MEDS: MORPHINE SULFATE 2 MG/ML INJ IV PUSH PRN ×3 (05:18→20:37)
[2017-10-16 05:24] VITALS: BP 131/83; PULSE 87; RESP 18; TEMP 98.1; O2SAT 96
[2017-10-16 07:33] VITALS: BP 156/86; PULSE 104; RESP 18; TEMP 98; O2SAT 100
[2017-10-16 08:33] LABS: AUTOMATED NEUTROPHIL # 15.4 TH/MM3 (1.8-7.7); BASOPHIL % 0.1 % (0.0-2.0); HEMATOCRIT 25.1 % (35.0-46.0); HEMOGLOBIN 8.4 GM/DL (11.6-15.3); LYMPH % 10.1 % (9.0-44.0); LYMPHOCYTE # 1.8 TH/MM3 (1.0-4.8); MEAN CELL VOLUME 94.6 FL (80.0-100.0); MEAN CORPUSCULAR HEMOGLOBIN 31.8 PG (27.0-34.0); MEAN CORPUSCULAR HGB CONC 33.6 % (32.0-36.0); MEAN PLATELET VOLUME 6.9 FL (7.0-11.0); MONO % 3.4 % (0.0-8.0); MONOCYTE # 0.6 TH/MM3 (0-0.9); NEUT % 86.4 % (16.0-70.0); PLATELET COUNT 714 TH/MM3 (150-450); RED BLOOD COUNT 2.66 MIL/MM3 (4.00-5.30); RED CELL DISTRIBUTION WIDTH 15.7 % (11.6-17.2); WHITE BLOOD COUNT 17.8 TH/MM3 (4.0-11.0)
[2017-10-16 08:44] LABS: CALCIUM 8.6 MG/DL (8.5-10.1); CREATININE 0.57 MG/DL (0.50-1.00)
[2017-10-16] MEDS: SODIUM CHLORIDE 0.9% FLUSH 10 ML FLUSH IV FLUSH SCH ×2 (09:00→21:00)
--- NOTE | 2017-10-16 09:46 | HHI.GIFU ---
Subjective Remarks Pt resting in bed. About to have clear liquid breakfast. Still with abd pain. No n/v currently. (Paige Lancaster) Objective Vitals I&O Vital Signs Date Time Temp Pulse Resp B/P (MAP) Pulse Ox O2 Delivery O2 Flow Rate FiO2 10/16/17 07:33 98.0 104 18 156/86 (109) 100 10/16/17 05:24 98.1 87 18 131/83 (99) 96 10/16/17 00:17 98.1 97 18 151/97 (115) 94 10/15/17 21:37 98.4 78 18 175/87 (116) 98 10/15/17 20:45 97 21 165/79 (107) 100 Nasal Cannula 2 10/15/17 20:30 97.9 98 21 155/73 (100) 100 Nasal Cannula 2 10/15/17 18:52 97.6 89 24 164/88 (113) 98 10/15/17 18:45 10/15/17 17:32 99 21 10/15/17 14:56 Room Air 10/15/17 14:56 97.4 93 37 169/76 (107) 99 Room Air I/O 10/15/17 10/15/17 10/15/17 10/16/17 10/16/17 10/16/17 07:00 15:00 23:00 07:00 15:00 23:00 Intake Total 500 ml Balance 500 ml Intake Other 500 ml Laboratory Laboratory Tests Test 10/15/17 15:10 10/16/17 08:05 White Blood Count 7.0 17.8 Red Blood Count 2.78 2.66 Hemoglobin 9.1 8.4 Hematocrit 26.3 25.1 Mean Corpuscular Volume 94.6 94.6 Mean Corpuscular Hemoglobin 32.8 31.8 Mean Corpuscular Hemoglobin Concent 34.7 33.6 Red Cell Distribution Width 15.6 15.7 Platelet Count 713 714 Mean Platelet Volume 6.9 6.9 Neutrophils (%) (Auto) 64.7 86.4 Lymphocytes (%) (Auto) 26.9 10.1 Monocytes (%) (Auto) 7.3 3.4 Eosinophils (%) (Auto) 0.7 0.0 Basophils (%) (Auto) 0.4 0.1 Neutrophils # (Auto) 4.5 15.4 Lymphocytes # (Auto) 1.9 1.8 Monocytes # (Auto) 0.5 0.6 Eosinophils # (Auto) 0.1 0.0 Basophils # (Auto) 0.0 0.0 CBC Comment DIFF FINAL AUTO DIFF Differential Comment Blood Urea Nitrogen 12 9 Creatinine 0.67 0.57 Random Glucose 105 89 Total Protein 7.1 Albumin 2.6 Calcium Level 8.6 8.6 Alkaline Phosphatase 109 Aspartate Amino Transf (AST/SGOT) 34 Alanine Aminotransferase (ALT/SGPT) 37 Total Bilirubin 0.3 Sodium Level 142 141 Potassium Level 4.1 4.3 Chloride Level 110 110 Carbon Dioxide Level 25.5 25.0 Anion Gap 7 6 Estimat Glomerular Filtration Rate 88 106 Troponin I 0.02 Imaging Last Impressions Chest X-Ray 10/15/17 0000 Signed Impressions: Service Date/Time: Sunday, October 15, 2017 15:02 - CONCLUSION: No acute disease. Matthew Arredondo MD Physical Exam HEENT: PERRL; normocephalic; atraumatic; no jaundice. CHEST: diminished CARDIAC: RRR ABDOMEN: Soft, nondistended, diffuse TTP; no hepatosplenomegaly; bowel sounds are present in all four quadrants. EXTREMITIES: No clubbing, cyanosis, or edema. SKIN: Normal; no rash; no jaundice. 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 (Paige Lancaster) Assessment and Plan Plan ASSESSMENT - choking episode after eating chicken, odynophagia - s/p EGD found severe esophagitis with roula- champion tear li ekly from retching b/c of foreign body, stomach full of food poss gastroparesis, pyloric channel ulcer large - leukocytosis - WBC up today to 17.8 PLAN - await bx - can advance diet to full liquid if she tolerates her clear breakfast - GES - continue PPI - supportive care - further recs to follow pt seen by myself and Dr Sanchez and this note is written on his behalf (Paige Lancaster) Physician Comments Patient seen and examined Agree with above Continue with current supportive care Monitor labs Advanced to a full liquid diet Await emptying scan (Boone Sanchez MD) Paige Lancaster Oct 16, 2017 09:46 Boone Sanchez MD Oct 16, 2017 23:41
[2017-10-16] MEDS: PANTOPRAZOLE SOD 40 MG DELAYED RELEASE TAB PO SCH (09:57)
[2017-10-16 09:58] LABS: BANDS 26 % (0-6); LYMPHOCYTES 8 % (9-44); MONOCYTES 4 % (0-8); NEUTROPHIL # MANUAL DIFF 15.7 TH/MM3 (1.8-7.7); POLYS (SEG NEUTROPHILS) 62 % (16-70)
[2017-10-16 11:20] VITALS: BP 149/66; PULSE 95; RESP 18; TEMP 97.8; O2SAT 95
[2017-10-16] MEDS: SODIUM CHLOR 0.9% 1000 ML INJ 1,000 ML IV SCH (12:06)
--- NOTE | 2017-10-16 13:48 | HHI.PR ---
Subjective Remarks Doesn't feel comfortable to go silvino preet, says she is not able to eat much still with significant pain when she is swallowing food. no fever or chills.No n /vdc. Plan for gastric empying study discussed with GI Objective Vitals Vital Signs Date Time Temp Pulse Resp B/P (MAP) Pulse Ox O2 Delivery O2 Flow Rate FiO2 10/16/17 11:20 97.8 95 18 149/66 (93) 95 10/16/17 07:33 98.0 104 18 156/86 (109) 100 10/16/17 05:24 98.1 87 18 131/83 (99) 96 10/16/17 00:17 98.1 97 18 151/97 (115) 94 10/15/17 21:37 98.4 78 18 175/87 (116) 98 10/15/17 20:45 97 21 165/79 (107) 100 Nasal Cannula 2 10/15/17 20:30 97.9 98 21 155/73 (100) 100 Nasal Cannula 2 10/15/17 18:52 97.6 89 24 164/88 (113) 98 10/15/17 18:45 10/15/17 17:32 99 21 10/15/17 14:56 Room Air 10/15/17 14:56 97.4 93 37 169/76 (107) 99 Room Air I/O 10/15/17 10/15/17 10/15/17 10/16/17 10/16/17 10/16/17 07:00 15:00 23:00 07:00 15:00 23:00 Intake Total 500 ml Balance 500 ml Intake Other 500 ml Result Diagram: 10/16/17 0805 10/16/17 0805 Imaging Last Impressions Chest X-Ray 10/15/17 0000 Signed Impressions: Service Date/Time: Sunday, October 15, 2017 15:02 - CONCLUSION: No acute disease. Matthew Arredondo MD Objective Remarks GENERAL: This is a thin white female in no apparent distress. CARDIOVASCULAR: Regular rate and rhythm without murmurs, gallops, or rubs. RESPIRATORY: Clear to auscultation. Breath sounds equal bilaterally. No wheezes , rales, or rhonchi. GASTROINTESTINAL: Abdomen soft, non-tender, nondistended, right upper quadrant scar noted from old PEG tube. No guarding. MUSCULOSKELETAL: Extremities without clubbing, cyanosis, or edema. No joint tenderness, effusion, or edema noted. No calf tenderness. NEUROLOGICAL: Awake and alert. Cranial nerves II through XII intact. Motor and sensory grossly within normal limits. 4/5 muscle strength in all muscle groups. Normal speech, no facial droop. A/P Problem List: (1) Esophageal obstruction due to food impaction ICD Code: K22.2 - Esophageal obstruction; T18.128A - Food in esophagus causing other injury, initial encounter Status: Acute (2) Dysphagia ICD Code: R13.10 - Dysphagia Status: Acute (3) Chest pain ICD Code: R07.9 - Chest pain, unspecified Status: Acute Assessment and Plan 67-year-old female with past medical history off C. difficile, was cervical spine stenosis, duodenal ulcers, psoriasis, B12 deficiency, and nephrolithiasis who presents to the emergency department via [facility] after choking on a piece of chicken while eating today. Patient continues to complain of throat pain with swallowing. Esophageal obstruction with food - Patient continues to complain of throat pain with swallowing, given morphine while in ED - Chest x-ray done and reviewed, no acute disease seen. - Respiratory rate on admission 37 due to anxiety. Patient was provided with Ativan while in ED, appears calm during my examination. - She is on room air with oxygen saturation 99% - ED provider has spoke to GI who will likely scope patient tomorrow - Barium swallow ordered - Will place patient nothing by mouth for the moment until barium swallow is completed - We'll provide hydration with NS@100ml/hr, patient can also have ice chips. - Pain control with IV morphine, Zofran if needed for nausea - Admit patient to observation unit. Chest pain - Likely related to episode of lunch chicken and throat, denies any throat pain at the time of my examination - Troponin obtained while in ED, 0.02 - EKG done while in ED reviewed, sinus rhythm, heart rate 91 Anemia - CBC reviewed, no leukocytosis hemoglobin 9.1, hematocrit 26.3 - Patient does have history of bleeding ulcers, recheck CBC in the morning, monitor for active bleeding. DVT prophylaxis -SCDs Discussed with the patient, nurse Problem Qualifiers (1) Chest pain: Qualified Codes: R07.9 - Chest pain, unspecified Isabella Hahn MD Oct 16, 2017 13:48
--- NOTE | 2017-10-16 15:26 | EKG ---
Date Performed: 10/15/2017 Time Performed: 14:59:49 PTAGE: 67 years EKG: Sinus rhythm VOLTAGE CRITERIA FOR LVH Since previous tracing, no significant change noted ABNORMAL ECG PREVIOUS TRACING : 07/05/2017 10.47 DOCTOR: Christiano Elliott Interpretating Date/Time 10/16/2017 15:25:08
[2017-10-16 15:55] VITALS: BP 124/58; PULSE 96; RESP 18; TEMP 98; O2SAT 100
[2017-10-16 22:41] VITALS: BP 123/83; PULSE 112; RESP 18; O2SAT 100
[2017-10-17 01:05] VITALS: BP 188/77; PULSE 106; RESP 18; TEMP 98; O2SAT 100
[2017-10-17] MEDS: MORPHINE SULFATE 2 MG/ML INJ IV PUSH PRN ×2 (02:44→08:46)
[2017-10-17 06:55] LABS: AUTOMATED NEUTROPHIL # 6.2 TH/MM3 (1.8-7.7); BASOPHIL % 0.2 % (0.0-2.0); EOSINOPHIL # 0.1 TH/MM3 (0-0.4); EOSINOPHIL % 0.6 % (0.0-4.0); HEMATOCRIT 22.6 % (35.0-46.0); HEMOGLOBIN 7.8 GM/DL (11.6-15.3); LYMPH % 22.2 % (9.0-44.0); MEAN CELL VOLUME 95.4 FL (80.0-100.0); MEAN CORPUSCULAR HEMOGLOBIN 32.8 PG (27.0-34.0); MEAN CORPUSCULAR HGB CONC 34.4 % (32.0-36.0); MEAN PLATELET VOLUME 6.8 FL (7.0-11.0); MONO % 7.6 % (0.0-8.0); MONOCYTE # 0.7 TH/MM3 (0-0.9); NEUT % 69.4 % (16.0-70.0); PLATELET COUNT 563 TH/MM3 (150-450); RED BLOOD COUNT 2.37 MIL/MM3 (4.00-5.30); RED CELL DISTRIBUTION WIDTH 15.5 % (11.6-17.2); WHITE BLOOD COUNT 8.9 TH/MM3 (4.0-11.0)
[2017-10-17 07:25] LABS: BICARBONATE 23.6 MEQ/L (21.0-32.0); CALCIUM 7.8 MG/DL (8.5-10.1); CREATININE 0.52 MG/DL (0.50-1.00)
[2017-10-17 08:00] VITALS: BP 169/74; PULSE 108; RESP 19; TEMP 97.2; O2SAT 98
--- NOTE | 2017-10-17 08:25 | HHI.PR ---
Subjective Remarks At th margin of the bed. Doesn't tolerated food. Plan for gastric emptying study , CT abd. Patient with pain with swallowing. No fever or chills. Some nausea. No vomiting. Objective Vitals Vital Signs Date Time Temp Pulse Resp B/P (MAP) Pulse Ox O2 Delivery O2 Flow Rate FiO2 10/17/17 01:05 98.0 106 18 188/77 (114) 100 10/16/17 22:41 112 18 123/83 (96) 100 10/16/17 20:42 18 10/16/17 15:55 98.0 96 18 124/58 (80) 100 10/16/17 11:20 97.8 95 18 149/66 (93) 95 Result Diagram: 10/17/17 0540 10/17/17 0540 Imaging Last Impressions Chest X-Ray 10/15/17 0000 Signed Impressions: Service Date/Time: Sunday, October 15, 2017 15:02 - CONCLUSION: No acute disease. Matthew Arredondo MD Objective Remarks GENERAL: This is a thin white female in no apparent distress. CARDIOVASCULAR: Regular rate and rhythm without murmurs, gallops, or rubs. RESPIRATORY: Clear to auscultation. Breath sounds equal bilaterally. No wheezes , rales, or rhonchi. GASTROINTESTINAL: Abdomen soft, non-tender, nondistended, right upper quadrant scar noted from old PEG tube. No guarding. MUSCULOSKELETAL: Extremities without clubbing, cyanosis, or edema. No joint tenderness, effusion, or edema noted. No calf tenderness. NEUROLOGICAL: Awake and alert. Cranial nerves II through XII intact. Motor and sensory grossly within normal limits. 4/5 muscle strength in all muscle groups. Normal speech, no facial droop. A/P Problem List: (1) Esophageal obstruction due to food impaction ICD Code: K22.2 - Esophageal obstruction; T18.128A - Food in esophagus causing other injury, initial encounter Status: Acute (2) Dysphagia ICD Code: R13.10 - Dysphagia Status: Acute (3) Chest pain ICD Code: R07.9 - Chest pain, unspecified Status: Acute Assessment and Plan 67-year-old female with past medical history off C. difficile, was cervical spine stenosis, duodenal ulcers, psoriasis, B12 deficiency, and nephrolithiasis who presents to the emergency department via [facility] after choking on a piece of chicken while eating today. Patient continues to complain of throat pain with swallowing. Esophageal obstruction with food s/p - Patient continues to complain of throat pain with swallowing, given morphine while in ED - Chest x-ray done and reviewed, no acute disease seen. - Respiratory rate on admission 37 due to anxiety. Patient was provided with Ativan while in ED, appears calm during my examination. - She is on room air with oxygen saturation 99% - s/p EGD - CLD advanced per GI. - We'll provide hydration with NS@100ml/hr, patient can also have ice chips. - Pain control with IV morphine, as patient cant swallow, Zofran if needed for nausea - plan for gastric emptying study and C abd with contrast. Also might consider wallow eval Chest pain - Likely related to episode of lunch chicken and throat, denies any throat pain at the time of my examination - Troponin obtained while in ED, 0.02 - EKG done while in ED reviewed, sinus rhythm, heart rate 91 Anemia - CBC reviewed, no leukocytosis hemoglobin 9.1, hematocrit 26.3 - Patient does have history of bleeding ulcers, recheck CBC in the morning, monitor for active bleeding. DVT prophylaxis -SCDs Discussed with the patient, nurse DC plan : Poss DC if cleared by GI. Patient with dysphagia and not tolerating food. Problem Qualifiers (1) Chest pain: Qualified Codes: R07.9 - Chest pain, unspecified Isabella Hahn MD Oct 17, 2017 08:25
[2017-10-17] MEDS ORDERED: POTASSIUM CHLORIDE 25 MEQ EFFERVESCENT TAB PO ONE (08:30)
[2017-10-17] MEDS: SODIUM CHLORIDE 0.9% FLUSH 10 ML FLUSH IV FLUSH SCH ×2 (08:45→20:45)
[2017-10-17] MEDS: SODIUM CHLOR 0.9% 1000 ML INJ 1,000 ML IV SCH ×3 (08:45→18:49)
[2017-10-17] MEDS: PANTOPRAZOLE SOD 40 MG DELAYED RELEASE TAB PO SCH (08:46)
--- NOTE | 2017-10-17 10:34 | HHI.GIFU ---
Subjective Remarks resting in the bed, still having some LUQ pain, better with pain management No nausea and vomiting Tolerate and small amount of clear liquids and full liquids (Ines Alexander) Objective Vitals I&O Vital Signs Date Time Temp Pulse Resp B/P (MAP) Pulse Ox O2 Delivery O2 Flow Rate FiO2 10/17/17 08:00 97.2 108 19 169/74 (105) 98 10/17/17 01:05 98.0 106 18 188/77 (114) 100 10/16/17 22:41 112 18 123/83 (96) 100 10/16/17 20:42 18 10/16/17 15:55 98.0 96 18 124/58 (80) 100 10/16/17 11:20 97.8 95 18 149/66 (93) 95 Laboratory Laboratory Tests Test 10/17/17 05:40 White Blood Count 8.9 Red Blood Count 2.37 Hemoglobin 7.8 Hematocrit 22.6 Mean Corpuscular Volume 95.4 Mean Corpuscular Hemoglobin 32.8 Mean Corpuscular Hemoglobin Concent 34.4 Red Cell Distribution Width 15.5 Platelet Count 563 Mean Platelet Volume 6.8 Neutrophils (%) (Auto) 69.4 Lymphocytes (%) (Auto) 22.2 Monocytes (%) (Auto) 7.6 Eosinophils (%) (Auto) 0.6 Basophils (%) (Auto) 0.2 Neutrophils # (Auto) 6.2 Lymphocytes # (Auto) 2.0 Monocytes # (Auto) 0.7 Eosinophils # (Auto) 0.1 Basophils # (Auto) 0.0 CBC Comment DIFF FINAL Differential Comment Blood Urea Nitrogen 8 Creatinine 0.52 Random Glucose 82 Calcium Level 7.8 Sodium Level 144 Potassium Level 3.4 Chloride Level 111 Carbon Dioxide Level 23.6 Anion Gap 9 Estimat Glomerular Filtration Rate 118 Imaging Last Impressions Chest X-Ray 10/15/17 0000 Signed Impressions: Service Date/Time: Sunday, October 15, 2017 15:02 - CONCLUSION: No acute disease. Matthew Arredondo MD Physical Exam HEENT: PERRL; normocephalic; atraumatic; no jaundice., Pale CHEST: diminished especially at bases CARDIAC: RRR ABDOMEN: Soft, nondistended, left upper quadrant dull pain; no hepatosplenomegaly; bowel sounds are present EXTREMITIES: No clubbing, cyanosis, or edema. SKIN: Thin skin turgor; no rash; no jaundice. 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 - Patient continues to complain today of left upper quadrant pain to the point that she took pain meds. Pain possible diverticulitis? Rule out. PLAN - await bx - CT scan abdomen and pelvis with IV contrast, BUN/creatinine normal range - ST eval and treat for swallow possible dysphagia - Diet full liquids, after gastric emptying study, consider increase diet to heart healthy soft foods - Gastric emptying study today - Call for any acute bleeding - Monitor labs - continue PPI - supportive care - further recs to follow pt seen by myself and Dr Sanchez, note is written on his behalf (Ines Alexander) Physician Comments Patient seen and examined Agree with above Continue with current supportive care Monitor labs CT of the abdomen unremarkable Gastric emptying reveals gastroparesis no response to Reglan Consideration can be made for erythromycin 250 mg half hour before meals or as needed (Boone Sanchez MD) Ines Alexander Oct 17, 2017 10:34 Boone Sanchez MD Oct 18, 2017 01:22
[2017-10-17] MEDS ORDERED: DIATRIZOATE MEGLUM/DIATRIZOATE SOD 9 ML CUP PO ONE (11:00)
[2017-10-17] MEDS ORDERED: METOCLOPRAMIDE HCL 10 MG/2 ML VIAL ONE (11:29)
[2017-10-17 12:00] VITALS: BP 155/96; PULSE 110; RESP 19; TEMP 96.6; O2SAT 93
--- NOTE | 2017-10-17 12:23 | RADRPT ---
EXAM DATE/TIME: 10/17/2017 09:54 [facility] COMPARISON: No previous studies available for comparison. INDICATIONS : Abdominal pain. DOSE: 1.1 mCi Tc99m Sulfur Colloid Labeled Whole egg PO MEDICATONS: 1.) 5 mg Reglan IV at 90 minutes IMAGIN hrs MEDICAL HISTORY : Hypertension. SURGICAL HISTORY : Cyst removed from spine. ENCOUNTER: Initial ACUITY: 1 day PAIN SCALE: 3/10 LOCATION: Abdomen. TECHNIQUE: Following the oral ingestion of radiotracer-labeled meal, dynamic sequential images in the [place] projec tion were acquired with simultaneous computer acquisition. The data set was decay-corrected. FINDINGS: LAG PHASE: There is very minutes before onset of gastric emptying. EMPTYING: Gastric emptying kinetics are linear. The decay-corrected, back-extrapolated half-time of emptying i s greater than 90 minutes. (Normal for this lab is 45- 90 minutes.) There is approximately 22% gastr ic emptying at 90 minutes. INTERVENTION: Reglan was given at 90 minutes with no response CONCLUSION: 1. Abnormal gastric emptying with 22% calculated emptying at 90 minutes. 2. No response to Reglan Matthew Arredondo MD on October 17, 2017 at 12:20 Board Certified Radiologist. This report was verified electronically.
[2017-10-17] MEDS ORDERED: oxyCODONE/ACETAMINOPHEN 5 MG/325 MG TAB PO PRN (12:45)
[2017-10-17] MEDS: oxyCODONE/ACETAMINOPHEN 10 MG/325 MG TAB PO PRN ×3 (13:26→23:08)
[2017-10-17] MEDS: MORPHINE SULFATE 2 MG/ML INJ IM PRN (15:24)
[2017-10-17 16:00] VITALS: BP 121/57; PULSE 126; RESP 19; TEMP 96.4; O2SAT 96
--- NOTE | 2017-10-17 16:34 | RADRPT ---
EXAM DATE/TIME: 10/17/2017 16:01 [facility] COMPARISON: CT ABDOMEN & PELVIS W/O CONTRAST, July 21, 2017, 13:33. INDICATIONS : General abdomen pain IV CONTRAST: 76 cc Omnipaque 350 (iohexol) IV ORAL CONTRAST: Prescribed oral contrast ingested. RADIATION DOSE: 4.48 CTDIvol (mGy) MEDICAL HISTORY : Cardiovascular disease. Ulcers. Renal calculi. SURGICAL HISTORY : Appendectomy. Pacemaker. ENCOUNTER: Initial ACUITY: 1 day PAIN SCALE: 9/10 LOCATION: Abdomen TECHNIQUE: Volumetric scanning of the abdomen and pelvis was performed. Using automated exposure control and ad justment of the mA and/or kV according to patient size, radiation dose was kept as low as reasonably achievable to obtain optimal diagnostic quality images. DICOM format image data is available electro nically for review and comparison. FINDINGS: LOWER LUNGS: The visualized lower lungs are clear. Stable minimal scarring in the left lower lobe LIVER: Homogeneous density without lesion. There is no dilation of the biliary tree. No calcified gallston es. Stable pneumobilia unchanged without dilatation of the biliary tree . A few surgical clips in the upper abdomen SPLEEN: Normal size without lesion. PANCREAS: Within normal limits. KIDNEYS: Normal in size and shape. There is no mass or hydronephrosis. Stable bilateral calyceal nonobstructi ng subcentimeter stones once it was on the left than the right. ADRENAL GLANDS: Within normal limits. VASCULAR: There is no aortic aneurysm. BOWEL/MESENTERY: The stomach, small bowel, and colon demonstrate no acute abnormality. There is no free intraperitone al air or fluid. ABDOMINAL WALL: Within normal limits. RETROPERITONEUM: There is no lymphadenopathy. BLADDER: No wall thickening or mass. REPRODUCTIVE: Within normal limits. INGUINAL: There is no lymphadenopathy or hernia. MUSCULOSKELETAL: Within normal limits for patient age. Minimal degenerative changes the lumbar spine with degenerative disc disease L3 through S1 narrowed disc spaces there back in size and hypertropic spurring. CONCLUSION: Stable CT scan of the abdomen with no evidence of acute intra-abdominal or pelvic process. Bilateral nonobstructing calyceal renal stones. Pneum obilia without evidence of ductal dilatation. Surgical clips in the upper abdomen without definite vi sualization of the gallbladder. Correlation with clinical history recommended. Justin Bowers MD on October 17, 2017 at 16:20 Board Certified Radiologist. This report was verified electronically.
[2017-10-17 20:36] VITALS: BP 124/58; PULSE 114; RESP 18; TEMP 97.8; O2SAT 100
[2017-10-18] MEDS: MORPHINE SULFATE 2 MG/ML INJ IM PRN ×2 (01:26→08:25)
[2017-10-18 01:36] VITALS: BP 148/74; PULSE 104; RESP 18; TEMP 98; O2SAT 95
[2017-10-18] MEDS: SODIUM CHLOR 0.9% 1000 ML INJ 1,000 ML IV SCH (04:51)
[2017-10-18] MEDS: oxyCODONE/ACETAMINOPHEN 10 MG/325 MG TAB PO PRN (04:54)
[2017-10-18 07:43] VITALS: BP 150/69; PULSE 105; RESP 18; TEMP 97.9; O2SAT 95
[2017-10-18] MEDS: PANTOPRAZOLE SOD 40 MG DELAYED RELEASE TAB PO SCH (08:25)
[2017-10-18] MEDS: SODIUM CHLORIDE 0.9% FLUSH 10 ML FLUSH IV FLUSH SCH (08:25)
[2017-10-18] MEDS ORDERED: MORPHINE SULFATE 2 MG/ML INJ IV PUSH PRN (08:30)
[2017-10-18 09:45] LABS: AUTOMATED NEUTROPHIL # 3.6 TH/MM3 (1.8-7.7); BASOPHIL % 0.3 % (0.0-2.0); EOSINOPHIL # 0.1 TH/MM3 (0-0.4); HEMATOCRIT 24.4 % (35.0-46.0); HEMOGLOBIN 8.1 GM/DL (11.6-15.3); LYMPH % 37.1 % (9.0-44.0); LYMPHOCYTE # 2.5 TH/MM3 (1.0-4.8); MEAN CELL VOLUME 94.9 FL (80.0-100.0); MEAN CORPUSCULAR HEMOGLOBIN 31.6 PG (27.0-34.0); MEAN CORPUSCULAR HGB CONC 33.3 % (32.0-36.0); MEAN PLATELET VOLUME 6.6 FL (7.0-11.0); MONO % 8.6 % (0.0-8.0); MONOCYTE # 0.6 TH/MM3 (0-0.9); PLATELET COUNT 553 TH/MM3 (150-450); RED BLOOD COUNT 2.57 MIL/MM3 (4.00-5.30); RED CELL DISTRIBUTION WIDTH 15.4 % (11.6-17.2); WHITE BLOOD COUNT 6.7 TH/MM3 (4.0-11.0)
--- NOTE | 2017-10-18 11:06 | HHI.GIFU ---
Subjective Remarks Patient still having some mild epigastric abdominal pain but states it is improved Awake able to sit on the side of the bed today Afebrile Contact isolation continues (Ines Alxeander) Objective Vitals I&O Vital Signs Date Time Temp Pulse Resp B/P (MAP) Pulse Ox O2 Delivery O2 Flow Rate FiO2 10/18/17 07:43 97.9 105 18 150/69 (96) 95 10/18/17 01:36 98.0 104 18 148/74 (98) 95 10/17/17 20:36 97.8 114 18 124/58 (80) 100 10/17/17 16:00 96.4 126 19 121/57 (78) 96 10/17/17 12:00 96.6 110 19 155/96 (115) 93 I/O 10/17/17 10/17/17 10/17/17 10/18/17 10/18/17 10/18/17 07:00 15:00 23:00 07:00 15:00 23:00 Intake Total 500 ml 800 ml 240 ml Output Total 750 ml 4 ml Balance -250 ml 796 ml 240 ml Intake Oral 500 ml 800 ml 240 ml Output Urine Total 750 ml 4 ml # Bowel Movements 6 2 Laboratory Laboratory Tests Test 10/18/17 09:15 White Blood Count 6.7 Red Blood Count 2.57 Hemoglobin 8.1 Hematocrit 24.4 Mean Corpuscular Volume 94.9 Mean Corpuscular Hemoglobin 31.6 Mean Corpuscular Hemoglobin Concent 33.3 Red Cell Distribution Width 15.4 Platelet Count 553 Mean Platelet Volume 6.6 Neutrophils (%) (Auto) 53.0 Lymphocytes (%) (Auto) 37.1 Monocytes (%) (Auto) 8.6 Eosinophils (%) (Auto) 1.0 Basophils (%) (Auto) 0.3 Neutrophils # (Auto) 3.6 Lymphocytes # (Auto) 2.5 Monocytes # (Auto) 0.6 Eosinophils # (Auto) 0.1 Basophils # (Auto) 0.0 CBC Comment DIFF FINAL Differential Comment Date/Time Source Procedure Growth Status 10/18/17 07:59 Stool Stool Stool Occult Blood (BOY) Pending Received Imaging Last Impressions Gastric Emptying Nuclear Medicine 10/17/17 0000 Signed Impressions: Service Date/Time: Tuesday, October 17, 2017 09:54 - CONCLUSION: 1. Abnormal gastric emptying with 22%% calculated emptying at 90 minutes. 2. No response to Reglan Matthew Arredondo MD Abdomen/Pelvis CT 10/17/17 0000 Signed Impressions: Service Date/Time: Tuesday, October 17, 2017 16:01 - CONCLUSION: Stable CT scan of the abdomen with no evidence of acute intra-abdominal or pelvic process. Bilateral nonobstructing calyceal renal stones. Pneumobilia without evidence of ductal dilatation. Surgical clips in the upper abdomen without definite visualization of the gallbladder. Correlation with clinical history recommended. Justin Bowers MD Chest X-Ray 10/15/17 0000 Signed Impressions: Service Date/Time: Sunday, October 15, 2017 15:02 - CONCLUSION: No acute disease. Matthew Arredondo MD Physical Exam HEENT: PERRL; normocephalic; atraumatic; no jaundice., Pale, thin CHEST: diminished especially at bases CARDIAC: RRR ABDOMEN: Soft, minimal bloating, epigastric soreness; ; bowel sounds are present EXTREMITIES: No clubbing, cyanosis, or edema. SKIN: Thin skin turgor; no rash; no jaundice. RED CAP: No focal deficits; alert and oriented times 2 (Ines Alexander) Assessment and Plan Plan ASSESSMENT - choking episode after eating chicken, odynophagia - s/p EGD found severe esophagitis with roula- champion tear li ekly from retching b/c of foreign body, pyloric channel ulcer large, evaluate for possible gastroparesis, possible dysphasia - leukocytosis - WBC up today to 17.8, normalized today at 8.9 on 10/17/17. - Patient continues to complain today of left upper quadrant pain to the point that she took pain meds. Pain possible diverticulitis? Rule out. - Gastric emptying scan shows gastroparesis not responsive to Reglan - ST eval shows : Moderate pharyngeal dysphagia, history of aspiration in 2014, recommends to repeat barium swallow , mechanical soft diet with nectar thick liquids PLAN - Repeat barium swallow per recommendation of speech therapy. - [place] thick liquids, discussed with patient not to drink plain water, high risk for aspiration - await bx - Continue to work with speech therapy, may benefit from an outpatient continuation monitoring - Diet full liquids, after gastric emptying study, consider increase diet to heart healthy soft foods - Gastroparesis will try erythromycin 250 mg after food 3 times a day, but unable to take,ie allergy. DCd - Call for any acute bleeding - Monitor labs - continue PPI - supportive care - further recs to follow pt seen by myself and Dr Sanchez, note is written on his behalf (Ines Alexander) Physician Comments Patient seen and examined Agree with above Continue with current supportive care Monitor labs (Boone Sanchez MD) Ines Alexander Oct 18, 2017 11:06 Boone Sanchez MD Oct 19, 2017 00:55
--- NOTE | 2017-10-18 11:59 | RADRPT ---
EXAM DATE/TIME: 10/18/2017 00:00 [facility] COMPARISON: No previous studies available for comparison. INDICATIONS : Dysphagia. Choking of food for a few days. FLUORO TIME: 1.1 minutes IMAGE COUNT: 0 CONTRAST: Dose as prescribed by speech pathologist. MEDICAL HISTORY : Cardiovascular disease. Ulcers. Renal calculi. SURGICAL HISTORY : Appendectomy. Pacemaker. ENCOUNTER: Initial ACUITY: 3 days PAIN SCORE: 0/10 LOCATION: Esophagus. FINDINGS: A modified barium swallow was performed with speech pathology. Patient was given a variety of liquids to swallow. For a full detailed report, see report by the speech pathologist. CONCLUSION: Normal examination. Jd Nielsen MD on October 18, 2017 at 11:56 Board Certified Radiologist. This report was verified electronically.
--- NOTE | 2017-10-18 12:09 | HHI.PR ---
Subjective Remarks At the margin of the bed. She appears in some distress due to pain. Since she has abdominal pain and pain in her chest when she is in. Still was some nausea however refusing medications. Some medications for pain. No fever or chills. No diarrhea or constipation. Objective Vitals Vital Signs Date Time Temp Pulse Resp B/P (MAP) Pulse Ox O2 Delivery O2 Flow Rate FiO2 10/18/17 07:43 97.9 105 18 150/69 (96) 95 10/18/17 01:36 98.0 104 18 148/74 (98) 95 10/17/17 20:36 97.8 114 18 124/58 (80) 100 10/17/17 16:00 96.4 126 19 121/57 (78) 96 I/O 10/17/17 10/17/17 10/17/17 10/18/17 10/18/17 10/18/17 07:00 15:00 23:00 07:00 15:00 23:00 Intake Total 500 ml 800 ml 240 ml Output Total 750 ml 4 ml Balance -250 ml 796 ml 240 ml Intake Oral 500 ml 800 ml 240 ml Output Urine Total 750 ml 4 ml # Bowel Movements 6 2 Result Diagram: 10/18/17 0915 10/17/17 0540 Imaging Last Impressions Gastric Emptying Nuclear Medicine 10/17/17 0000 Signed Impressions: Service Date/Time: Tuesday, October 17, 2017 09:54 - CONCLUSION: 1. Abnormal gastric emptying with 22%% calculated emptying at 90 minutes. 2. No response to Reglan Matthew Arredondo MD Abdomen/Pelvis CT 10/17/17 0000 Signed Impressions: Service Date/Time: Tuesday, October 17, 2017 16:01 - CONCLUSION: Stable CT scan of the abdomen with no evidence of acute intra-abdominal or pelvic process. Bilateral nonobstructing calyceal renal stones. Pneumobilia without evidence of ductal dilatation. Surgical clips in the upper abdomen without definite visualization of the gallbladder. Correlation with clinical history recommended. Justin Bowers MD Chest X-Ray 10/15/17 0000 Signed Impressions: Service Date/Time: Sunday, October 15, 2017 15:02 - CONCLUSION: No acute disease. Matthew Arredondo MD Objective Remarks GENERAL: This is a thin white female in no apparent distress. CARDIOVASCULAR: Regular rate and rhythm without murmurs, gallops, or rubs. RESPIRATORY: Clear to auscultation. Breath sounds equal bilaterally. No wheezes , rales, or rhonchi. GASTROINTESTINAL: Abdomen soft, non-tender, nondistended, right upper quadrant scar noted from old PEG tube. No guarding. MUSCULOSKELETAL: Extremities without clubbing, cyanosis, or edema. No joint tenderness, effusion, or edema noted. No calf tenderness. NEUROLOGICAL: Awake and alert. Cranial nerves II through XII intact. Motor and sensory grossly within normal limits. 4/5 muscle strength in all muscle groups. Normal speech, no facial droop. A/P Problem List: (1) Esophageal obstruction due to food impaction ICD Code: K22.2 - Esophageal obstruction; T18.128A - Food in esophagus causing other injury, initial encounter Status: Acute (2) Dysphagia ICD Code: R13.10 - Dysphagia Status: Acute (3) Chest pain ICD Code: R07.9 - Chest pain, unspecified Status: Acute Assessment and Plan 67-year-old female with past medical history off C. difficile, was cervical spine stenosis, duodenal ulcers, psoriasis, B12 deficiency, and nephrolithiasis who presents to the emergency department via [facility] after choking on a piece of chicken while eating today. Patient continues to complain of throat pain with swallowing. Esophageal obstruction with food s/p - Patient continues to complain of throat pain with swallowing, given morphine while in ED - Chest x-ray done and reviewed, no acute disease seen. - Respiratory rate on admission 37 due to anxiety. Patient was provided with Ativan while in ED, appears calm during my examination. - She is on room air with oxygen saturation 99% - s/p EGD - CLD advanced per GI. - We'll provide hydration with NS@100ml/hr, patient can also have ice chips. - Pain control with IV morphine, as patient cant swallow, Zofran if needed for nausea - gastric emptying study is abnormal. C abd with contrast no acute findings. -ST eval shows : Moderate pharyngeal dysphagia, history of aspiration in 2015, GI recommends to repeat barium swallow , mechanical soft diet with nectar thick liquids Chest pain - Likely related to episode of lunch chicken and throat, denies any throat pain at the time of my examination - Troponin obtained while in ED, 0.02 - EKG done while in ED reviewed, sinus rhythm, heart rate 91 Anemia - CBC reviewed, no leukocytosis hemoglobin 9.1, hematocrit 26.3 - Patient does have history of bleeding ulcers, recheck CBC in the morning, monitor for active bleeding. DVT prophylaxis -SCDs Discussed with the patient, nurse DC plan : Patient with dysphagia and not tolerating food. DC pending improvement and cleared by GI Problem Qualifiers (1) Chest pain: Qualified Codes: R07.9 - Chest pain, unspecified Isabella Hahn MD Oct 18, 2017 12:08
[2017-10-18] MEDS ORDERED: OXYC1TAB63 PO (12:17)
--- NOTE | 2017-10-18 12:19 | HHI.DS ---
Discharge Summary Admission Date Oct 15, 2017 at 16:49 Discharge Date: Oct 18, 2017 Admitting Diagnosis (1) Esophageal obstruction due to food impaction ICD Code: K22.2 - Esophageal obstruction; T18.128A - Food in esophagus causing other injury, initial encounter Diagnosis: Principal Status: Acute (2) Dysphagia ICD Code: R13.10 - Dysphagia Diagnosis: Principal Status: Acute (3) Chest pain ICD Code: R07.9 - Chest pain, unspecified Diagnosis: Principal Status: Acute Procedures EGD Brief History - From Admission 67-year-old female with past medical history significant for C. difficile, was cervical spine stenosis, duodenal ulcers, psoriasis, B12 deficiency, and nephrolithiasis who presents to the emergency department via [facility] after choking on a piece of chicken while eating today. Reports she was at a [employer] restaurant and was eating sesame chicken when she swallowed and began coughing, she then felt as if she could not breath and continued coughing so they called [facility]. Patient believes she did manage to swallowed a piece of chicken and does not believe it was ever coughed up or expelled. She continues to have throat pain and states that it is painful when she swallows. She also reports chest pain during the episode, denies any chest pain at the moment. Besides throat pain she also complains of mid back pain which she states she has had for a number of years due to arthritis.at the moment she also complains of some SOB, will cough and sputum is productive and describes it as yellow. Denies experiencing any fever, chills, nausea, or vomiting. Patient denies any choking or coughing in the past while eating or drinking. She does report that at one point she did have a feeding tube but that was due to her prolonged stay in the hospital when she had neck fusion. Denies having to thicken fluids to drink. CBC/BMP: 10/18/17 0915 10/17/17 0540 Significant Findings Laboratory Tests Test 10/15/17 15:10 10/16/17 08:05 10/17/17 05:40 10/18/17 09:15 Red Blood Count 2.78 MIL/MM3 (4.00-5.30) 2.66 MIL/MM3 (4.00-5.30) 2.37 MIL/MM3 (4.00-5.30) 2.57 MIL/MM3 (4.00-5.30) Hemoglobin 9.1 GM/DL (11.6-15.3) 8.4 GM/DL (11.6-15.3) 7.8 GM/DL (11.6-15.3) 8.1 GM/DL (11.6-15.3) Hematocrit 26.3 % (35.0-46.0) 25.1 % (35.0-46.0) 22.6 % (35.0-46.0) 24.4 % (35.0-46.0) Platelet Count 713 TH/MM3 (150-450) 714 TH/MM3 (150-450) 563 TH/MM3 (150-450) 553 TH/MM3 (150-450) Mean Platelet Volume 6.9 FL (7.0-11.0) 6.9 FL (7.0-11.0) 6.8 FL (7.0-11.0) 6.6 FL (7.0-11.0) Albumin 2.6 GM/DL (3.4-5.0) Chloride Level 110 MEQ/L (98-107) 110 MEQ/L (98-107) 111 MEQ/L (98-107) Estimat Glomerular Filtration Rate 88 ML/MIN (>89) White Blood Count 17.8 TH/MM3 (4.0-11.0) Neutrophils (%) (Auto) 86.4 % (16.0-70.0) Neutrophils # (Auto) 15.4 TH/MM3 (1.8-7.7) Band Neutrophils % 26 % (0-6) Lymphocytes % 8 % (9-44) Neutrophils # (Manual) 15.7 TH/MM3 (1.8-7.7) Platelet Estimate HIGH (NORMAL) Calcium Level 7.8 MG/DL (8.5-10.1) Potassium Level 3.4 MEQ/L (3.5-5.1) Monocytes (%) (Auto) 8.6 % (0.0-8.0) Imaging Last Impressions Gastric Emptying Nuclear Medicine 10/17/17 0000 Signed Impressions: Service Date/Time: Tuesday, October 17, 2017 09:54 - CONCLUSION: 1. Abnormal gastric emptying with 22%% calculated emptying at 90 minutes. 2. No response to Reglan Matthew Arredondo MD Abdomen/Pelvis CT 10/17/17 0000 Signed Impressions: Service Date/Time: Tuesday, October 17, 2017 16:01 - CONCLUSION: Stable CT scan of the abdomen with no evidence of acute intra-abdominal or pelvic process. Bilateral nonobstructing calyceal renal stones. Pneumobilia without evidence of ductal dilatation. Surgical clips in the upper abdomen without definite visualization of the gallbladder. Correlation with clinical history recommended. Justin Bowers MD Chest X-Ray 10/15/17 0000 Signed Impressions: Service Date/Time: Sunday, October 15, 2017 15:02 - CONCLUSION: No acute disease. Matthew Arredondo MD PE at Discharge GENERAL: This is a thin white female in no apparent distress. CARDIOVASCULAR: Regular rate and rhythm without murmurs, gallops, or rubs. RESPIRATORY: Clear to auscultation. Breath sounds equal bilaterally. No wheezes , rales, or rhonchi. GASTROINTESTINAL: Abdomen soft, non-tender, nondistended, right upper quadrant scar noted from old PEG tube. No guarding. MUSCULOSKELETAL: Extremities without clubbing, cyanosis, or edema. No joint tenderness, effusion, or edema noted. No calf tenderness. NEUROLOGICAL: Awake and alert. Cranial nerves II through XII intact. Motor and sensory grossly within normal limits. 4/5 muscle strength in all muscle groups. Normal speech, no facial droop. Pt update on day of discharge tolerates food , pain is better controlled. Hospital Course 67-year-old female with past medical history off C. difficile, was cervical spine stenosis, duodenal ulcers, psoriasis, B12 deficiency, and nephrolithiasis who presents to the emergency department via Gastric emptying study is s;ightly abnormal. C abd with contrast no acute findings. ST eval shows : Moderate pharyngeal dysphagia, history of aspiration in 2015 , GI recommends to repeat barium swallow , mechanical soft diet with nectar thick liquids. Patient is tolerating food, cleared by GI for DC. To follow up as OP Tolerates food. pain better controlled. To follow up as OP with PC{ and consultants. Pt Condition on Discharge: Stable Discharge Disposition: Disch w/ Home Health Serv Discharge Time: > 30 minutes Discharge Instructions DIET: Follow Instructions for: Heart Healthy Diet Speech Therapy-Diet Recommends: Mechanical Soft, [place] Thickened Liquids Activities you can perform: Regular-No Restrictions Follow up Referrals: Gastroenterology - 2 Weeks PCP Follow-up - 2-3 Days New Medications: Lactobacillus Acidophilus (Lactinex) 1 Chew 1 TAB CHEW BID for Nutritional Supplement, #60 TAB 0 Refills Oxycodone-Acetaminophen (Oxycodone-Acetaminophen) 5-325 mg Tab 1 TAB PO Q6H PRN for PAIN, #10 TAB 0 Refills Pantoprazole (Pantoprazole) 40 Mg Tab 40 MG PO DAILY for esophagitis/gerd , #30 TAB Continued Medications: Loperamide HCl (Hm Loperamide HCl) 2 Mg Cap 2 MG PO Q4H PRN for diarrhea, #30 CAP Potassium Chloride ER (Potassium Chloride ER) 20 Meq Tab 20 MEQ PO DAILY for Electrolyte Replacement, #30 TAB 0 Refills Isabella Hahn MD Oct 18, 2017 12:19
[2017-10-18] MEDS ORDERED: PANT40TA3 PO (12:21)
[2017-10-18] MEDS ORDERED: LACTCHW3 CHEW (12:21)
[2017-10-18] MEDS ORDERED: LOPERAMIDE HCL SOLN 2 MG/10 ML UDC PO PRN (12:30)
[2017-10-18] MEDS ORDERED: LOPERAMIDE HCL SOLN 2 MG/10 ML UDC PO ONE (12:30)
[2017-10-18 12:40] VITALS: BP 141/69; PULSE 101; RESP 18; TEMP 97.6; O2SAT 97
[2017-10-18] MEDS ORDERED: LACTOBACILLUS ACIDOPHILUS TAB PO SCH (13:00)
[2017-10-18 13:51] VITALS: BP 132/99; PULSE 118; RESP 18; TEMP 98; O2SAT 97
== END 2017-10-18 14:36 | disposition home or self-care (01) ==
LOC: NEPE 14:24 → NEDA 16:49 → NEPGCP 19:23
PROVIDERS: ADMIT Hospitalist; ATTEND Hospitalist
DX: K22.2 Esophageal obstruction (principal); T18.128A Food in esophagus causing other injury, initial encounter; K25.9 Gastric ulcer, unspecified as acute or chronic, without hemorrhage or perforation; K22.6 Gastro-esophageal laceration-hemorrhage syndrome; K31.84 Gastroparesis; K20.9 Esophagitis, unspecified; R07.9 Chest pain, unspecified; R06.02 Shortness of breath; D72.829 Elevated white blood cell count, unspecified; D64.9 Anemia, unspecified; F41.9 Anxiety disorder, unspecified; Z86.72 Personal history of thrombophlebitis; Z87.11 Personal history of peptic ulcer disease; Z87.442 Personal history of urinary calculi; Z87.891 Personal history of nicotine dependence; Z98.1 Arthrodesis status
CPT/HCPCS: 00731; 43239; 71045; 74177; 74230; 78264; 80048; 80053; 82272; 84484; 85007; 85025; 85027; 88305; 88312; 92610; 92611; 93005; 96360; 96361; 96372; 96374; 96375; 96376; 99285; A9541; G0378; G8996; G8997; G8998; J0330; J1100; J2060; J2250; J2270; J2405; J2765; J3010; J7030; Q9963; Q9967; J1610

== ENCOUNTER 2017-10-30 11:23 | Emergency (ER) | payer OTHER, MEDICAID ==
[2017-10-30] VITALS (7 sets, daily range): BP systolic 102–132; BP diastolic 56–77; PULSE 117–135; RESP 20–44; TEMP 98.3; O2SAT 96
[~2017-10-30] VITALS: Ht 170.2 cm; Wt 52.0 kg
[~2017-10-30 11:23] MED LIST changes: -DEXAMETHASONE SOD PHOS 4 MG/ML VIAL IV ONE; -DICY10 PO; +LACTCHW3 CHEW; -LIDOCAINE HCL 1% PF 5 ML SYRINGE OTHER ONE; -LOMO2.5T PO; -ONDANSETRON HCL 4 MG/2 ML VIAL IV ONE; +OXYC1TAB63 PO; -PROPOFOL 200 MG/20 ML AMP IV ONE; -SUCCINYLCHOLINE CHLORIDE 200 MG/10 ML VIAL IV ONE
[2017-10-30] MEDS ORDERED: SODIUM CHLOR 0.9% 1000 ML INJ 1,000 ML IV ONE ×2 (11:38→12:45)
--- NOTE | 2017-10-30 11:46 | PD ---
HPI Chief Complaint: Pain: Acute or Chronic Time Seen by Provider: 11:34 Travel History International Travel<30 days: No Contact w/Intl Traveler<30days: No Traveled to known affect area: No History of Present Illness HPI 67-year-old female with PMH of Shae-Regalado tear, nephrolithiasis, Hep C, C. difficile, MRSA presents to the ED via EMS for evaluation a 3 week history of RUQ abdominal pain. Rated 10/10, constant, no alleviating or exacerbating factors reported. She can identify no acute injury to the area. She states that the pain is so great that it makes her short of breath. She denies fevers , chills, chest pain, palpitations, nausea, vomiting, changes in bowel habits, dysuria. Patient states that she had this pain at last hospital admission. She has treated at home with Lortab. She states that she was improving until 4 days ago. ?? outpatient GI follow up since last admission. PFSH Past Medical History Hx Anticoagulant Therapy: No Arthritis: Yes Asthma: No Heart Rhythm Problems: No Cardiovascular Problems: Yes (PHLEBITIS) High Cholesterol: No Chest Pain: Yes Congestive Heart Failure: No COPD: No Cerebrovascular Accident: No Diabetes: No Diminished Hearing: No Gastrointestinal Disorders: Yes Headaches: No Hiatal Hernia: No Hypertension: No Immune Disorder: No Kidney Stones: Yes Musculoskeletal: Yes Neurologic: No Respiratory: No Immunizations Current: No Migraines: Yes (as a child ) Seizures: No Sleep Apnea: No Ulcer: Yes (states hx of bleeding ulcers) Menopausal: Yes : 0 Past Surgical History Abdominal Surgery: No Appendectomy: Yes Cardiac Surgery: No Ear Surgery: No Endocrine Surgery: No Eye Surgery: No Genitourinary Surgery: No Gynecologic Surgery: No Neurologic Surgery: Yes (CYST REMOVED FROM SPINE) Oral Surgery: No Thoracic Surgery: No Tonsillectomy: Yes Other Surgery: Yes Social History Alcohol Use: No Tobacco Use: No (QUIT 2009) Substance Use: No Allergies-Medications (Allergen,Severity, Reaction): Coded Allergies: *MDRO Multi-Drug Resistant Organism (Verified Adverse Reaction, Unknown, ) 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 Reported Meds & Prescriptions Reported Meds & Active Scripts Active Potassium Chloride ER (Potassium Chloride) 20 Meq Tab 20 Meq PO DAILY Hm Loperamide HCl (Loperamide HCl) 2 Mg Cap 2 Mg PO Q4H PRN Review of Systems Except as stated in HPI: all other systems reviewed are Neg Physical Exam Narrative GENERAL: Cachectic, chronically ill-appearing, white female, moaning, hyperventilating. SKIN: Focused skin assessment warm/dry. HEAD: Normocephalic. EYES: No scleral icterus. No injection or drainage. NECK: Supple, trachea midline. No JVD or lymphadenopathy. CARDIOVASCULAR: Regular rate and rhythm without murmurs, gallops, or rubs. RESPIRATORY: Breath sounds clear bilaterally. Right side diminished as compared to the left. No accessory muscle use. GASTROINTESTINAL: Abdomen soft, nondistended. Diffusely tender to palpation. Positive right-sided flank tenderness. RECTAL EXAM: No masses or tenderness, stool is brown. Guaiac positive. MUSCULOSKELETAL: No cyanosis, or edema. BACK: Nontender without obvious deformity. Positive right-sided CVA tenderness. Data Data Last Documented VS Vital Signs Date Time Temp Pulse Resp B/P (MAP) Pulse Ox O2 Delivery O2 Flow Rate FiO2 10/30/17 16:14 125 20 122/77 (92) Room Air 10/30/17 15:00 3.00 10/30/17 11:34 98.3 Orders Orders Sepsis Workup Initiated (10/30/17 ) Complete Blood Count With Diff (10/30/17 11:38) Comprehensive Metabolic Panel (10/30/17 11:38) Prothrombin Time / Inr (Pt) (10/30/17 11:38) Act Partial Throm Time (Ptt) (10/30/17 11:38) Lactic Acid Sepsis Protocol (10/30/17 11:38) Lipase (10/30/17 11:38) Troponin I (10/30/17 11:38) Urinalysis - C+S If Indicated (10/30/17 11:38) Blood Culture (10/30/17 11:38) Chest, Single Ap (10/30/17 11:38) Blood Glucose (10/30/17 11:38) Ecg Monitoring (10/30/17 11:38) Iv Access Insert/Monitor (10/30/17 11:38) Oximetry (10/30/17 11:38) Oxygen Administration (10/30/17 11:38) Sodium Chlor 0.9% 1000 Ml Inj (Ns 1000 M (10/30/17 11:38) Ct Abd/Pel W Iv Contrast(Rout) (10/30/17 11:41) Morphine Inj (Morphine Inj) (10/30/17 12:00) Iohexol 350 Inj (Omnipaque 350 Inj) (10/30/17 12:40) Piperacil-Tazo 4.5 Gm Premix (Zosyn 4.5 (10/30/17 12:41) Vancomycin Inj (Vancomycin Inj) (10/30/17 12:45) Sodium Chlor 0.9% 1000 Ml Inj (Ns 1000 M (10/30/17 12:45) Arterial Blood Gas (Abg) (10/30/17 ) Electrocardiogram (10/30/17 ) Radiology Film Requests (10/30/17 ) Morphine Inj (Morphine Inj) (10/30/17 13:45) Lidocaine 2% Inj (Xylocaine 2% Inj) (10/30/17 13:48) Midazolam Inj (Versed Inj) (10/30/17 13:56) Chest, Single Ap (10/30/17 ) Sodium Chlor 0.9% 1000 Ml Inj (Ns 1000 M (10/30/17 14:45) Type And Screen (10/30/17 15:05) Red Blood Cells (Rbc) (10/30/17 15:05) Blood Product Administration (10/30/17 15:05) Sodium Chlor 0.9% 250 Ml Inj (Ns 250 Ml (10/30/17 15:15) Complete Blood Count With Diff (10/30/17 15:05) Fluid Culture And Gram Stain (10/30/17 15:05) Morphine Inj (Morphine Inj) (10/30/17 15:15) Labs Laboratory Tests Test 10/30/17 11:50 10/30/17 11:58 10/30/17 14:23 10/30/17 15:24 White Blood Count 8.8 TH/MM3 3.4 TH/MM3 Red Blood Count 3.29 MIL/MM3 3.14 MIL/MM3 Hemoglobin 9.9 GM/DL 9.5 GM/DL Hematocrit 31.1 % 29.9 % Mean Corpuscular Volume 94.5 FL 95.1 FL Mean Corpuscular Hemoglobin 29.9 PG 30.3 PG Mean Corpuscular Hemoglobin Concent 31.7 % 31.8 % Red Cell Distribution Width 15.7 % 15.2 % Platelet Count 628 TH/MM3 502 TH/MM3 Mean Platelet Volume 7.2 FL 6.8 FL Neutrophils (%) (Auto) 78.4 % 74.1 % Lymphocytes (%) (Auto) 16.8 % 16.5 % Monocytes (%) (Auto) 3.9 % 8.9 % Eosinophils (%) (Auto) 0.7 % 0.2 % Basophils (%) (Auto) 0.2 % 0.3 % Neutrophils # (Auto) 6.9 TH/MM3 2.5 TH/MM3 Lymphocytes # (Auto) 1.5 TH/MM3 0.6 TH/MM3 Monocytes # (Auto) 0.3 TH/MM3 0.3 TH/MM3 Eosinophils # (Auto) 0.1 TH/MM3 0.0 TH/MM3 Basophils # (Auto) 0.0 TH/MM3 0.0 TH/MM3 CBC Comment DIFF FINAL DIFF FINAL Differential Comment Prothrombin Time 12.1 SEC Prothromb Time International Ratio 1.2 RATIO Activated Partial Thromboplast Time 20.2 SEC Blood Urea Nitrogen 13 MG/DL Creatinine 1.29 MG/DL Random Glucose 201 MG/DL Total Protein 6.2 GM/DL Albumin 2.1 GM/DL Calcium Level 8.2 MG/DL Alkaline Phosphatase 101 U/L Aspartate Amino Transf (AST/SGOT) 23 U/L Alanine Aminotransferase (ALT/SGPT) 24 U/L Total Bilirubin 0.5 MG/DL Sodium Level 134 MEQ/L Potassium Level 3.7 MEQ/L Chloride Level 99 MEQ/L Carbon Dioxide Level 17.4 MEQ/L Anion Gap 18 MEQ/L Estimat Glomerular Filtration Rate 41 ML/MIN Lactic Acid Level 9.0 mmol/L 5.7 mmol/L Troponin I 0.03 NG/ML Lipase 66 U/L Urine Color YELLOW Urine Turbidity CLEAR Urine pH 7.0 Urine Specific [place] 1.018 Urine Protein 30 mg/dL Urine Glucose (UA) NEG mg/dL Urine Ketones NEG mg/dL Urine Occult Blood NEG Urine Nitrite NEG Urine Bilirubin NEG Urine Urobilinogen LESS THAN 2.0 MG/DL Urine Leukocyte Esterase NEG Urine RBC LESS THAN 1 /hpf Urine WBC 3 /hpf Urine Squamous Epithelial Cells <1 /hpf Urine Hyaline Casts 1 /lpf Urine Mucus FEW /lpf Microscopic Urinalysis Comment CATH-CULT NOT IND Blood Gas Puncture Site RT RADIAL Blood Gas Patient Temperature 98.6 Blood Gas HCO3 15 mmol/L Blood Gas Base Excess -9.9 mmol/L Blood Gas Oxygen Saturation 96 % Arterial Blood pH 7.28 Arterial Blood Partial Pressure CO2 34 mmHg Arterial Blood Partial Pressure O2 120 mmHG Arterial Blood Oxygen Content 11.7 Vol % Arterial Blood Carboxyhemoglobin 1.1 % Arterial Blood Methemoglobin 1.0 % Blood Gas Hemoglobin 8.5 G/DL Oxygen Delivery Device NASAL CANNULA Blood Gas Liter Flow 5 L/M MDM Medical Decision Making Medical Screen Exam Complete: Yes Emergency Medical Condition: Yes Differential Diagnosis Shae Regalado tear versus esophageal rupture verusus pneumonia versus metabolic derangement versus cholecystitis versus GI bleed versus nephroureterolithiasis versus sepsis versus other Narrative Course 67-year-old female with PMH of Shae-Regalado tear, nephrolithiasis, Hep C presents to the ED for evaluation a 3 week history of RUQ abdominal pain. She can identify no acute injury to the area. She states that the pain is so great that it makes her short of breath. She denies fevers, chills, chest pain, palpitations, nausea, vomiting, changes in bowel habits, dysuria. Patient states that she had this pain at last hospital admission. She states that she was improving until 4 days ago. Family arrives and states that the patient had multiple episodes of bilious vomiting over the last few days and has been taking 'a lot" of ibuprofen. NO outpatient GI follow up since last admission. On arrival Temp 98.3 rectal. Pulse 135, respiratory rate 20, BP 102/57 on presentation. O2 sats around 87%, waveform is spotty.. ABG ordered and pending. Physical exam reveals a cachectic, ill-appearing, hyperventilating, moaning white female in no acute distress. Abdomen is diffusely tender. Rectal exam guaiac positive. IV was established. Fluid resuscitation was initiated. Patient was administered 2 mg morphine IV. Per record review the patient was admitted to the hospital 10/15/16, discharged . During that time she had an abnormal gastric emptying test with 22% calculated emptying at 90 minutes and no response to Reglan. She was cleared by GI for DC and outpatient FU. EKG rate 135, sinus tachycardia with short HI interval. HI interval 117, QRS 85 , QTC 385. ST changes in the lateral leads. Reviewed by Dr. Woodard. CXR: Mild to moderate pneumothorax on the right. Increased density in the right base representing atelectasis, consolidation and/or effusion. Per radiology read. Cardiac enzymes negative 1 CBC: WBC 8.8. Neutrophil predominant. RBC 3.29. Hemoglobin 9.9. Hematocrit 31.1. CMP: BUN 13. Creatinine 1.29. Glucose 201. Calcium 8.2. Lipase 66. Lactic acid 9.0. Repeat lactic 5.7. UA: No culture indicated. ABG: PH 7.342. PCO2 39.4. HCO3 20.8. CT ABDOMEN PELVIS: Large right effusion and moderate right pneumothorax. Mild left pleural effusion. Free intraperitoneal air. Prominent air around the distal esophagus. A rupture of the distal esophagus could explain all the above findings. This could represent a Boerhaave syndrome. Moderate ascites. Persistent pneumobilia. Nonobstructing renal stones. Per radiology read. Patient was administered 1 g of vancomycin and 4.5 mg Zofran IV. Type and screen ordered with 2 units PRBCs pending repeat hemoglobin. I discussed the case with Dr. Woodard. He assumed care of the patient at this point. Pigtail catheter chest tube was placed. Please see Dr. Woodard's note for those details. Dr. Woodard discussed transfer with the call physician at [facility]. Diflucan was ordered at the doctor's request. Please see Dr. Woodard's notes for further details. Elaina Mathias Oct 30, 2017 11:46
[2017-10-30] MEDS ORDERED: MORPHINE SULFATE 2 MG/ML INJ IV PUSH ONE ×2 (12:00→15:15)
[2017-10-30 12:19] LABS: AUTOMATED NEUTROPHIL # 6.9 TH/MM3 (1.8-7.7); BASOPHIL % 0.2 % (0.0-2.0); EOSINOPHIL # 0.1 TH/MM3 (0-0.4); EOSINOPHIL % 0.7 % (0.0-4.0); HEMATOCRIT 31.1 % (35.0-46.0); HEMOGLOBIN 9.9 GM/DL (11.6-15.3); LYMPH % 16.8 % (9.0-44.0); LYMPHOCYTE # 1.5 TH/MM3 (1.0-4.8); MEAN CELL VOLUME 94.5 FL (80.0-100.0); MEAN CORPUSCULAR HEMOGLOBIN 29.9 PG (27.0-34.0); MEAN CORPUSCULAR HGB CONC 31.7 % (32.0-36.0); MEAN PLATELET VOLUME 7.2 FL (7.0-11.0); MONO % 3.9 % (0.0-8.0); MONOCYTE # 0.3 TH/MM3 (0-0.9); NEUT % 78.4 % (16.0-70.0); PLATELET COUNT 628 TH/MM3 (150-450); RED BLOOD COUNT 3.29 MIL/MM3 (4.00-5.30); RED CELL DISTRIBUTION WIDTH 15.7 % (11.6-17.2); WHITE BLOOD COUNT 8.8 TH/MM3 (4.0-11.0)
[2017-10-30 12:22] LABS: BILIRUBIN, URINE NEG (NEG); BLOOD, URINE NEG (NEG); GLUCOSE,URINE NEG (NEG); HYALINE CAST, URINE 1 /lpf (RARE); KETONE, URINE NEG (NEG); MUCUS URINE FEW /lpf (OCC); NITRITE,URINE NEG (NEG); SQUAMOUS EPITHELIAL CELL URINE <1 /hpf (0-5); URINE COLOR YELLOW (YELLW/STRAW); URINE LEUKOCYTE ESTERASE NEG (NEG)
--- NOTE | 2017-10-30 12:36 | RADRPT ---
EXAM DATE/TIME: 10/30/2017 11:58 [facility] COMPARISON: CHEST SINGLE AP, October 15, 2017, 15:02. INDICATIONS : Short of breath with right side rib pain. MEDICAL HISTORY : None. SURGICAL HISTORY : None. ENCOUNTER: Initial ACUITY: 3 days PAIN SCORE: 7/10 LOCATION: Right chest FINDINGS: There is a mild to moderate pneumothorax measuring 1.8 cm over the right apex. This increased density at the right base. The heart size appears grossly intact. There is minimal shift of the upper medias tinal structures towards the left. The left lung appears grossly clear. There is an anterior cervical fusion plate present. CONCLUSION: 1. [id number] pneumothorax on the right. 2. Increased density at the right base representing atelectasis, consolidation and/or effusion. This information was relayed by telephone to Dr. Yamilet Segovia MD on October 30, 2017 at 12:29 Board Certified Radiologist. This report was verified electronically.
[2017-10-30 12:40] LABS: ALBUMIN 2.1 GM/DL (3.4-5.0); ALT (GPT) 24 U/L (10-53); AST (GOT) 23 U/L (15-37); BICARBONATE 17.4 MEQ/L (21.0-32.0); BLOOD UREA NITROGEN 13 MG/DL (7-18); CALCIUM 8.2 MG/DL (8.5-10.1); CHLORIDE 99 MEQ/L (98-107); CREATININE 1.29 MG/DL (0.50-1.00); GLOMERULAR FILTRATION RATE 41 ML/MIN (>89); GLUCOSE,RANDOM 201 MG/DL (74-106); SODIUM (NA) 134 MEQ/L (136-145)
[2017-10-30] MEDS ORDERED: IOHEXOL 350 MG/ML 10 ML VIAL (for RAD DIAG) IVCONTRAST ONE (12:40)
[2017-10-30] MEDS ORDERED: PIPERACIL-TAZO 4.5 GM PREMIX 100 ML IV STA (12:41)
[2017-10-30 12:44] LABS: ALKALINE PHOSPHATASE 101 U/L (45-117); TOTAL BILIRUBIN ADULT 0.5 MG/DL (0.2-1.0); TOTAL PROTEIN 6.2 GM/DL (6.4-8.2); TROPONIN I 0.03 NG/ML (0.02-0.05)
[2017-10-30] MEDS ORDERED: VANCOMYCIN INJ 1,000 MG in SODIUM CHLOR 0.9% 250 ML INJ 250 ML IV ONE (12:45)
[2017-10-30 12:53] LABS: INTERNATIONAL NORMALIZED RATIO 1.2 RATIO; PROTHROMBIN TIME - PATIENT 12.1 SEC (9.8-11.6)
--- NOTE | 2017-10-30 12:59 | RADRPT ---
EXAM DATE/TIME: 10/30/2017 12:22 [facility] COMPARISON: CT ABDOMEN & PELVIS W CONTRAST, October 17, 2017, 16:01. INDICATIONS : Abdomen pain and back pain IV CONTRAST: 72 cc Omnipaque 350 (iohexol) IV ORAL CONTRAST: No oral contrast ingested. RADIATION DOSE: 6.64 CTDIvol (mGy) MEDICAL HISTORY : Cardiovascular disease. Ulcers. Renal calculi. SURGICAL HISTORY : Pacemaker. Appendectomy. ENCOUNTER: Initial ACUITY: 4 - 6 days PAIN SCALE: 10/10 LOCATION: Abdomen TECHNIQUE: Volumetric scanning of the abdomen and pelvis was performed. Using automated exposure control and ad justment of the mA and/or kV according to patient size, radiation dose was kept as low as reasonably achievable to obtain optimal diagnostic quality images. DICOM format image data is available electro nically for review and comparison. FINDINGS: LOWER LUNGS: There is a moderate right pleural effusion. There is a mild left pleural effusion. There is a moderat e pneumothorax seen on the right measuring up to 3 cm anteriorly. There is some fluid adjacent to the anterior and apical cardiac margin which may relate to pericardial fluid versus left pleural fluid i n this region. Fluid is not seen in the dependent posterior pericardium. There is air seen around th e distal esophagus. The air extends inferior to the heart. The distal esophageal rupture needs to be strongly considered. LIVER: Again noted is pneumobilia. Air seen within the gallbladder. Metallic density is seen in the melissa he patis region and in the right lower abdomen at the level of iliac crest.. SPLEEN: Normal size without lesion. There is a calcified granuloma. PANCREAS: The pancreatic duct is dilated measuring 4 mm the pancreatic body and tail. KIDNEYS: There are bilateral nonobstructing renal stones seen being more numerous on the left. ADRENAL GLANDS: There is a 1.7 cm right adrenal gland mass. VASCULAR: There is no aortic aneurysm. BOWEL/MESENTERY: There are several small foci of free air seen in the upper abdomen. The source of the free air is not seen within the abdomen. However, there does appear to be air around the distal esophagus which rais es the possibility this may be the source of the free air in the chest and abdomen. There is a modera te amount of ascites seen throughout the perineal cavity. ABDOMINAL WALL: Within normal limits. RETROPERITONEUM: There is no lymphadenopathy. BLADDER: No wall thickening or mass. REPRODUCTIVE: Within normal limits. INGUINAL: There is no lymphadenopathy or hernia. MUSCULOSKELETAL: There is degenerative change in the lumbar spine. CONCLUSION: 1. Large right effusion and moderate right pneumothorax. 2. Mild left pleural effusion. 3. Free intraperitoneal air. 4. Prominent air around the distal esophagus. A rupture of the distal esophagus could explain all the above findings. This could represent a Boerhaave's syndrome. 5. Moderate ascites. 6. Persistent pneumobilia. 7. Nonobstructing renal stones. Rajesh Segovia MD on October 30, 2017 at 12:41 Board Certified Radiologist. This report was verified electronically.
--- NOTE | 2017-10-30 13:19 | PD ---
Data Data Last Documented VS Vital Signs Date Time Temp Pulse Resp B/P (MAP) Pulse Ox O2 Delivery O2 Flow Rate FiO2 10/30/17 12:51 123 44 121/56 (77) 10/30/17 11:47 Nasal Cannula 3.00 10/30/17 11:34 98.3 Orders Orders Sepsis Workup Initiated (10/30/17 ) Complete Blood Count With Diff (10/30/17 11:38) Comprehensive Metabolic Panel (10/30/17 11:38) Prothrombin Time / Inr (Pt) (10/30/17 11:38) Act Partial Throm Time (Ptt) (10/30/17 11:38) Lactic Acid Sepsis Protocol (10/30/17 11:38) Lipase (10/30/17 11:38) Troponin I (10/30/17 11:38) Urinalysis - C+S If Indicated (10/30/17 11:38) Blood Culture (10/30/17 11:38) Chest, Single Ap (10/30/17 11:38) Blood Glucose (10/30/17 11:38) Ecg Monitoring (10/30/17 11:38) Iv Access Insert/Monitor (10/30/17 11:38) Oximetry (10/30/17 11:38) Oxygen Administration (10/30/17 11:38) Sodium Chlor 0.9% 1000 Ml Inj (Ns 1000 M (10/30/17 11:38) Ct Abd/Pel W Iv Contrast(Rout) (10/30/17 11:41) Morphine Inj (Morphine Inj) (10/30/17 12:00) Iohexol 350 Inj (Omnipaque 350 Inj) (10/30/17 12:40) Piperacil-Tazo 4.5 Gm Premix (Zosyn 4.5 (10/30/17 12:41) Vancomycin Inj (Vancomycin Inj) (10/30/17 12:45) Sodium Chlor 0.9% 1000 Ml Inj (Ns 1000 M (10/30/17 12:45) Arterial Blood Gas (Abg) (10/30/17 ) Labs Laboratory Tests Test 10/30/17 11:50 10/30/17 11:58 White Blood Count 8.8 TH/MM3 Red Blood Count 3.29 MIL/MM3 Hemoglobin 9.9 GM/DL Hematocrit 31.1 % Mean Corpuscular Volume 94.5 FL Mean Corpuscular Hemoglobin 29.9 PG Mean Corpuscular Hemoglobin Concent 31.7 % Red Cell Distribution Width 15.7 % Platelet Count 628 TH/MM3 Mean Platelet Volume 7.2 FL Neutrophils (%) (Auto) 78.4 % Lymphocytes (%) (Auto) 16.8 % Monocytes (%) (Auto) 3.9 % Eosinophils (%) (Auto) 0.7 % Basophils (%) (Auto) 0.2 % Neutrophils # (Auto) 6.9 TH/MM3 Lymphocytes # (Auto) 1.5 TH/MM3 Monocytes # (Auto) 0.3 TH/MM3 Eosinophils # (Auto) 0.1 TH/MM3 Basophils # (Auto) 0.0 TH/MM3 CBC Comment DIFF FINAL Differential Comment Prothrombin Time 12.1 SEC Prothromb Time International Ratio 1.2 RATIO Activated Partial Thromboplast Time 20.2 SEC Blood Urea Nitrogen 13 MG/DL Creatinine 1.29 MG/DL Random Glucose 201 MG/DL Total Protein 6.2 GM/DL Albumin 2.1 GM/DL Calcium Level 8.2 MG/DL Alkaline Phosphatase 101 U/L Aspartate Amino Transf (AST/SGOT) 23 U/L Alanine Aminotransferase (ALT/SGPT) 24 U/L Total Bilirubin 0.5 MG/DL Sodium Level 134 MEQ/L Potassium Level 3.7 MEQ/L Chloride Level 99 MEQ/L Carbon Dioxide Level 17.4 MEQ/L Anion Gap 18 MEQ/L Estimat Glomerular Filtration Rate 41 ML/MIN Lactic Acid Level 9.0 mmol/L Troponin I 0.03 NG/ML Lipase 66 U/L Urine Color YELLOW Urine Turbidity CLEAR Urine pH 7.0 Urine Specific [place] 1.018 Urine Protein 30 mg/dL Urine Glucose (UA) NEG mg/dL Urine Ketones NEG mg/dL Urine Occult Blood NEG Urine Nitrite NEG Urine Bilirubin NEG Urine Urobilinogen LESS THAN 2.0 MG/DL Urine Leukocyte Esterase NEG Urine RBC LESS THAN 1 /hpf Urine WBC 3 /hpf Urine Squamous Epithelial Cells <1 /hpf Urine Hyaline Casts 1 /lpf Urine Mucus FEW /lpf Microscopic Urinalysis Comment CATH-CULT NOT IND MDM Supervised Visit with SUSHILA: Yes Narrative Course I, Dr. Woodard, have reviewed the advance practice practitioner's documentation and am in agreement, met with the patient face to face, made the diagnosis, and the medical decision making was done by me. *My assessment and Findings: 67-year-old female presents emergency department for evaluation. The history I have obtained from patient is she presented approximately 3 weeks ago to this facility for evaluation of what appeared to be an esophageal obstruction, she had a barium swallow which was negative admitted did not have GI endoscopy and was ultimately discharged. Patient has a history of present illness of taking significant quantities of ibuprofen recently leading to watery greenish yellow emesis over the past few days. GENERAL: Well-developed, emaciated female appears in mild discomfort. SKIN: Focused skin assessment warm/dry. HEAD: Atraumatic. Normocephalic. Temporal wasting. EYES: Pupils equal and round. No scleral icterus. No injection or drainage. ENT: No nasal bleeding or discharge. Mucous membranes pink and moist. NECK: Trachea midline. No JVD. CARDIOVASCULAR: Tachycardia with regular rhythm. No murmur appreciated. RESPIRATORY: No accessory muscle use. Clear to auscultation. Breath sounds equal bilaterally. GASTROINTESTINAL: Abdomen soft, non-tender, nondistended. Hepatic and splenic margins not palpable. MUSCULOSKELETAL: No obvious deformities. No clubbing. No cyanosis. No edema. NEUROLOGICAL: Awake and alert. No obvious cranial nerve deficits. Motor grossly within normal limits. Normal speech. PSYCHIATRIC: Appropriate mood and affect; insight and judgment normal. After morphine the patient appears significantly more comfortable, chest x-ray reviewed and does show a moderate pneumothorax with a slight right to left shift of the trachea, there is significant pleural effusion in the right lung base, there is also some free air underneath the diaphragm. Discussion with the radiologist chief of production has high suspicion for Boerhaave syndrome in this patient and distal esophageal rupture. Given her recent hospitalization and history of present illness this would be congruent. Patient was discussed with Dr. Gen Brambila who states to me he does not do esophagus. Discussed with Dr. Murdock chief of production for general who also does not do esophageal repairs. Dr. Johanna Brambila highly recommends transfer to tertiary care center. Patient was discussed with [facility], after discussion the patient at length he is accepted the patient to admission to the intensive surgical care unit. We discussed vancomycin and Zosyn of Arty been given, he requested Diflucan be added. We discussed at length chest tube placement prior to transfer, ultimately he was unable to provide recommendation on chest tube placement prior to transfer as he has not seen the patient. Patient had pigtail anterior chest tube placement, yielding approximately 50 cc of dark brown drainage. Patient tolerated the procedure well. Total interventions in the emergency department with vancomycin 1 g, Zosyn 4.5 g , Diflucan 200 mg, Versed 1 mg for chest tube placement, morphine to a total of 6 mg IV, normal saline 2 L IV in the emergency department and 700 cc prior to arrival by EMS. Patient remains critically ill, will be transferred by [facility], she has been stabilized the best of my ability for transfer Critical Care Narrative Aggregate critical care time was 65 minutes. Time to perform other separately billable procedures was not included in the critical care time. My time did not include minutes spent treating any other patients simultaneously or on activities that did not directly contribute to the patient's treatment. The services I provided to this patient were to treat and/or prevent clinically significant deterioration that could result in: , disability, organ failure. I provided critical care services requiring my management, as noted below: Chart data review, documentation time, medication orders and management, vital sign assessments/reviewing monitor data, ordering and reviewing lab tests, ordering and interpreting/reviewing x-rays and diagnostic studies, care of the patient and discussion of the patient with the admitting physicians. Procedures Procedure Narrative CHEST TUBE THORACOSTOMY: The anterior right chest was prepped with Betadine and sterilely draped. The area of the second intercostal interspace was infiltrated with 2% lidocaine plain. A 0.5 centimeter incision was made with a scalpel at the second intercostal space. Pigtail catheter was inserted with sharp trocar, trocar removed, connected to Pleur-evac, tube draining well. The thoracostomy tube was secured with suture. Sterile seal dressing placed. Patient tolerated procedure well. Diagnosis Primary Impression: Boerhaave's syndrome Additional Impression: Sepsis Disposition: 70 TRANSFER TO OTHER FACILITY (Dr. Anais Maldonado Thoracic surgery accepting.) Condition: Stable (To the best of my ability.) Issa Woodard MD Oct 30, 2017 13:19
[2017-10-30] MEDS ORDERED: MORPHINE SULFATE 4 MG/ML INJ IV PUSH ONE (13:45)
[2017-10-30] MEDS ORDERED: LIDOCAINE HCL 2% 50 ML VIAL ONE (13:48)
[2017-10-30] MEDS ORDERED: MIDAZOLAM HCL 5 MG/ML VIAL (1 ML) ONE (13:56)
--- NOTE | 2017-10-30 14:22 | RADRPT ---
EXAM DATE/TIME: 10/30/2017 14:06 [facility] COMPARISON: No previous studies available for comparison. INDICATIONS : Post chest tube placement. MEDICAL HISTORY : None. SURGICAL HISTORY : None. ENCOUNTER: Subsequent ACUITY: 1 day PAIN SCORE: 10/10 LOCATION: Right chest FINDINGS: A single view of the chest demonstrates right-sided chest tube placement. No pneumothorax. Bilateral pleural effusions and bibasilar densities. Osseous structures are intact. CONCLUSION: 1. Right-sided chest tube placement. No pneumothorax. 2. Bilateral pleural effusions and bibasilar densities Damian Pelaez MD on October 30, 2017 at 14:18 Board Certified Radiologist. This report was verified electronically.
[2017-10-30] MEDS ORDERED: SODIUM CHLOR 0.9% 1000 ML INJ 1,000 ML IV SCH (14:45)
[2017-10-30] MEDS ORDERED: SODIUM CHLOR 0.9% 250 ML INJ 250 ML IV ONE (15:15)
[2017-10-30 15:45] LABS: AUTOMATED NEUTROPHIL # 2.5 TH/MM3 (1.8-7.7); BASOPHIL % 0.3 % (0.0-2.0); EOSINOPHIL % 0.2 % (0.0-4.0); HEMATOCRIT 29.9 % (35.0-46.0); HEMOGLOBIN 9.5 GM/DL (11.6-15.3); LYMPH % 16.5 % (9.0-44.0); LYMPHOCYTE # 0.6 TH/MM3 (1.0-4.8); MEAN CELL VOLUME 95.1 FL (80.0-100.0); MEAN CORPUSCULAR HEMOGLOBIN 30.3 PG (27.0-34.0); MEAN CORPUSCULAR HGB CONC 31.8 % (32.0-36.0); MEAN PLATELET VOLUME 6.8 FL (7.0-11.0); MONO % 8.9 % (0.0-8.0); MONOCYTE # 0.3 TH/MM3 (0-0.9); NEUT % 74.1 % (16.0-70.0); PLATELET COUNT 502 TH/MM3 (150-450); RED BLOOD COUNT 3.14 MIL/MM3 (4.00-5.30); RED CELL DISTRIBUTION WIDTH 15.2 % (11.6-17.2); WHITE BLOOD COUNT 3.4 TH/MM3 (4.0-11.0)
[2017-10-30] MEDS ORDERED: HYDROmorphone HCL PF 2 MG/ML VIAL IV PUSH ONE (16:30)
--- NOTE | 2017-11-01 01:20 | EKG ---
Date Performed: 10/30/2017 Time Performed: 11:41:15 PTAGE: 67 years EKG: SINUS TACHYCARDIA WITH SHORT OK INTERVAL LEFT VENTRICULAR HYPERTROPHY AND ST-T CHANGE ABNOR MAL ECG PREVIOUS TRACING : 10/30/2017 11.10 Compared to prior tracing, rate has increased DOCTOR: Zhang Patel Interpretating Date/Time 11/01/2017 01:18:44
== END 2017-10-30 17:35 | disposition short-term general hospital (02) ==
LOC: NEPE 11:23
DX: K22.3 Perforation of esophagus (principal); A41.9 Sepsis, unspecified organism; B95.4 Other streptococcus as the cause of diseases classified elsewhere; B96.89 Other specified bacterial agents as the cause of diseases classified elsewhere; R94.31 Abnormal electrocardiogram [ECG] [EKG]; B19.20 Unspecified viral hepatitis C without hepatic coma; Z91.09 Other allergy status, other than to drugs and biological substances
CPT/HCPCS: 32551; 36600; 71045; 74177; 80053; 81001; 82805; 83605; 83690; 84484; 85025; 85610; 85730; 86850; 86900; 86901; 86920; 87040; 87070; 87077; 87106; 87185; 87205; 93005; 96361; 96365; 96366; 96375; 96376; 99291; J1170; J2250; J2270; J2543; J3370; J7030; J7050; Q9967